=== PATIENT | female | born 1945 | race Caucasian/White ===

== ENCOUNTER 2019-11-20 09:40 | Outpatient (REF) | payer MEDICARE, SELFPAY ==
[2019-11-20 11:21] LABS: Alanine Aminotransferase 18 U/L (0-31); Albumin Level 3.9 g/dL (3.5-5.0); Alkaline Phosphatase 142 U/L (39-117); Anion Gap 13 (12-20); Aspartate Amino Transferase 14 U/L (5-31); Bilirubin Total 0.4 mg/dL (0.0-1.0); Blood Urea Nitrogen 23 mg/dL (9-16); Calcium 9.5 mg/dL (8.4-10.2); Carbon Dioxide 26 mmol/L (22-29); Chloride 106 mmol/L (96-108); Cholesterol 231 mg/dL; Estimated Glomerular Filt Rate > 60; Glucose Random 152 mg/dL (60-115); HDL Cholesterol 48 mg/dL; LDL Cholesterol Calculated 153 mg/dl; Potassium 4.9 mmol/l (3.3-5.1); Sodium 140 mmol/L (135-145); Total Protein 7.4 g/dL (6.5-8.0); Triglycerides 152 mg/dL
[2019-11-20 11:27] LABS: Creatinine Urine 59.82 mg/dL; Microalbum/Creatinine Ratio Ur 157.1 ug/mg cr
[2019-11-20 11:43] LABS: Vitamin D 25-OH Total 44.2 ng/mL (>30)
== END 2019-11-20 09:41 | disposition home or self-care (01) ==
LOC: HO.LAB 09:40
PROVIDERS: PCP Family Medicine; Visit Provider Family Medicine
DX: E11.8 Type 2 diabetes mellitus with unspecified complications (principal); E78.5 Hyperlipidemia, unspecified; I10 Essential (primary) hypertension
CPT/HCPCS: 36415; 80053; 80061; 82043; 82306

== ENCOUNTER 2020-07-15 10:02 | Outpatient (REF) | payer MEDICARE, SELFPAY ==
[2020-07-15 12:17] LABS: Alanine Aminotransferase 20 U/L (0-31); Alkaline Phosphatase 140 U/L (39-117); Anion Gap 15 (12-20); Aspartate Amino Transferase 18 U/L (5-31); Bilirubin Total 0.3 mg/dL (0.0-1.0); Blood Urea Nitrogen 22 mg/dL (9-16); Calcium 9.7 mg/dL (8.4-10.2); Carbon Dioxide 26 mmol/L (22-29); Chloride 106 mmol/L (96-108); Cholesterol 237 mg/dL; Estimated Glomerular Filt Rate > 60; Glucose Random 183 mg/dL (60-115); HDL Cholesterol 47 mg/dL; LDL Cholesterol Calculated 168 mg/dl; Potassium 5.5 mmol/L (3.3-5.1); Sodium 141 mmol/L (135-145); Total Protein 7.6 g/dL (6.5-8.0); Triglycerides 112 mg/dL
[2020-07-15 12:20] LABS: Creatinine Urine 115.88 mg/dL; Microalbum/Creatinine Ratio Ur 252.8 ug/mg cr
== END 2020-07-15 10:03 | disposition home or self-care (01) ==
LOC: HO.LAB 10:02
PROVIDERS: PCP Family Medicine; Visit Provider Family Medicine
DX: E11.8 Type 2 diabetes mellitus with unspecified complications (principal); E78.5 Hyperlipidemia, unspecified; I10 Essential (primary) hypertension
CPT/HCPCS: 36415; 80053; 80061; 82043; 82306

== ENCOUNTER 2021-07-05 10:39 | Outpatient (REF) | payer OTHER, SELFPAY ==
[2021-07-05 11:56] LABS: Estimated Average Glucose 157 mg/dL; Hemoglobin A1c % 7.1 %
[2021-07-05 12:28] LABS: Alanine Aminotransferase 25 U/L (0-31); Albumin Level 3.9 g/dL (3.5-5.0); Alkaline Phosphatase 155 U/L (39-117); Anion Gap 10 (12-20); Aspartate Amino Transferase 22 U/L (5-31); Bilirubin Total 0.4 mg/dL (0.0-1.0); Blood Urea Nitrogen 22 mg/dL (9-16); Calcium 9.5 mg/dL (8.4-10.2); Carbon Dioxide 28 mmol/L (22-29); Chloride 107 mmol/L (96-108); Cholesterol 238 mg/dL; Estimated Glomerular Filt Rate > 60; Glucose Random 153 mg/dL (60-115); HDL Cholesterol 47 mg/dL; LDL Cholesterol Calculated 173 mg/dl; Potassium 4.9 mmol/L (3.3-5.1); Sodium 140 mmol/L (135-145); Total Protein 7.4 g/dL (6.5-8.0); Triglycerides 92 mg/dL
[2021-07-05 14:05] LABS: Creatinine Urine 74.06 mg/dL; Microalbum/Creatinine Ratio Ur 187.6 ug/mg cr
== END 2021-07-05 10:40 | disposition home or self-care (01) ==
LOC: HO.LAB 10:39
PROVIDERS: PCP Family Medicine; Visit Provider Family Medicine
DX: E11.8 Type 2 diabetes mellitus with unspecified complications (principal); E78.5 Hyperlipidemia, unspecified; I10 Essential (primary) hypertension; M81.0 Age-related osteoporosis without current pathological fracture
CPT/HCPCS: 36415; 80053; 80061; 82043; 83036

== ENCOUNTER → 2021-09-19 11:34 | Outpatient (REF) | payer OTHER, SELFPAY ==
--- NOTE | 2021-09-19 11:37 | CA_ITS ---
Transthoracic Echocardiogram Patient (Last, First, Middle): Karen Billy, Gender: Female Date of : 1945 Age: 75 Procedure Date: 09/19/2021 Procedure Type: Transthoracic Echocardiogram Location: OP Height: 154.94 cm Weight: 65.32 kg BSA: 1.64 m2 Heart Rate: bpm BP: 142 / 60 mmHg Underwriting Specialist: HAO Referring MD: Heber Mistry MD Display Specialist: Heber Mistry MD Symptoms: I35.0 - Nonrheumatic aortic (valve) stenosis Study Quality: Adequate ECG Rhythm: Sinus Conclusions: - 1. Normal LV systolic function with grade 2 diastolic dysfunction 2. Probably early aortic stenosis 3. No gross pericardial effusion Findings Left Ventricle Normal left ventricular size, thickness, and systolic function. The visually estimated ejection fraction is between 60-65%. Spectral Doppler is indicative of a pseudonormal filling pattern. E/E prime ratio is >15, consistent with elevated filling pressures. Evidence suggests grade II (moderate) diastolic dysfunction. Right Ventricle Normal right ventricular cavity size and systolic function. Atria The left atrium is normal in size. There is no evidence of interatrial shunt. The right atrium is normal in size. Aortic Valve The aortic valve was not well visualized. There is mild calcification of the aortic valve. There is mild aortic valve stenosis. There is no aortic valve regurgitation. Mitral Valve There is mild anterior and posterior mitral leaflet thickening. There is trace mitral valve regurgitation. There is no mitral valve stenosis. Pulmonic Valve The pulmonic valve was not well visualized. Tricuspid Valve Likely normal tricuspid valve structure and function. Tricuspid regurgitation envelope is inadequate for calculation of right ventricular systolic pressure. Normal right atrial pressure. Great Vessels All visible segments of the aorta are normal in size. The pulmonary artery was not well visualized. Venous The inferior vena cava is normal in size and collapses greater than 50% with inspiration. Pericardium/Pleural There is no evidence of pericardial effusion. Prior Study Comparison No significant change compared to prior study. Measurements 2D Linear Measurements IVSd: 1.01 0.6-0.9/0.6-1.0 cm LVIDd: 4.40 3.9-5.3/4.2-5.9 cm LVIDd Index: 2.68 2.4-3.2/2.2-3.1 cm/m2 LVIDs: 2.70 2.0-3.6 cm LVPWd: 0.99 0.7-1.1 cm LA Diam: 3.30 2.7-3.8/3.0-4.0 cm LAIDs Index: 2.01 1.5-2.3 cm/m2 LV Mass: 184.55 67-162/88-224 g LV Mass Index: 112.53 43-95/49-115 g/m2 LVOT Diam: 1.90 3.0+(-)1.3 cm 2D Systolic Function EF 4C: 63.90 >55% EF 2C: 64.30 >55% EF BiP: 63.40 >55% Mitral Valve MV Pk E: 1.24 MV PK A: 0.95 MV Decel Time: 210.00 E/A: 1.30 E'Lateral: 9.14 E'Medial: 7.83 E/E' Med: 15.80 E/E' Lat: 13.60 PHT: 62.00 MVA PHT: 3.55 Decel Crawford: 5.89 Aortic Valve AoV Pk Napoleon: 2.00 AoV Mn Napoleon: 1.28 AoV VTI: 0.44 AoV Pk Grad: 16.00 Aov Mn Grad: 7.00 DARLYN Cont.VTI: 1.86 LVOT LVOT Pk Napoleon: 1.31 LVOT Mn Napoleon: 0.87 LVOT VTI: 0.31 LVOT Pk Grad: 7.00 LVOT Mn Grad: 4.00 LVOT Diam: 1.90 LVOT Area: 2.84 Diastolic Function MV Pk E: 1.24 MV Pk A: 0.95 E/A: 1.30 E'Medial: 7.83 E/E' Med: 15.80 E' Laterial: 9.14 E/E' Lat: 13.60 Right Ventricle TAPSE (mm): 22.70 TVS' Napoleon: 11.20 Tricuspid Valve RA Press: 3.00 Great Vessels Aorta Sinus of Valsalva: 2.45 2.0-3.[address] [place]: 1.75 1.7-3.4 cm Ao Asc: 3.30 2.1-3.4 cm Updated in Other Vendor System with Status of Final Heber Mistry MD electronically signed on 09/19/2021 4:06:41 PM with status of Final
== END ==
LOC: HO.CARD 11:34
PROVIDERS: PCP Family Medicine; Visit Provider Internal Medicine Cardiovascular Disease
DX: I35.0 Nonrheumatic aortic (valve) stenosis (principal); I51.9 Heart disease, unspecified
CPT/HCPCS: 93306

== ENCOUNTER → 2021-11-09 12:28 | Outpatient (BNVA) | payer OTHER, SELFPAY | PROVIDERS: PCP Family Medicine; Referring Provider Family Medicine; Visit Provider Internal Medicine Cardiovascular Disease | DX: I35.0 Nonrheumatic aortic (valve) stenosis (principal); I10 Essential (primary) hypertension | CPT/HCPCS: 93005; 99212 ==

== ENCOUNTER 2022-04-06 10:42 | Outpatient (REF) | payer OTHER, SELFPAY ==
--- NOTE | ~2022-04-06 | MM_ITS ---
EXAMINATION: BONE DENSITOMETRY CLINICAL INDICATION: Osteoporosis. COMPARISON: Previous BD dated 11/26/2018 and baseline BD dated 04/29/2007. TECHNIQUE: Using a Ring DXA System (software version: 13.1) manufactured by [employer], dual-energy x-ray absorptiometry was performed of the lumbar spine and left hip. The images are of good technical quality. Summary results are attached. FINDINGS: AP SPINE L1-L4: Current: BMD 1.184 g/cm2, Z-score 1.8, T-score 0.0, normal, 1.4% decrease from previous, 12.1% increase from baseline (<5% change is not significant). Prior: BMD 1.201 g/cm2. Baseline: BMD 1.056 g/cm2. LEFT FEMUR, NECK: Current: BMD 0.505 g/cm2, Z-score -1.8, T-score -3.8, osteoporosis. Prior: BMD 0.633 g/cm2. Baseline: BMD 0.821 g/cm2. LEFT FEMUR, TOTAL: Current: BMD 0.492 g/cm2, Z-score -2.2, T-score -4.1, osteoporosis, 10.1% decrease from previous, 36.6% decrease from baseline (<5% change is not significant). Prior: BMD 0.547 g/cm2. Baseline: BMD 0.776 g/cm2. IDENTIFIED RISK FACTORS: Secondary osteoporosis (early menopause). HISTORY OF FRACTURE: None listed. MEDICATIONS: Vitamin D. MM/XR DEXA axial skeleton IMPRESSION: 1. DIAGNOSIS: Osteoporosis based on the lowest T-score value of -4.1 in the total femur applying World Health Organization criteria. 2. 10-YEAR FRACTURE RISK PREDICTION, FRAX: According to the guidelines, FRAX calculation should only be performed on patients in the osteopenia bone density category. Therefore, FRAX was not performed on this patient.? 3. Treatment Recommendations: NOF guidelines recommend consideration for treatment in postmenopausal women and men age 50 and older presenting with the following: -A hip or vertebral (clinical or morphometric) fracture. -T-score less than or equal to -2.5 at the femoral neck or spine after appropriate evaluation to exclude secondary causes. -Low bone mass at the hip or spine and a 10-year fracture probability by FRAX of greater than or equal to 3% for hip fracture or greater than or equal to 20% for major osteoporotic fracture based on the [place] adapted WHO algorithm. 4. Other Recommendations: All treatment decisions require clinical judgment and consideration of individual patient factors, including patient preferences, comorbidities, previous drug use, risk factors not captured in the FRAX model (e.g. frailty, falls, vitamin D deficiency, increased bone turnover, interval significant decline in bone density) and possible under or overestimation of fracture risk by FRAX. Additional medical evaluation for secondary cause of low bone mineral density may be appropriate. FUTURE SCAN RECOMMENDATION: People with diagnosed cases of osteoporosis or at high risk for fracture should have regular bone mineral density tests. For patients eligible for Medicare, routine testing is allowed once every 2 years. The testing frequency can be increased to one year for patients who have rapidly progressing disease, those who are receiving or discontinuing medical therapy to restore bone mass, or have additional risk factors.
== END 2022-04-06 10:43 | disposition home or self-care (01) ==
LOC: HO.MAMMO 10:42
PROVIDERS: PCP Family Medicine; Visit Provider Family Medicine
DX: Z13.820 Encounter for screening for osteoporosis (principal); Z78.0 Asymptomatic menopausal state
CPT/HCPCS: 77080

== ENCOUNTER 2023-02-02 10:30 | Outpatient (REF) | payer OTHER, SELFPAY ==
[2023-02-02 12:11] LABS: Creatinine Urine 81.69 mg/dL
[2023-02-02 12:12] LABS: Parathyroid Hormone Intact 72.1 pg/mL (8.7-77.1)
[2023-02-02 12:13] LABS: Alanine Aminotransferase 17 U/L (0-31); Alkaline Phosphatase 144 U/L (39-117); Anion Gap 16 (12-20); Aspartate Amino Transferase 18 U/L (5-31); Bilirubin Total 0.4 mg/dL (0.0-1.0); Blood Urea Nitrogen 27 mg/dL (9-16); Calcium 9.9 mg/dL (8.4-10.2); Carbon Dioxide 24 mmol/L (22-29); Chloride 105 mmol/L (96-108); Cholesterol 246 mg/dL (<200); Cholesterol 248 mg/dL (<200); Estimated Glomerular Filt Rate > 60; Glucose Random 185 mg/dL (60-115); HDL Cholesterol 46 mg/dL (>40); HDL Cholesterol 47 mg/dL (>40); LDL Cholesterol Calculated 173 mg/dL (<100); LDL Cholesterol Calculated 177 mg/dL (<100); Potassium 4.1 mmol/L (3.3-5.1); Sodium 141 mmol/L (135-145); Total Protein 8.2 g/dL (6.5-8.0); Triglycerides 128 mg/dL (<150); Triglycerides 130 mg/dL (<150)
[2023-02-02 12:14] LABS: Uric Acid 6.6 mg/dL (2.4-5.7)
[2023-02-02 12:25] LABS: Vitamin D 25-OH Total 41.3 ng/mL (>30)
[2023-02-02 12:30] LABS: Microalbum/Creatinine Ratio Ur 784.6 ug/mg cr (<30)
[2023-02-02 12:32] LABS: TSH reflex Free T4 1.51 uIU/mL (0.32-4.0)
[2023-02-02 12:45] LABS: Folate 8.2 ng/mL (> or = 4.0); Vitamin B12 1053 pg/mL (200-900)
[2023-02-02 12:48] LABS: Reflex LDLD? No
== END 2023-02-02 10:31 | disposition home or self-care (01) ==
LOC: HO.HHCL 10:30
PROVIDERS: Internal Medicine Cardiovascular Disease; Visit Provider Family Medicine
DX: M81.8 Other osteoporosis without current pathological fracture (principal); E78.5 Hyperlipidemia, unspecified; I25.10 Atherosclerotic heart disease of native coronary artery without angina pectoris; E11.65 Type 2 diabetes mellitus with hyperglycemia; I10 Essential (primary) hypertension; M10.9 Gout, unspecified
CPT/HCPCS: 36415; 80053; 80061; 82043; 82306; 82570; 82607; 82746; 83970; 84443; 84550

== ENCOUNTER 2023-05-29 12:01 | Outpatient (REF) | payer OTHER, SELFPAY ==
--- NOTE | ~2023-05-29 | XR_ITS ---
EXAMINATION: XR ELBOW, LEFT CLINICAL INFORMATION: Pain of 3 weeks' duration, without injury. COMPARISON: None available. TECHNIQUE: AP, lateral, and oblique views of the left elbow. FINDINGS: Bony alignment and mineralization are normal. No fracture, dislocation or left elbow joint effusion is seen. There is no unusual degenerative change. No focal soft tissue swelling, gas or foreign body seen. A 1 mm round soft tissue calcification is incidentally noted in the anteromedial soft tissues towards the elbow crease. XR/XR elbow LT min 3V IMPRESSION: Unremarkable left elbow.
== END 2023-05-29 12:02 | disposition home or self-care (01) ==
LOC: HO.HHCX 12:01
PROVIDERS: Visit Provider Family Medicine
DX: M25.522 Pain in left elbow (principal)
CPT/HCPCS: 73080

== ENCOUNTER 2023-07-20 14:34 | Outpatient (REF) | payer OTHER, SELFPAY ==
--- NOTE | ~2023-07-20 | US_ITS ---
EXAMINATION: US VENOUS ULTRASOUND WITH DOPPLER LOWER EXTREMITY, BILATERAL CLINICAL INFORMATION: Bilateral lower extremity swelling. History of DVT. COMPARISON: Ultrasound venous Doppler study September 30, 2019 TECHNIQUE: Ultrasound of the deep veins is performed from the hip to the calf with compression sonography and color and pulse Doppler assessment. Spectral analysis with color-flow imaging is performed. FINDINGS: RIGHT: There is normal venous compression and respiratory variation and augmented flow. The visualized common femoral vein, superficial femoral vein, profunda femoral vein, popliteal vein, and the trifurcation region shows no evidence of deep venous thrombosis. There is no significant popliteal fossa cyst. LEFT: Duplicated femoral vein. There is thrombus present in the anterior branch of the femoral vein from the proximal thigh to the popliteal vein. The proximal portion of the popliteal venous thrombosis. The mid and distal portion of the popliteal vein demonstrates partial vascular flow. The posterior duplicated branch of the femoral vein demonstrates normal patent vascularity. Normal vascular flow in the greater saphenous vein and the profunda vein. The posterior tibial vein and the peroneal vein in the calf are both patent. Compared to prior study of September 29, 2022 thrombus in the left lower extremity has progressed. Difficult to otherwise determine chronicity of the thrombus. US/US venous duplex LE BI IMPRESSION: 1. No DVT demonstrated in the right lower extremity. 2. Duplicated left femoral vein. There is thrombus present in the anterior branch of the femoral vein from the proximal thigh to the popliteal vein. The mid and distal portion of the popliteal vein demonstrates partial vascular flow. This critical result was discussed with Erum Quinones on 07/20/2023 at 1530 hours and it was ascertained that the content and urgency of the report was understood at the time of direct communication.
== END 2023-07-20 14:35 | disposition home or self-care (01) ==
LOC: HO.US 14:34
PROVIDERS: PCP Family Medicine; Visit Provider Family Medicine
DX: Z13.89 Encounter for screening for other disorder (principal)
CPT/HCPCS: 93970

== ENCOUNTER 2023-07-20 15:46 | Emergency (ER) | payer OTHER, SELFPAY ==
--- NOTE | 2023-07-20 16:14 | ED.GENADULT ---
HPI - General Adult General Chief complaint: General Medical Stated complaint: ultrasound sent here for blood clot Time Seen by Provider: 07/20/23 19:04 Source: patient, RN notes reviewed, old records reviewed and sizing end bander (Belizean) Mode of arrival: ambulatory Limitations: language barrier ([place]an speaking) History of Present Illness ED Provider: NATACHA DURHAM PA-C HPI narrative: 77-year-old female with past medical history significant for DVT in the left lower extremity (2019) no longer on Eliquis, hypertension, hyperlipidemia, aortic stenosis presents to the emergency department today after receiving positive DVT results. She states that she was evaluated at [facility] for left lower leg pain. Venous duplex was ordered which shows positive DVT in the left anterior branch of femoral vein of proximal thigh extending to popliteal vein. There is no DVT within the right lower extremity. She received call with these critical results today and was advised to come to the ED. she takes aspirin 81 mg daily. Is no longer on anticoagulation from previous DVTs. Reports left lower leg pain 02/28 at present. She denies chest pain, cough, shortness of breath, dyspnea, hemoptysis, headache, dizziness. Denies recent travel or long car rides. radiation therapist utilized throughout visit to communicate with patient. Related Data Home Medications ?Medication ?Instructions ?Recorded ?Confirmed aspirin 81 mg tablet,delayed 81 mg PO DAILY 11/09/21 11/09/21 release cholecalciferol (vitamin D3) 25 25 mcg PO DAILY 11/09/21 11/09/21 mcg (1,000 unit) capsule diazepam 5 mg tablet 5 mg PO DAILY PRN 11/09/21 11/09/21 diltiazem HCl 300 mg 300 mg PO DAILY 11/09/21 11/09/21 capsule,extended release 24 hr fluticasone propionate 110 0 mcg inhalation 11/09/21 11/09/21 mcg/actuation HFA aerosol inhaler (Flovent HFA) loratadine 10 mg tablet 10 mg PO DAILY 11/09/21 11/09/21 metformin 500 mg tablet,extended 1,000 mg PO BID 11/09/21 11/09/21 release 24 hr omeprazole 20 mg capsule,delayed 20 mg PO DAILY PRN 11/09/21 11/09/21 release Previous Rx's ?Medication ?Instructions ?Recorded losartan 100 mg tablet 100 mg PO DAILY #90 tabs 06/08/20 rosuvastatin 10 mg tablet (Crestor) 10 mg PO DAILY #30 tabs 02/05/23 apixaban 5 mg (74 tabs) tablets in 5 mg PO BID #74 ea 07/20/23 a dose pack (Eliquis DVT-PE Treat 30D Start) Allergies Allergy/AdvReac Type Severity Reaction Status Date / Time penicillin V Allergy Unknown rash Verified 07/20/23 16:17 Penicillins [PENICILLINS] Allergy Unknown RASH Unverified 11/06/19 17:04 Review of Systems Review of Systems: Constitutional: No fever, chills, fatigue, night sweats, weight changes ENT/Mouth: No ear pain, hearing loss, nasal congestion, sinus pain, rhinorrhea, sore throat Eyes: No eye pain, swelling, redness, vision changes, discharge Cardio: No chest pain, palpitations, [place], orthopnea, peripheral edema Pulm: No SOB, cough, sputum, wheezing, dyspnea, hemoptysis GI: No nausea, vomiting, hematemesis, abdominal pain, diarrhea, constipation, hematochezia, melena : No irregular bleeding, dysuria, frequency, urgency, hesitancy, hematuria, flank pain, urinary flow changes, urinary incontinence or retention MSK: No back pain, neck pain, joint pain, myalgias, +left calf pain Skin: No lesions, rashes Neuro: No weakness, numbness, paresthesias, LOC, dizziness, headache Psych: No anxiety/panic, depression, SI/HI, AH/VH All other systems reviewed and are negative. [facility] Past Medical History Attestation statement: The following information was validated with the patient. Source: old records reviewed and nursing notes reviewed Medical History Hyperlipidemia HTN (hypertension) Surgical History History of section Family History Family History Father No problems noted. Mother No problems noted. Social History Social History Advance Directives: No Advance Directives Information Provided: No Do you have a plan to hurt others: No Plan Physical Exam ED Vital Signs: Vital Signs - 24 hr 07/20/23 21:22 Temperature 97.8 F Pulse Rate 77 Respiratory Rate 18 Blood Pressure 162/62 H Pulse Oximetry 97 Oxygen Delivery Method Room Air BMI result Body Mass Index 134561.9 Patient is slightly hypertensive, vitals otherwise WNL Const General: cooperative, healthy appearing, comfortable and no acute distress Orientation/consciousness: patient oriented x3 Limitations: no limitations HENMT Head: Yes normal to inspection, Yes No palpable skull fracture present, Yes normocephalic and Yes atraumatic Eyes General: appearance normal, both eyes and all related structures Pupils: Equal, round and reactive pupils present Neck Neck: Yes normal visual inspection, Yes full ROM, Yes no lymphadenopathy and Yes no meningeal signs Chest Chest palpation & inspection: normal inspection of the chest and normal palpation of entire chest wall Resp Effort & Inspection: normal respiratory effort and able to speak in complete sentences Auscultation: clear to auscultation bilaterally Cardio Rate: regular rate Rhythm: regular rhythm Skin General skin exam: no rashes or lesions noted Neuro General: patient oriented x3, gait normal, tone normal, no meningeal signs and no focal motor deficits Cranial nerves: Yes Equal, round and reactive pupils present Extrem Other: + minimal calf tenderness noted to left calf. No peripheral edema. General: Yes normal to inspection, Yes full ROM, Yes capillary refill normal, Yes normal exam except as noted and Yes normal gait Course Course Course Narrative: This is a Rapid Medical Examination (RME) performed by Perla Durham PA-C in triage. Full HPI, ROS, assessment and treatment plan per primary provider in the Main ED. 77 yo female hx of LLE DVT (2019), HTN, HDL aortic stenosis here for eval after receiving positive DVT result. states she was evaluated at [facility] for left lower leg swelling. venous duplex ordered showing RLE negative for DVT. LLE + for DVT (anterior branch of FV prox thigh to pop vein), difficult to determine chronicity. Not on AC. Plan: labs Reevaluation(s) Reevaluation #1: 2115-- CBC with slight leukocytosis to 11.4 of unknown significance. No left shift. H&H stable. No anemia. Chemistry with hyperkalemia to 5.8. Patient was treated with 10 of Lokelma. Repeat chemistry showing normal potassium at 3.9. EKG showing normal sinus rhythm at a rate of 69 beats per minute, QT 374, QTC 400, no acute ischemic changes or ST elevations. BUN slightly elevated to 28, chronic when compared to priors. Creatinine WNL. Random glucose 130. Calcium slightly elevated at 10.5. Venous duplex obtained earlier today does not demonstrate DVT in the right lower extremity. It does demonstrate duplicated left femoral vein with thrombus present in anterior branch of the femoral vein from the proximal thigh to the popliteal vein. The mid and distal portion of the popliteal vein demonstrates partial vascular flow. > patient treated with 1 dose of Eliquis in ED. Will send home with Eliquis dose pack for 30 days. Advised patient to take 10 mg by mouth twice daily for 7 days followed by 5 mg by mouth twice daily for 30 days. Informed her that she needs to follow up with her PCP for repeat potassium levels along with subsequent prescriptions of Eliquis. She verbalizes understanding. She does not have any concerns at present. Patient has remained stable throughout ED visit today. Discussed worrisome signs and symptoms and when to return to the ED. All questions answered at this time. Patient is agreeable with disposition and stable for discharge. Medications Administered Discontinued Medications Generic Name Dose Route Start Last Admin Trade Name Freq PRN Reason Stop Dose Admin Apixaban 10 mg 07/20/23 19:17 07/20/23 19:25 Apixaban 5 Mg Tablet PO 07/20/23 19:18 10 mg ONCE ONE Administration Sodium Chloride 1,000 mls @ 999 mls/hr 07/20/23 19:45 07/20/23 20:44 Ns IV 07/20/23 20:45 Infused .Q1H1M BRINA Infusion Sodium Zirconium Cyclosilicate 10 gm 07/20/23 19:14 07/20/23 19:25 Sodium Zirconium Cyclosilicate 10 Gm Powd.Pack PO 07/20/23 19:15 10 gm ONCE ONE Administration Medical Decision Making Medical Decision Making MDM Narrative: 77-year-old female with past medical history significant for DVT in the left lower extremity (2019) no longer on Eliquis, hypertension, hyperlipidemia, aortic stenosis presents to the emergency department today after receiving positive DVT results. Patient is slightly hypertensive, vitals otherwise WNL. She has well-appearing. no acute distress. RRR. Lungs are clear to auscultation bilaterally. There is minimal left calf tenderness. No peripheral edema. Ambulating with steady gait. Differential diagnosis includes DVT. Low suspicion for PE, anemia, electrolyte abnormality. Plan for basic labs, re-evaluation. Differential Diagnosis Differential Diagnoses: The differential diagnosis associated with the presentation includes As above Admission/Observation Consideration of admission/observation: Escalation of care including admission/observation considered Admission considered on presentation Lab Data MDM Lab Attestation statement: I reviewed the patient's lab results. As above 07/20/23 16:58 07/20/23 20:42 Labs: Lab Results 07/20/23 07/20/23 Range/Units 16:58 20:42 WBC 11.4 H (4.8-10.8) X10*3/uL RBC 4.48 (4.20-5.50) X10*6/uL Hgb 13.3 (12.0-16.0) g/dl Hct 39.5 (37.0-47.0) % MCV 88.2 (80.0-98.0) fL MCH 29.7 (27.0-33.0) pg MCHC 33.7 (31.0-35.0) g/dl RDW 13.2 (11.0-16.0) % Plt Count 223 (160-400) X10*3/uL MPV 10.7 (9.4-12.3) fL Immature Gran % (Auto) 0.4 (0.0-0.4) % Neut % (Auto) 55.7 (45-73) % Lymph % (Auto) 34.3 (20-40) % Platte % (Auto) 6.8 (2-11) % Eos % (Auto) 1.8 (0-4) % Baso % (Auto) 1.0 (0-2) % Lymph # (Auto) 3.9 (1.2-4.9) X10*3/uL Platte # (Auto) 0.8 (0.1-1.2) X10*3/uL Eos # (Auto) 0.2 (0.0-0.4) X10*3/uL Baso # (Auto) 0.1 (0.0-0.2) X10*3/uL Abs Immat Gran (auto) 0.04 H (0.00-0.03) X10*3/uL Absolute Neuts (auto) 6.3 (2.0-8.3) x10*3/uL Absolute Nucleated RBC 0.000 (0.0-0.012) X10*3/uL Nucleated RBC % (auto) 0.0 (0.0-0.2) /100WBC PT 12.0 (11.1-13.3) SEC INR 1.0 (0.9-1.1) APTT 38.4 H (26.0-36.8) SEC Sodium 142 144 (135-145) mmol/L Potassium 5.8 H 3.9 D (3.3-5.1) mmol/L Chloride 108 110 H (96-108) mmol/L Carbon Dioxide 23 22 (22-29) mmol/L Anion Gap 17 16 (12-20) BUN 28 H 23 H (9-16) mg/dL Creatinine 0.74 0.74 (0.5-1.4) mg/dL Estim Creat Clear Calc -26.4 -26.4 Estimated GFR > 60 > 60 Random Glucose 130 H 177 H (60-115) mg/dL Calcium 10.5 H D 9.6 D (8.4-10.2) mg/dL Magnesium 1.8 (1.6-2.6) mg/dL Total Bilirubin 0.2 (0.0-1.0) mg/dL AST 19 (5-31) U/L ALT 19 (0-31) U/L Alkaline Phosphatase 141 H (39-117) U/L Total Protein 8.0 (6.5-8.0) g/dL Albumin 4.0 (3.5-5.0) g/dL Independent Interpretation I performed an independent interpretation of an: EKG and Ultrasound Interpretation: EKG showing normal sinus rhythm at a rate of 69 beats per minute, QT 374, QTC 400, no acute ischemic changes or ST elevations. Venous duplex of left lower extremity thrombus, agree with radiologist's interpretation. Radiology Impression Discussion of test interpretation with radiology: I have reviewed the radiologist's reading. Radiologist Impression: EXAMINATION: US VENOUS ULTRASOUND WITH DOPPLER LOWER EXTREMITY, BILATERAL CLINICAL INFORMATION: Bilateral lower extremity swelling. History of DVT. COMPARISON: Ultrasound venous Doppler study September 30, 2019 TECHNIQUE: Ultrasound of the deep veins is performed from the hip to the calf with compression sonography and color and pulse Doppler assessment. Spectral analysis with color-flow imaging is performed. FINDINGS: RIGHT: There is normal venous compression and respiratory variation and augmented flow. The visualized common femoral vein, superficial femoral vein, profunda femoral vein, popliteal vein, and the trifurcation region shows no evidence of deep venous thrombosis. There is no significant popliteal fossa cyst. LEFT: Duplicated femoral vein. There is thrombus present in the anterior branch of the femoral vein from the proximal thigh to the popliteal vein. The proximal portion of the popliteal venous thrombosis. The mid and distal portion of the popliteal vein demonstrates partial vascular flow. The posterior duplicated branch of the femoral vein demonstrates normal patent vascularity. Normal vascular flow in the greater saphenous vein and the profunda vein. The posterior tibial vein and the peroneal vein in the calf are both patent. Compared to prior study of September 29, 2022 thrombus in the left lower extremity has progressed. Difficult to otherwise determine chronicity of the thrombus. US/US venous duplex LE BI IMPRESSION: 1. No DVT demonstrated in the right lower extremity. 2. Duplicated left femoral vein. There is thrombus present in the anterior branch of the femoral vein from the proximal thigh to the popliteal vein. The mid and distal portion of the popliteal vein demonstrates partial vascular flow. This critical result was discussed with Erum Quinones on 07/20/2023 at 1530 hours and it was ascertained that the content and urgency of the report was understood at the time of direct communication. Independent Historian Clinical information obtained from an independent historian. 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 You were started on Eliquis. You were given your 1st dose in the ED today. You will take 10 mg by mouth twice daily for the next 7 days. Then you will switch to 5 mg by mouth twice daily for 30 days. take this as prescribed and do not miss any doses. You need to follow-up with your primary care provider as you will likely need to take Eliquis for 6 months. They will write you further prescriptions for this. Additionally your labs showed high potassium. You were treated for this in the ED today. You were give IV fluids. Please make sure you follow up with PCP for repeat potassium in 2 weeks to ensure that it is normal. Return to the ED if you develop chest pain, palpitations, shortness of breath, cough with bloody sputum. Prescriptions: New Eliquis DVT-PE Treat 30D Start 5 mg (74 tabs) tablets,dose pack 5 mg PO BID Qty: 74 0RF Rx Instructions: Take 10mg (2 tabs) by mouth for 7 days. then switch to 5mg (1 tab) by mouth for 30 days. No Action losartan 100 mg tablet 100 mg PO DAILY Qty: 90 2RF rosuvastatin [Crestor] 10 mg tablet 10 mg PO DAILY Qty: 30 5RF loratadine 10 mg tablet 10 mg PO DAILY aspirin 81 mg tablet,delayed release (DR/EC) 81 mg PO DAILY cholecalciferol (vitamin D3) 25 mcg (1,000 unit) capsule 25 mcg PO DAILY diltiazem HCl 300 mg capsule,extended release 24hr 300 mg PO DAILY fluticasone propionate [Flovent HFA] 110 mcg/actuation HFA aerosol inhaler 0 mcg inhalation metformin 500 mg tablet extended release 24 hr 1,000 mg PO BID diazepam 5 mg tablet 5 mg PO DAILY PRN omeprazole 20 mg capsule,delayed release(DR/EC) 20 mg PO DAILY PRN Referrals: Erum Quinones MD [Primary Care Provider] - Interventions: ED Discharge Assessment Last Done: 07/20/23 21:22 Discharge Date/Time: 07/20/23 21:24 Print Language: [place]an
[2023-07-20 16:15] VITALS: BP 171/61; PULSE 87; RESP 18; TEMP 37.2; O2SAT 97; BMI 104149.9
[2023-07-20 17:01] LABS: MANUAL DIFF FLAG NO
[2023-07-20 17:03] LABS: Basophils Absolute Auto 0.1 X10*3/uL (0.0-0.2); Eosinophils Absolute Auto 0.2 X10*3/uL (0.0-0.4); Eosinophils Percent Auto 1.8 % (0-4); Hematocrit 39.5 % (37.0-47.0); Hemoglobin 13.3 g/dl (12.0-16.0); Imm Gran Abs Auto 0.04 X10*3/uL (0.00-0.03); Imm Gran Pct Auto 0.4 % (0.0-0.4); Lymphocytes Absolute Auto 3.9 X10*3/uL (1.2-4.9); Lymphocytes Percent Auto 34.3 % (20-40); Mean Corpuscular HGB Conc 33.7 g/dl (31.0-35.0); Mean Corpuscular Hemoglobin 29.7 pg (27.0-33.0); Mean Corpuscular Volume 88.2 fL (80.0-98.0); Mean Platelet Volume 10.7 fL (9.4-12.3); Monocytes Absolute Auto 0.8 X10*3/uL (0.1-1.2); Monocytes Percent Auto 6.8 % (2-11); Neutrophils Absolute Auto 6.3 x10*3/uL (2.0-8.3); Neutrophils Percent Auto 55.7 % (45-73); Platelet Count 223 X10*3/uL (160-400); Red Blood Count 4.48 X10*6/uL (4.20-5.50); Red Cell Distribution Width 13.2 % (11.0-16.0); White Blood Count 11.4 X10*3/uL (4.8-10.8)
[2023-07-20 17:16] LABS: Partial Thromboplastin Time 38.4 SEC (26.0-36.8)
[2023-07-20 17:22] LABS: Alanine Aminotransferase 19 U/L (0-31); Alkaline Phosphatase 141 U/L (39-117); Anion Gap 17 (12-20); Aspartate Amino Transferase 19 U/L (5-31); Bilirubin Total 0.2 mg/dL (0.0-1.0); Blood Urea Nitrogen 28 mg/dL (9-16); Calcium 10.5 mg/dL (8.4-10.2); Carbon Dioxide 23 mmol/L (22-29); Chloride 108 mmol/L (96-108); Creatinine Clr Calc Pharmacy -26.4; Estimated Glomerular Filt Rate > 60; Glucose Random 130 mg/dL (60-115); Magnesium 1.8 mg/dL (1.6-2.6); Potassium 5.8 mmol/L (3.3-5.1); Sodium 142 mmol/L (135-145)
--- NOTE | 2023-07-20 17:30 | ECG_ITS ---
Test Reason : HYPERKALEMIC Blood Pressure : / mmHG Vent. Rate : 069 BPM Atrial Rate : 069 BPM P-R Int : 124 ms QRS Dur : 090 ms QT Int : 374 ms P-R-T Axes : 048 -20 122 degrees QTc Int : 400 ms Normal sinus rhythm Nonspecific T wave abnormality Abnormal ECG When compared with ECG of 20-FEB-2019 13:16, Premature atrial complexes are no longer Present Referred By: Wendy Durham Electronically Signed By:OZ GLASS
[2023-07-20] MEDS: Sodium Zirconium Cyclosilicate 10 GM POWD.PACK PO (19:25)
[2023-07-20] MEDS: Apixaban 5 MG TABLET 10 MG PO (19:25)
[2023-07-20] MEDS: 0.9 % Sodium Chloride 1,000 ML 999 ML IV (19:51)
[2023-07-20 21:04] LABS: Anion Gap 16 (12-20); Blood Urea Nitrogen 23 mg/dL (9-16); Calcium 9.6 mg/dL (8.4-10.2); Carbon Dioxide 22 mmol/L (22-29); Chloride 110 mmol/L (96-108); Creatinine Clr Calc Pharmacy -26.4; Estimated Glomerular Filt Rate > 60; Glucose Random 177 mg/dL (60-115); Potassium 3.9 mmol/L (3.3-5.1); Sodium 144 mmol/L (135-145)
[2023-07-20 21:22] VITALS: BP 162/62; PULSE 77; RESP 18; TEMP 36.6; O2SAT 97
== END 2023-07-20 21:24 | disposition home or self-care (01) ==
PROVIDERS: Physician Assistant Medical; Emergency Provider Emergency Medicine Emergency Medical Services; PCP Family Medicine
DX: I82.412 Acute embolism and thrombosis of left femoral vein (principal); E87.5 Hyperkalemia; I10 Essential (primary) hypertension; Z79.82 Long term (current) use of aspirin
CPT/HCPCS: 36415; 80048; 80053; 83735; 85025; 85610; 85730; 93005; 93970; 96360; 99283; 99284

== ENCOUNTER → 2023-07-20 17:30 | Outpatient (BNV) | payer OTHER, SELFPAY | PROVIDERS: Emergency Provider Emergency Medicine Emergency Medical Services; PCP Family Medicine; Visit Provider Internal Medicine | DX: R94.31 Abnormal electrocardiogram [ECG] [EKG] (principal); E87.5 Hyperkalemia | CPT/HCPCS: 93010 ==

== ENCOUNTER → 2023-08-10 12:21 | Outpatient (BNV) | payer OTHER, SELFPAY | PROVIDERS: PCP Family Medicine; Referring Provider Family Medicine; Visit Provider Internal Medicine | DX: I82.412 Acute embolism and thrombosis of left femoral vein (principal) | CPT/HCPCS: 99204; G2211 ==

== ENCOUNTER 2023-10-29 12:10 | Outpatient (AMB) | payer OTHER, SELFPAY ==
--- NOTE | 2023-10-29 12:27 | MHC.OFFVIS ---
Vital Signs 10/29/23 12:28 Height 5 ft 1 in Weight 152 lb 1.903 oz BMI 28.7 BP 130/68 Blood Pressure Location Lt brachial Position Sitting Pulse 63 Intake Visit Reasons: f/up 2 yr Intake Note: 2 year follow-up has ekg in June hearts feeling good c/o left leg pain when walking Display Specialist: Display Specialist Present Accompanied by: Friend Allergies penicillin V Allergy (Unknown, Verified 08/10/23 13:08) rash Penicillins [PENICILLINS] Allergy (Unknown, Unverified 08/10/23 13:08) RASH Medication List - Last Reconciled 10/29/23 by Heber Mistry MD apixaban (Eliquis DVT-PE Treat 30D Start) 5 mg PO BID cholecalciferol (vitamin D3) 25 mcg PO DAILY diazepam 5 mg PO DAILY PRN diltiazem HCl CD 300 mg PO DAILY fluticasone propionate 110 mcg/actuation (Flovent HFA) 0 mcg inhalation loratadine 10 mg PO DAILY losartan 100 mg PO DAILY metformin ER 1,000 mg PO BID omeprazole 20 mg PO DAILY PRN rosuvastatin (Crestor) 10 mg PO DAILY HPI Comments Details: Karen comes for follow-up. She was recently diagnose with recurrent DVT and has been put on Eliquis. He has been seen by Hematology. She walks with a walker now due to reduced strength in both lower extremity. No falls. Denies any chest pain or shortness of breath. Blood pressures been well controlled generally. No other cardiac symptoms of exertional chest pain. No worsening shortness of breath. No orthopnea, PND, leg edema. No prolonged palpitations. [facility] Medical History Left leg DVT Hyperlipidemia HTN (hypertension) Surgical History History of section Family History Father No problems noted. Mother No problems noted. Social History Household Members: Other Patient Tobacco Use Status: Never used Tobacco Current occupational status: retired Review of Systems Const Denies chills, Denies fatigue, Denies fever(s), Denies frequent falls, Denies weakness, Denies weight gain and Denies weight loss ENT Denies dizziness Card Denies chest pain, Denies leg edema, Denies lightheadedness, Denies palpitations, Denies dyspnea, Denies dyspnea on exertion, Denies orthopnea and Denies other (loss of consciousness) Resp Denies cough, Denies dyspnea and Denies dyspnea on exertion GI Denies hematochezia and Denies change in stool character Musc Denies abnormal gait, Denies muscle weakness, Denies numbness, Denies radiating pain into limb and Denies tingling Neuro Denies abnormal gait, Denies dizziness, Denies frequent falls, Denies numbness, Denies tingling and Denies weakness Endo Denies fatigue and Denies palpitations Physical Exam Vital Signs: Last Vital Signs Pulse 63 10/29/23 12:28 BP 130/68 10/29/23 12:28 BMI result Body Mass Index 28.7 Const General: cooperative, comfortable, no acute distress, alert, awake and well groomed Nutritional Appearance: overweight Orientation/consciousness: patient oriented x3 Limitations: ambulation with walker Neck Neck: Yes trachea midline, Yes supple and Yes no JVD Resp Effort & Inspection: normal respiratory effort Auscultation: clear to auscultation bilaterally Cardio Jugular venous distension: no JVD Palpation: normal PMI Rate: regular rate Rhythm: regular rhythm Heart sounds: S1 normal heart sound present, S2 normal heart sound present, no click, no gallops, Murmur heart sound present systolic early and no rubs GI Auscultation: normal bowel sounds Skin General skin exam: no rashes or lesions noted Neuro General: patient oriented x3 and no focal motor deficits Extrem General: Yes no clubbing, cyanosis or edema Assessment & Plan Assessment & Plan (1) Aortic stenosis: Code(s): I35.0 - Nonrheumatic aortic (valve) stenosis Category: Medical Plan: Aortic stenosis which clinically does not have to have progressed significantly. Does not require echocardiogram. Probably repeat echocardiogram 2 years time. Continue risk factor modification. Currently on statin therapy. Continue current aggressive blood pressure control, see below. (2) HTN (hypertension): Code(s): I10 - Essential (primary) hypertension Category: Medical Plan: Hypertension which is currently well optimized on current therapy. Importance of good blood pressure control was discussed. Encouraged to participate in regular physical activity. Low-salt diet was discussed. Continue current therapy. Advised to monitor blood pressure at home maintain a log. (3) DVT (deep venous thrombosis): Code(s): I82.409 - Acute embolism and thrombosis of unspecified deep veins of unspecified lower extremity Category: Medical Plan: Recurrent DVT in this elderly woman currently on Eliquis therapy. Being seen by Hematology. Seems like these episodes were unprovoked and would continue to use Eliquis therapy lifelong. Being monitored by your office as well as by the hematology team. Will follow up in the clinic in 2 years time, sooner p.r.n.. Thank you for allowing me to partake in the care Coding Level of Care Code Est Pt Level 4 (02714) Diagnoses Aortic stenosis I35.0 HTN (hypertension) I10 DVT (deep venous thrombosis) I82.409
[2023-10-29 12:28] VITALS: BP 130/68; PULSE 63; BMI 28.7
== END 2023-10-29 12:47 | disposition home or self-care (01) ==
PROVIDERS: PCP Family Medicine; Visit Provider Internal Medicine Cardiovascular Disease
DX: I35.0 Nonrheumatic aortic (valve) stenosis (principal); I10 Essential (primary) hypertension; I82.409 Acute embolism and thrombosis of unspecified deep veins of unspecified lower extremity
CPT/HCPCS: 99214

== ENCOUNTER → 2023-10-29 12:10 | Outpatient (BNVA) | payer OTHER, SELFPAY | PROVIDERS: PCP Family Medicine; Visit Provider Internal Medicine Cardiovascular Disease | DX: I35.0 Nonrheumatic aortic (valve) stenosis (principal); I10 Essential (primary) hypertension; I82.409 Acute embolism and thrombosis of unspecified deep veins of unspecified lower extremity; M79.605 Pain in left leg; Z79.01 Long term (current) use of anticoagulants | CPT/HCPCS: 99212 ==

== ENCOUNTER 2024-03-03 08:36 | Outpatient (REF) | payer OTHER, SELFPAY ==
[2024-03-03 11:04] LABS: MANUAL DIFF FLAG NO
[2024-03-03 11:23] LABS: Basophils Absolute Auto 0.1 X10*3/uL (0.0-0.2); Eosinophils Absolute Auto 0.3 X10*3/uL (0.0-0.4); Eosinophils Percent Auto 2.9 % (0-4); Hematocrit 38.2 % (37.0-47.0); Hemoglobin 12.5 g/dl (12.0-16.0); Imm Gran Abs Auto 0.03 X10*3/uL (0.00-0.03); Imm Gran Pct Auto 0.3 % (0.0-0.4); Lymphocytes Percent Auto 35.7 % (20-40); Mean Corpuscular HGB Conc 32.7 g/dl (31.0-35.0); Mean Corpuscular Hemoglobin 28.9 pg (27.0-33.0); Mean Corpuscular Volume 88.2 fL (80.0-98.0); Mean Platelet Volume 11.5 fL (9.4-12.3); Monocytes Percent Auto 8.9 % (2-11); Neutrophils Absolute Auto 5.7 x10*3/uL (2.0-8.3); Neutrophils Percent Auto 51.2 % (45-73); Platelet Count 244 X10*3/uL (160-400); Red Blood Count 4.33 X10*6/uL (4.20-5.50); Red Cell Distribution Width 13.1 % (11.0-16.0); White Blood Count 11.2 X10*3/uL (4.8-10.8)
[2024-03-03 11:48] LABS: Alanine Aminotransferase 16 U/L (0-31); Albumin Level 3.8 g/dL (3.5-5.0); Alkaline Phosphatase 202 U/L (39-117); Anion Gap 12 (12-20); Aspartate Amino Transferase 22 U/L (5-31); Bilirubin Total 0.3 mg/dL (0.0-1.0); Blood Urea Nitrogen 26 mg/dL (9-16); Calcium 9.8 mg/dL (8.4-10.2); Carbon Dioxide 27 mmol/L (22-29); Chloride 107 mmol/L (96-108); Estimated Glomerular Filt Rate > 60; Glucose Random 173 mg/dL (60-115); Potassium 5.2 mmol/L (3.3-5.1); Sodium 141 mmol/L (135-145)
[2024-03-03 12:00] LABS: Folate 7.8 ng/mL (> or = 4.0); Vitamin B12 890 pg/mL (200-900)
[2024-03-03 12:14] LABS: Alanine Aminotransferase 15 U/L (0-31); Albumin Level 3.8 g/dL (3.5-5.0); Alkaline Phosphatase 198 U/L (39-117); Anion Gap 13 (12-20); Aspartate Amino Transferase 21 U/L (5-31); Bilirubin Total 0.3 mg/dL (0.0-1.0); Blood Urea Nitrogen 25 mg/dL (9-16); Calcium 9.8 mg/dL (8.4-10.2); Carbon Dioxide 26 mmol/L (22-29); Chloride 107 mmol/L (96-108); Cholesterol 119 mg/dL (<200); Estimated Glomerular Filt Rate > 60; Glucose Random 171 mg/dL (60-115); HDL Cholesterol 36 mg/dL (>40); LDL Cholesterol Calculated 56 mg/dL (<100); Potassium 5.1 mmol/L (3.3-5.1); Sodium 141 mmol/L (135-145); Triglycerides 138 mg/dL (<150); Uric Acid 5.3 mg/dL (2.4-5.7)
[2024-03-03 12:21] LABS: Reflex LDLD? No
[2024-03-03 12:30] LABS: Creatinine Urine 85.19 mg/dL
[2024-03-03 12:42] LABS: Microalbum/Creatinine Ratio Ur 981.3 ug/mg cr (<30)
== END 2024-03-03 08:37 | disposition home or self-care (01) ==
LOC: HO.HHCL 08:36
PROVIDERS: Family Medicine; Student in an Organized Health Care Education/Training Program; Visit Provider Internal Medicine
DX: I82.409 Acute embolism and thrombosis of unspecified deep veins of unspecified lower extremity (principal); E87.5 Hyperkalemia; E11.65 Type 2 diabetes mellitus with hyperglycemia; E78.2 Mixed hyperlipidemia; E78.5 Hyperlipidemia, unspecified; M10.9 Gout, unspecified
CPT/HCPCS: 36415; 80053; 80061; 82043; 82570; 82607; 82746; 84550; 85025

== ENCOUNTER 2024-06-17 11:19 | Outpatient (REF) | payer OTHER, SELFPAY ==
--- OUTSIDE RECORDS SUMMARY | 2024-06-17 13:23 | XMS_ITS | Data Portability ---
Author Organization [employer] [place] [facility] [place] Address [address] [place] [address] Care Team Providers Care Rate Quoting Operator Name Role Phone HIM [facility] OTHER [facility] OTHER Assessment Encounter Date Assessment Date Assessment LastModified by Organization Details LastModified Time 07/18/2023 07/18/2023 As noted, we kamran schulz called to see this patient regarding concerns of right ankle swelling, concern for gouty arthritis Hx obtained with trade union official. 77 yo indonesian speaking F with h/o poliomyelitis (she ambulates with a cane) and prior gout of ankle p/w 2 days of atraumatic pain of left lumbar region radiating down all the way into the left ankle and foot. Pain is constant. No new numbness or weakness involving the LLE (has chronic left great toe numbness). No bowel or bladder issues. Not worsened with coughing. Worsened when she touches her back. She states this is different than prior gouty pain. No leg redness. No f/c. No urinary sxs. No cp or sob. No falls. H/O blood clot , used to be on eliquis but her doctor advised her to discontinue. She used tylenol which helped but she still has pain when she moves around. Evaluation in the field was performed by my cutter plastics rolls colleague, as noted above, I provided real-time direction and supervision for this visit. Vital reviewed. On exam she has point tenderness in the left lumbosacral paraspinal region; able to ambulate without a limp using the cane; no gross motor or sensory deficits of LEs; good ROM of hips and knees; no rashes; no ankle, foot or leg edema; tenderness to palpation of the left medial thigh and left calf; legs seems symmetrical in circumference; NVI; abd soft, nt Impression & Plan: Left low back pain Left thigh and calf pain Suspicion is for MSK pain given reproducibility with movement and palpation. This does not seem to be a joint related issue (no effusion, no swelling, no warmth or redness) or infection. There are no new neuro sxs. Patient does have a h/o prior DVT (anticoagulation was discontinued by her PCP), but the exam today seems less consistent with a DVT and I do not think the patient needs an escalation for a duplex. Messaging PCP and advising that if pain is not improving on OTC analgesics or if she develops worsening pain or leg swelling, she should be reseen for a duplex Primary care, consider obtaining a lower extremity duplex if pain persists despite use of OTC analgesics or to re-evaluated if she develops any neuro sxs ___ Disposition: We discussed the diagnostic uncertainty of home visits and the risk associated with this. In this case, the patient and I felt this to be an acceptable and reasonable amount of risk given the benefit of avoiding an ED visit. We discussed the need to seek care urgently/emergentl y in the setting of any new or worsening serious symptoms, particularly new weakness/numbness, bowel or bladder sxs, leg swelling or leg redness, worsening pain, chest pain or shortness of breath [email or web address] Not available 07/18/2023 15:15:29 01/07/2024 01/07/2024 As noted, we wer e called to see this patient regarding concerns of flu like symptoms. Evaluation in the field was performed by my cutter plastics rolls colleague, as noted above, I provided real-time direction and supervision for this visit. The evaluation revealed same. Impression: 78yo/f with multiple chronic medical conditions as above including asthma referred for 6 days of viral respiratory symptoms. Pt approx 5-6 days ago began to have symptoms of nasal congestion, rhinorrhea, went on to have cough intermittently productive of yellow/green sputum. Was concerned about the possibility of covid or flu. Seen and evaluated by medic in home, she is awake, alert, in no distress. Hypertensive to 170s, she has known hypertension. Lungs are CTAB at this time, no wheezing/crackles/ rhonchi. No LE edema. No respiratory distress or increaed work of breathing. Ambulating comfortably, tolerating PO. Denies any associated chest pain, dyspnea, back pain, abdominal pain, neurologic symptoms, or other ROS at this time. Plan: Patient evaluated by medic in home, she is awake, alert, well appearing at this time. Re-assuring exam. Covid/flu are negative. She has no wheezing on her lung exam. Breathing comfortably. No other associated symptoms of illness. Discussed with patient and family, impression is likely viral respiratory illness at this time. Low suspicion for an occult emergency medical condition such as ACS, PE, aortic dissection, AAA, sepsis. Advised to continue with her home medications including antihypertensives, recheck BP tomorrow, and followup with PMD in 24-48 hours for recheck. Given strict instructions to be evaluated immediately with any acute worsening or change which she understands. Primary care, consider CXR if symptoms persist. Disposition: We discussed the diagnostic uncertainty of home visits and the risk associated with this. In this case, the patient and I felt this to be an acceptable and reasonable amount of risk given the benefit of avoiding an ED visit. We discussed the need to seek care urgently/emergentl y in the setting of any new or worsening serious symptoms [email or web address] Not available 01/07/2024 14:42:25 Plan of Treatment Reminders Order Date Submit Date Provider Last Modified By Organization Details Last Modified Time Details Appointments None recorded. Lab rapid SARS CoV 2 Ag, QL [place], respiratory specimen 2023 024 [address], [phone] 4 14:37:28 rapid flu (A+B) 2023 [address], [phone] 4 14:37:28 Referral None recorded. Procedures None recorded. Surgeries None recorded. Imaging None recorded. Medication Orders ketorolac 30 mg/mL injection solution 2023 024 [email or web address] Not available 14:14:21 Patient TargetsNo targets recorded. Patient InstructionsNo instructions recorded. Reason for Referral None Reported. Results Created Date Observation Date Name Description Value Unit Range Abnormal Flag Note LastModifiedBy Organization Detail LastModifiedTime Result Notes None recorded. Medical Equipment None Reported. Allergies Allergen ID Allergen Name Allergen Category Reaction Reaction Severity Criticality Documentation Date Start Date Code Code System Note Provider Name and Address Organization Details Recorded Time 15319 Product containin g gadoliniu m and/or gadoliniu m compound (product) medicatio n Not available Not available Not available 01/07/2024 36913 3008 SNOMED Not Available [facility] - production 4 11:47:44 7592 Product containin g penicilli n (product) medicatio n Not available Not available Not available 12/18/2023 35695 8001 SNOMED Not Available [facility] - production 4 03:38:30 Medications Name Sig Start Date Stop Date Status Note LastModified by Organization Details LastModified Time albuterol sulfate 2.5 mg/3 mL (0.083 %) solution for nebulization INHALE 1 VIAL VIA NEBULIZER EVERY 4 HOURS NEEDED FOR WHEEZING OR SHORTNESS OF BREATH. MAXIMUM OF 4 TREATMENTS PER DAY active Not Available Not Available No t Available prednisone 20 mg tablet active Not Available Not Available Not Available aspirin 81 mg tablet,delay ed release active Not Available Not Available N ot Available diltiazem CD 300 mg capsule,exte nded release 24 hr active Not Available Not Available Not Available omeprazole 20 mg capsule,qasim yed release TAKE 1 CAPSULE BY MOUTH EVERY DAY NEEDED FOR HEARTBURN active Not Available Not Available No t Available montelukast 10 mg tablet active Not Available Not Available Not Available losartan 100 mg tablet active Not Available Not Available No t Available metformin ER 500 mg tablet,exten ded release 24 hr TAKE 2 TABLETS BY MOUTH WITH BREAKFAST AND EVENING MEAL active Not Available Not Available No t Available loratadine 10 mg tablet TAKE 1 TABLET BY MOUTH EVERY MORNING active Not Available Not Available No t Available cholecalcife rol (vitamin D3) 25 mcg (1,000 unit) capsule TAKE 1 CAPSULE BY MOUTH IN THE MORNING active Not Available Not Available Not Available rosuvastatin 10 mg tablet TAKE 1 TABLET BY MOUTH DAILY active Not Available Not Available Not Available Flovent HFA 110 mcg/actuatio n aerosol inhaler INHALE 1 PUFF BY MOUTH TWICE DAILY active Not Available Not Available No t Available FreeStyle Lite Strips USE TO TEST BLOOD SUGAR THREE TIMES DAILY active Not Available Not Available No t Available ketorolac 30 mg/mL injection solution Inject 15 mg. 2023 active Not Available Not Available Not Avai lable Farxiga 5 mg tablet active Not Available Not Available Not Available Arnuity Ellipta 100 mcg/actuatio n powder for inhalation INHALE 1 PUFF BY MOUTH EVERY DAY AT THE SAME TIME RINSE MOUTH AFTER USING. active Not Available Not Available No t Available Vitals Date Recorded Body weight Oxygen saturation Oxygen saturation in Arterial blood by Pulse oximetry Heart rate Body height Respiratory rate Body temperature Systolic blood pressure Diastolic blood pressure Provider Name and Address Organization Details Last Updated DateTime 4 94114.8 g 97 % 97 % 82 /min 154.94 cm 16 /min 98 [degF] 170 mm[Hg] 70 mm[Hg] Not Available [facility] production 13:54:46 Date Recorded Oxygen saturation Oxygen saturation in Arterial blood by Pulse oximetry Heart rate Respiratory rate Body temperature Systolic blood pressure Diastolic blood pressure Provider Name and Address Organization Details Last Updated DateTime 4 99 % 99 % 91 /min 18 /min 98.5 [degF] 170 mm[Hg] 80 mm[Hg] Not Available [facility] production 14:33:54 Social History None recorded. Functional Status None recorded. Mental Status None recorded. Family History Nothing Reported. Medical History No medical history recorded. Gynecological HistoryNo gynecological history recorded. Obstetrics History GPAL:G 0 P 0 0 0 0 Past Encounters Encounter ID Performer Location Encounter Start Date Encounter Closed Date Diagnosis/Indication Diagnosis SNOMED-CT Code Diagnosis ICD10 Code Diagnosis Note [id number] CHI LOJA MD [facility] [address] [place] [phone] 07/18/2023 13:54:38 07/19/2023 10:23:59 Low back pain 436082588 M54.50 Pain in le ft lower limb 480715161 M79.605 [id number] Rodolfo Louis MD [facility] [address] [place] [phone] 01/07/2024 14:33:51 01/07/2024 16:42:35 Viral upper respiratory tract infection 754388839 J06.9 Health Concerns Section Related Observation LastModified by Organization Detai ls LastModified Time None Recorded Concern Status LastModified by Organization Details LastModified Time None Recorded Advance Directives Directive None Recorded Payers Encounter Date Sequence Insurance Name Policy Number Policy Steel Covered Member ID Steel Member ID Guarantor Name 07/18/2023 1 [facility] - DOS ON OR AFTER 2022 - DUAL ELIGIBLE - LONG TERM OPTIONS AND ONE CARE (MEDICARE REPLACEMENT/ADV ANTAGE - HMO) Karen Ageedoagustín mayoTrevizo [id number] Karen Ageedoagustín mayoTrevizo 01/07/2024 1 [facility] - DOS ON OR AFTER 2022 - DUAL ELIGIBLE - LONG TERM OPTIONS AND ONE CARE (MEDICARE REPLACEMENT/ADV ANTAGE - HMO) Karen Wenceslao Trevizo [id number] Karen Ageedoagustín Trevizo Notes Date Note Type Note Provider Name and Address Organization Details Recorded Time 07/18/2023 text/html HPI: HX;Post poliomyelitis and history of Gout.Patient with concerns of gout in right ankle. Swelling only no pain or redness. ................... ................... ................... ................... ................... ................... ................... ........ [facility] Nurse Triage Notes (Vashti Mosqueda): Comments: CRC RN DID NOT NEED FURTHER INFO ................... ................... ................... ................... ................... ................... ................... ........ Family Service Caseworker Note From Quentin Hays: [facility] visit for female patient with left leg pain. Pt presents conscious and alert ambulating with walker in home. Pt Slovenian speaking only and trade union official services will utilized. Pt reports 2 days of pain, first localized in left ankle, and then travelling up through left calf, inner thigh, to lower back on that side. Pt denies injury or strain. No external signs of injury. No swelling or edema noted. Tenderness noted through entire left calf, inner thigh, and lower back. Muscles felt tense and inflamed in that area. V/S taken. Pt afebrile. Consulted with [facility] Dr. Loja who ordered 15 mg IM toradol given on scene. Reviewed red flags for ED. Pt encouraged to follow up with PCP in 2-3 days if pain persists. Pt instructed she can continue to take tylenol in addition 650 mg q 6 hours. Patient education provided. ................... ................... ................... ................... ................... ................... ................... ........ Disposition: Fulfilled CHI LOJA MD [address] [place] [address],[address], [place], [phone] [employer] 07/18/2023 15:15:58 01/07/2024 text/html [facility] Nurse Triage Notes (Tawana Lambert): Reason For Request: Pt reporting congestion, sore throat, chest pressure due to lots of coughing>unsure if covid or flu>DENIES fever/chillsMbr is on Eliquis, blockage in left leg (for 6 months) Chief Complaints: Common cold symptoms PMH: Hypertension, Diabetes Mellitus Type 2, Asthma, Deep Vein Thrombosis Comments: Patient calling in to place a referral, identified via name and . Patient with a 6 day history of cold symptoms. Patient has c/o chest congestion, productive cough with green phlegm, and shortness of breath with the coughing spells. She denies chest pain, no fever/chills, no n/v/d, no headaches or dizziness. She has been using her albuterol neb with some relief. She would like to be evaluated. Family Service Caseworker Organization Information for [facility] Business Legal Name: [employer]? Address: [address] [place] [id number], [employer]: Mark MAR No.: [id number] Family Service Caseworker POC Test Results from [facility] Rapid strep test (14:31:01) Strep: - Rapid COVID antigen (14:31:08) COVID: - Rapid influenza antigen (14:31:17) Flu: - ................... ................... ................... ................... ................... ................... ................... ........ Family Service Caseworker Note From [facility]: Dispatched to stated address to eval 78yo female with flu like symptoms. Pt states she has been congested for 6 days and has concerns she could have COVID. Pt denies any fevers, h/a, dizziness, or cp. Pt states she had mild sore throat 3 days ago that has subsided. Pt agrees to COVID/Flu/Strep test. Consulted [facility] with findings. Informed pt of red flags and to consult further medical attention when present. Pt advised to continue managing symptoms. Pt found walking and speaking in full clear sentences with no signs of distress. AO and GCS-15. PERRL Sin P/W?D. Airway open and lung sounds clear in all chao. -fever. ABD soft nontender. Rest of exam unremarkable. ................... ................... ................... ................... ................... ................... ................... ........ [facility] Consulted: Rodolfo Louis ................... ................... ................... ................... ................... ................... ................... ........ Disposition: Fulfilled Rodolfo Louis MD [address] [facility],[address] [facility], [place], [address], [employer] 01/07/2024 15:12:23 OBGyn Episode No OBEpisode recorded.
[2024-06-17 13:41] LABS: Alanine Aminotransferase 13 U/L (0-31); Albumin Level 3.9 g/dL (3.5-5.0); Alkaline Phosphatase 152 U/L (39-117); Anion Gap 14 (12-20); Aspartate Amino Transferase 24 U/L (5-31); Bilirubin Total 0.3 mg/dL (0.0-1.0); Blood Urea Nitrogen 23 mg/dL (9-16); Calcium 9.8 mg/dL (8.4-10.2); Carbon Dioxide 23 mmol/L (22-29); Chloride 107 mmol/L (96-108); Estimated Glomerular Filt Rate > 60; Glucose Random 133 mg/dL (60-115); Potassium 4.5 mmol/L (3.3-5.1); Sodium 139 mmol/L (135-145); Total Protein 7.8 g/dL (6.5-8.0)
[2024-06-17 13:58] LABS: Creatinine Urine 36.36 mg/dL; Microalbum/Creatinine Ratio Ur 654.5 ug/mg cr (<30)
== END 2024-06-17 11:20 | disposition home or self-care (01) ==
LOC: HO.HHCL 11:19
PROVIDERS: Visit Provider Family Medicine
DX: E78.5 Hyperlipidemia, unspecified (principal); E11.65 Type 2 diabetes mellitus with hyperglycemia
CPT/HCPCS: 36415; 80053; 82043; 82570

== ENCOUNTER 2024-07-24 10:12 | Outpatient (REF) | payer OTHER, SELFPAY ==
--- NOTE | ~2024-07-24 | XR_ITS ---
EXAMINATION: XR KNEE 4 OR MORE VIEWS LEFT HISTORY: PAIN COMPARISON: There are no prior studies available for comparison. FINDINGS: Four views of the left knee are submitted. Osseous mineralization is normal. There is no fracture or dislocation. The joint spaces are preserved. A curvilinear calcification adjacent to the medial femoral condyle is likely ligamentous in nature. There is no joint effusion. XR/XR knee LT 4V IMPRESSION: Probable MCL calcification. Otherwise unremarkable examination of the left knee. Electronically signed by: Nicho Rodriguez MD 07/24/2024 10:54 AM EDT
--- OUTSIDE RECORDS SUMMARY | 2024-07-24 11:56 | XMS_ITS | Encounter Summary ---
Author Organization [employer] Address [address] [facility] [address] [place] [address] Care Team Providers Care Bin Worker Name Role Phone Erum Quinones MD Primary Care Provider [phone] Encounter Details Date Type Department Care Team ([facility] st Contact Info) Description 01/29/2023 Orders Only [facility] [address] [place], [place] [phone] Erum Quinones MD [address] [place], [place] [phone] Type 2 diabetes mellitus with hyperglycemia, without long-term current use of insulin ([facility]) (Primary Dx); Hypertension, unspecified type; Dyslipidemia; Other osteoporosis without current pathological fracture; Gout, unspecified cause, unspecified chronicity, unspecified site Social History Tobacco Use Types Packs/Day Years Used Date Smoking Tobacco: Never Passive Smoke Exposure: Never Smokeless Tobacco: Never Depression Answer Date Recorded Patient Health Questionnaire-9 Score 0 11/16/2022 Housing Stability Answer Date Recorded What is your housing situation today? I have ronaldo lan 12/10/[address] you li ve. Do you have problems with any of the following? None of the above 12/10/2022 Food Insecurity Answer Date Recorded Within the past 12 months, y ou worried that your food would run out before you got money to buy more: Never True 12/10/2022 Within the past 12 months,th e food you bought just didn't last and you didn't have enough money to get more: Never True Transportation Answer Date Recorded In the past 12 months, has l ack of transportation kept you from medical appts, meetings, work or from getting things needed for daily living? No 12/10/2022 Utilities Answer Date Recorded In the past 12 months, has t he electric, gas, oil or water company threatened to shut off services in your home? No 12/10/2022 Depression Answer Date Recorded Patient Health Questionnaire-2 Score 0 11/16/2022 Comments Unknown Sex and Gender Information Value Date Recorded Sex Assigned at Female 12/19/2021 10:17 AM EDT Legal Sex Female 10:17 AM EDT Gender Identity Female 12/19/2021 10:17 AM EDT Sexual Orientation Straight 12/19/2021 10 :17 AM EDT documented as of this encounter Plan of Treatment Upcoming Encounters Date Type Department Care Team (Late st Contact Info) Description 09/17/2024 11:00 AM EDT Office Visit [facility] [address] [place] [address] [phone] Erum Quinones MD [address] [place], [place] [phone] Scheduled Orders Name Type Priority Associated Diagnoses Orde r Schedule Vitamin D 25 hydroxy Lab Routine Other osteoporosis without current pathological fracture Expected: 01/29/2023 (Approximate), Expires: 01/30/2024 documented as of this encounter Procedures Procedure Name Priority Date/Time Associated Diagnosis Comments ALBUMIN, RANDOM URINE W/CREATININE Routine 02/02/2023 10:37 AM EST Type 2 diabetes mellitus with hyperglycemia, without long-term current use of insulin ([facility]) VITAMIN B12/FOLATE, SERUM PANEL Routine 02/02/2023 10:34 AM EST Type 2 diabetes mellitus with hyperglycemia, without long-term current use of insulin ([facility]) TSH W/REFLEX TO FT4 Routine 02/02/2023 1 0:34 AM EST Hypertension, unspecified type LIPID PANEL WITH REFLEX TO DIRECT LDL Routine 02/02/2023 10:34 AM EST Type 2 diabetes mellitus with hyperglycemia, without long-term current use of insulin ([facility]) Dyslipidemia URIC ACID Routine 02/02/2023 10:34 AM EST Gout, unspecified cause, unspecified chronicity, unspecified site PTH, INTACT WITHOUT CALCIUM Routine 02/02/2023 10:34 AM EST Other osteoporosis without current pathological fracture COMPREHENSIVE METABOLIC PANEL Routine 02/02/2023 10:34 AM EST Type 2 diabetes mellitus with hyperglycemia, without long-term current use of insulin ([facility]) documented in this encounter Results * (ABNORMAL) Albumin, Random Urine W/Creatinine (02/02/2023 10:37 AM EST) Creatinine, Urine 81.69 mg/dL [facility] Microalbumin Urine 641.0 mg/L [facility] Microalbum Creatinine Ratio Ur 784.6(H) <30 ug/mg cr [facility] Comment:Albumin/Creatinine R atio Reference Ranges: Normal: < 30 ug/mg creatinine Microalbuminuria: 30 - 300 ug/mg creatinineClinical Albuminuria: > 300 ug/mg creatinine Urine 02/02/2023 10:3 7 AM EST 02/02/2023 11:11 AM EST us Erum Quinones MD LAB URINE ORDERABLES Final Resul t Performing Organization Address [facility]/ZIP Co de Phone Number [facility] [address] [place] [phone] * TSH W/Reflex to FT4 (02/02/2023 10:34 AM EST) TSH reflex Free T4 1.51 0.32 - 4.0 uIU/mL [facility] Blood 02/02/2023 10:3 4 AM EST 02/02/2023 11:13 AM EST us Erum Quinones MD LAB BLOOD ORDERABLES Final Resul t Performing Organization Address City/[facility]/ZIP Co de Phone Number [facility] [address] [place] [phone] * (ABNORMAL) Lipid Panel with Reflex to Direct LDL (02/02/2023 10:34 AM EST) Triglycerides 128 <150 mg/dL [facility] Comment:Desirable Triglyceri de: less than 150 mg/dLBorderline High Triglyceride 150-199 mg/dLHigh Triglyceride: 200-499 mg/dLVery High Triglyceride: greater than or equal to 5OO mg/dL Cholesterol 248(H) <200 mg/dL [facility] Comment:Desirable Cholestero l: less than 200 mg/dLBorderline High Cholesterol: 200-239 mg/dLHigh Cholesterol: greater than 239 mg/dL LDL Cholesterol Calculated 177(H) <100 mg/dL [facility] Comment:Desirable LDL: less than 100 mg/dLNear Optimal/Above Optimal LDL: 110- 129 mg/dLBorderline High LDL: 130-159 mg/dLHigh LDL: 160-189 mg/dLVery High LDL: greater than or equal to 190 mg/dL HDL Cholesterol 46 >40 mg/dL [facility] Comment:Desirable HDL: great er than 40 mg/dL Note: This HDL assay may give artificially low results in patients with liver disease. Blood 02/02/2023 10:3 4 AM EST 02/02/2023 11:13 AM EST us Erum Quinones MD LAB BLOOD ORDERABLES Final Resul t [facility] [address] [place] [phone] * (ABNORMAL) Comprehensive Metabolic Panel (02/02/2023 10:34 AM EST) Sodium 141 135 - 145 mmol/L [facility] Potassium 4.1 3.3 - 5.1 mmol/L [facility] Chloride 105 96 - 108 mmol/L [facility] Carbon Dioxide 24 22 - 29 mmol/L [facility] Anion Gap 16 12 - 20 [facility] Urea Nitrogen (BUN) 27(H) 9 - 16 mg/dL [facility] Creatinine, Serum 0.73 0.5 - 1.4 mg/dL [facility] Estimated Glomerular Filt Rate >60 [facility] Comment:NOTE: For -Am erican individuals, multiply the result by 1.210.Chronic Kidney Disease: Estimated GFR < 60 mL/min/1.59l9Mdkttd Kidney Disease: Estimated GFR < 15 mL/min/1.73m2 Glucose 185(H) 60 - 115 mg/dL [facility] Calcium 9.9 8.4 - 10.2 mg/dL [facility] Bilirubin, Total 0.4 0.0 - 1.0 mg/dL [facility] Aspartate Amino Transferase 18 5 - 31 U/L [facility] Alanine Aminotransferase 17 0 - 31 U/L [facility] Total Protein 8.2(H) 6.5 - 8.0 g/dL [facility] Albumin Level 4.0 3.5 - 5.0 g/dL [facility] Alkaline Phosphatase 144(H) 39 - 117 U/L [facility] Blood Venous blood specimen / Unknown 02/02/2023 10:34 AM EST 02/02/2023 11:13 AM EST us Erum Quinones MD LAB BLOOD ORDERABLES Final Resul t [facility] [address] [place] [phone] * (ABNORMAL) Vitamin B12/Folate, Serum Panel (02/02/2023 10:34 AM EST) Vitamin B12 1,053(H) 200 - 900 pg/mL [facility] Comment:NORMAL 200-900 PG/ML INDETERMINATE 160-199 PG/ML DEFICIENT < 160 PG/ML Folate 8.2 > or = 4.0 ng/mL [facility] Comment:Reference Values:> o r = 4.0 ng/mL< 4.0 ng/mL suggests folate deficiency Methotrexate, aminopterin and folinic acid(leucovorin) are chemotherapeutic agents whose molecularstructures are similar to folate; therefore, the Architectfolate assay cannot be used for patients using these drugs. 02/02/2023 10:3 4 AM EST 02/02/2023 11:13 AM EST Erum Quinones MD LAB BLOOD ORDERABLES Final Resul t Performing Organization Address [facility] Co de Phone Number [facility] [address] [place] [phone] * PTH, Intact Without Calcium (02/02/2023 10:34 AM EST) Parathyroid Hormone, Intact 72.1 8.7 - 77.1 pg/mL [facility] Blood Venous blood specimen / Unknown 02/02/2023 10:34 AM EST 02/02/2023 11:13 AM EST Erum Quinones MD LAB BLOOD ORDERABLES Final Resul t Performing Organization Address [facility] Co de Phone Number [facility] [address] [place] [phone] * (ABNORMAL) Uric acid (02/02/2023 10:34 AM EST) Uric Acid 6.6(H) 2.4 - 5.7 mg/dL [facility] Blood Venous blood specimen / Unknown 02/02/2023 10:34 AM EST 02/02/2023 11:13 AM EST Erum Quinones MD LAB BLOOD ORDERABLES Final Resul t Performing Organization Address [facility] Co de Phone Number [facility] [address] [place] [phone] documented in this encounter Visit Diagnoses Diagnosis Type 2 diabetes mellitus with hyperglycemia, without long-term current use of insulin ([facility])- Primary Hypertension, unspecified type Dyslipidemia Other and unspecified hyperlipidemia Other osteoporosis without current pathological fracture Gout, unspecified cause, unspecified chronicity, unspecified site documented in this encounter Additional Health Concerns Assessment Noted Time PHQ-9 Depression Total Score: 0 11/17/19 23 10:44 AM EDT documented as of this encounter Care Teams Bin Worker Relationship Specialty Start Date End Date Erum Quinones MD [address] [place] [phone] PCP - General Family Medicine 02/19/18 documented as of this encounter
== END 2024-07-24 10:13 | disposition home or self-care (01) ==
LOC: HO.HHCX 10:12
PROVIDERS: Visit Provider Family Medicine
DX: M25.562 Pain in left knee (principal)
CPT/HCPCS: 73564

== ENCOUNTER → 2024-07-24 10:17 | Outpatient (BNV) | payer OTHER, SELFPAY | PROVIDERS: Visit Provider Radiology Diagnostic Radiology | DX: M25.562 Pain in left knee (principal) | CPT/HCPCS: 73564 ==

== ENCOUNTER 2024-07-27 07:54 | Emergency (ER) | payer OTHER, SELFPAY ==
--- NOTE | ~2024-07-27 | XR_ITS ---
CLINICAL HISTORY: pain, decrased ROM 4 view left knee Comparison: CR/SR - XR KNEE LT 4V - 07/24/24 10:40 EDT Findings: Bones intact. No dislocations. No fracture deformity. Joint spaces are preserved. Minimal degenerative change. No joint effusion. No radiopaque foreign body. Unchanged coarse calcification just medial to the medial left femoral condyle in the region of the medial collateral ligament. Soft tissue swelling about the medial aspect of the knee. IMPRESSION: 1. Medial soft tissue swelling. 2. Large coarse calcification in the region of the superior portion of the MCL, unchanged from prior. This could be calcification related to prior injury. This document has been electronically signed by: Nikos Mejia MD on 07/27/2024 17:37:05
[2024-07-27 07:57] VITALS: BP 180/83; PULSE 84; RESP 18; TEMP 36.6; O2SAT 96; BMI 27.8
--- NOTE | 2024-07-27 09:07 | PC.NURSE ---
swollen left knee. no redness or warmth. states she's had increasing pain over last 3 weeks. Barely able to bear weight needs full assist to transfer to toilet and bed.
--- OUTSIDE RECORDS SUMMARY | 2024-07-27 09:13 | XMS_ITS | Continuity of Care Document ---
Author Name Rui Hammond Address [address] [place] [phone] Organization Unknown Address [address] [place] [address] Medications No known medications Problems No known problems
--- NOTE | 2024-07-27 10:08 | ED.LOWEXIN ---
HPI - Extremity Injury (Lower) General Chief Complaint: Extremity Injury, Lower Stated Complaint: knee pain Time Seen by Provider: 07/27/24 09:35 Source: patient, family, RN notes reviewed and prior authorization technician Mode of arrival: ambulatory Limitations: language barrier History of Present Illness ED Provider: Amrita Myers PA-C HPI Narrative: This is a 78-year-old Liberian-speaking female, with a past medical history of hypertension, hyperlipidemia, aortic stenosis, DVT on Eliquis, who presents emergency department with complaints of left knee pain the last 3 weeks. patient reports that several weeks ago she was at her daughter's house which required her to take a large step upwards, and she felt like she was using a lot of her strength in her left leg. She states that since then she has had pain in her left knee. She was seen at the [facility] walk-in facility where they had an x-ray performed and she was told that she had calcification her left knee. She was instructed to follow-up with the orthopedic team however states that they are unable to see her until September. She has been taking Tylenol for her symptoms, last dose was early this morning which has provided her with minimal relief. She lives at home alone, uses a walker to get around. She states that she does have difficulty with activities of daily living secondary to her pain. She denies any fevers, chills, chest pain, shortness of breath, abdominal pain, nausea, vomiting or diarrhea. No other complaints or concerns at this time. MD complaint: knee injury Onset (ago): week(s) Place: home Severity: moderate Relieving factors: immobilization and rest Exacerbating factors: weight bearing, movement and palpation Associated symptoms: swelling and able to partially bear weight Other symptoms: none Related Data Home Medications ?Medication ?Instructions ?Recorded ?Confirmed cholecalciferol (vitamin D3) 25 25 mcg PO DAILY 11/09/21 07/27/24 mcg (1,000 unit) capsule diazepam 5 mg tablet 5 mg PO DAILY PRN Anxiety 11/09/21 07/27/24 diltiazem HCl 300 mg 300 mg PO DAILY 11/09/21 07/27/24 capsule,extended release 24 hr loratadine 10 mg tablet 10 mg PO DAILY 11/09/21 07/27/24 metformin 500 mg tablet,extended 1,000 mg PO BID 11/09/21 07/27/24 release 24 hr omeprazole 20 mg capsule,delayed 20 mg PO DAILY PRN Heartburn 11/09/21 07/27/24 release acetaminophen 500 mg tablet 1,000 mg PO BID PRN Pain 07/27/24 07/27/24 albuterol sulfate 2.5 mg/3 mL 2.5 mg inhalation Q4-6H PRN 07/27/24 07/27/24 (0.083 %) solution for nebulization Shortness Of Breath Or Wheezing apixaban 5 mg tablet 5 mg PO BID 07/27/24 07/27/24 diclofenac sodium 1 % topical gel 2 g topical QID PRN Pain 07/27/24 07/27/24 Previous Rx's ?Medication ?Instructions ?Recorded losartan 100 mg tablet 100 mg PO DAILY #90 tabs 06/08/20 rosuvastatin 10 mg tablet (Crestor) 10 mg PO DAILY #30 tabs 02/05/23 Allergies Allergy/AdvReac Type Severity Reaction Status Date / Time penicillin V Allergy Unknown rash Verified 07/27/24 07:59 Penicillins [PENICILLINS] Allergy Unknown RASH Verified 07/27/24 07:59 Review of Systems Review of Systems: Yes all other systems are reviewed and are negative Constitutional: Constitutional: Reports as per HPI Eyes: Eyes: Reports as per HPI, Denies change in vision and Denies eye discharge ENT: Reports system reviewed and no additional complaints, except as documented, Reports as per HPI, Reports Normal hearing present and Denies facial pain Cardiovascular: Cardiovascular: Reports as per HPI and Denies chest pain Respiratory: Respiratory: Reports as per HPI and Denies cough Gastrointestinal: Gastrointestinal: Reports as per HPI, Reports no additional gastrointestinal complaints, Denies abdominal pain, Denies diarrhea, Denies nausea and Denies vomiting Genitourinary: Genitourinary: Reports no additional female genitourinary complaints and Reports as per HPI Musculoskeletal: Musculoskeletal: Reports no additional musculoskeletal complaints and Reports as per HPI Integumentary/Breasts: Skin/Breast: Reports system reviewed and no additional complaints, except as docu, Reports as per HPI, Reports erythema, Denies rash and Denies wounds Neurologic: Reports Normal hearing present Psychiatric: Psychiatric: Reports no additional psychiatric complaints and Reports as per HPI Endocrine: Endocrine: Reports no additional endocrine complaints and Reports as per HPI Hematologic/Lymphatic: Hematologic/Lymphatic: Reports no additional hematologic/lymphatic complaints and Reports as per HPI Allergic/Immunologic: Allergic/Immunologic: Reports no additional allergic/immunologic complaints and Reports as per HPI [facility] Past Medical History Medical History Left leg DVT Hyperlipidemia HTN (hypertension) Surgical History History of section Family History Family History Father No problems noted. Mother No problems noted. Social History Social History Household Members: Other Patient Tobacco Use Status: Never used Tobacco Advance Directives Date on File: 07/29/24 Current occupational status: retired Physical Exam Vital Signs: Vital Signs: Last Vital Signs Temp 98.2 F 07/29/24 09:22 Pulse 70 07/29/24 09:22 Resp 17 07/29/24 09:22 BP 123/56 L 07/29/24 09:22 Pulse Ox 95 07/29/24 09:22 O2 Del Method Room Air 07/29/24 09:22 BMI result Body Mass Index 27.8 Const: General: cooperative, comfortable and no acute distress Orientation/consciousness: patient oriented x3 Limitations: no limitations HEENT: Head: Yes normal to inspection, Yes normocephalic and Yes atraumatic Ears: hearing grossly normal bilaterally General nose exam: Normal external nose present Face and sinus: Yes normal facial exam Mouth: Normal oral and palatal mucosa present, oropharynx normal and moist mucous membranes Throat: Yes posterior oropharynx normal Eyes: General: appearance normal, both eyes and all related structures Eyelids: Yes eyelids normal Conjunctivae: conjunctivae normal Sclerae: sclerae normal Pupils: Equal, round and reactive pupils present EOM: EOMs intact bilaterally Neck: Neck: Yes normal visual inspection, Yes full ROM and Yes no lymphadenopathy Lymphatic: no lymphadenopathy noted Chest: Chest palpation & inspection: normal inspection of the chest Resp: Effort & Inspection: normal respiratory effort and able to speak in complete sentences Auscultation: clear to auscultation bilaterally Cardio: Rate: regular rate Rhythm: regular rhythm Heart sounds: S1 normal heart sound present and S2 normal heart sound present GI: Inspection: Yes normal to inspection Skin: General skin exam: no rashes or lesions noted Trauma: no lacerations or abrasions Wounds: no wounds Neuro: General: patient oriented x3 and moves all extremities Cranial nerves: Yes Equal, round and reactive pupils present and Yes Normal hearing present Extrem: Other: Left knee with no obvious bony deformity. She does have moderate edema noted to the lateral aspect of her left knee, point tenderness palpation along the medial joint line. Able to flex and extend, decreased range of motion secondary to pain. No deformity noted at the quadriceps tendon insertion site. no overlying erythema or warmth. General: Yes normal to inspection Right upper extremity: normal to inspection Left upper extremity: normal to inspection Left lower extremity: normal to inspection Course Reevaluation(s) Reevaluation #1: Dr. Diaz: I was asked by the physician assistant surveyor to see the patient. The patient is an 78-year-old woman who was here with left knee pain. She apparently strained her knee about 3 weeks ago and has had worsening pain ever since. At this point she can not bear weight on the knee. There has been no fever or other infectious symptoms. I felt the knee looked somewhat swollen but x-ray was read as showing no signs of an effusion. I performed an informal bedside ultrasound of the knee and did not feel there was any significant fluid collection in the knee joint. I can put the knee through about 30 degrees range of motion. My suspicion therefore for septic arthritis is quite low. I think this is probably a strain type injury that has been getting worse in her relatively deconditioned 78-year-old woman. The patient will be kept in the emergency room for evaluation by case management and physical therapy. 02:22 AM 07/28/2024. Reevaluation #2: Physician observation continued, patient evaluated by PT with recommendation of STR. CM following for disposition. Reevaluation #3: Time: 9:00AM Date: 07/29/24 Provider: OSIRIS Priest Physician observation ended at 9:00AM. Patient to be placed at a rehab facility - [facility] for STR. Medications Administered Discontinued Medications Generic Name Dose Route Start Last Admin Trade Name Freq PRN Reason Stop Dose Admin Acetaminophen 975 mg 07/27/24 14:43 07/28/24 11:41 Acetaminophen 325 Mg Tablet PO 975 mg BID PRN Administration Pain Apixaban 5 mg 07/27/24 21:00 07/29/24 08:09 Apixaban 5 Mg Tablet PO 5 mg BID BRINA Administration Atorvastatin Calcium 40 mg 07/28/24 09:00 07/29/24 08:09 Atorvastatin Calcium 40 Mg Tablet PO 40 mg DAILY BRINA Administration Diltiazem HCl 300 mg 07/28/24 09:00 07/29/24 08:10 Diltiazem Hcl Cd 300 Mg Cap.Er.24h PO 300 mg DAILY BRINA Administration Protocol Loratadine 10 mg 07/28/24 09:00 07/29/24 08:09 Loratadine 10 Mg Tablet PO 10 mg DAILY BRINA Administration Losartan Potassium 100 mg 07/28/24 09:00 07/29/24 08:09 Losartan Potassium 50 Mg Tablet PO 100 mg DAILY BRINA Administration Protocol Metformin HCl 1,000 mg 07/27/24 21:00 07/29/24 08:10 Metformin Hcl Er 500 Mg Tab.Er.24h PO 1,000 mg BID BRINA Administration Omeprazole 20 mg 07/27/24 14:21 07/29/24 05:16 Omeprazole 20 Mg Capsule.Dr PO 20 mg DAILY@0630 BRINA Administration Tramadol HCl 50 mg 07/28/24 15:04 07/28/24 15:23 Tramadol Hcl 50 Mg Tablet PO 07/28/24 15:05 50 mg ONCE ONE Administration Tramadol HCl 50 mg 07/28/24 22:53 07/29/24 05:17 Tramadol Hcl 50 Mg Tablet PO 50 mg TID PRN Administration Pain, Moderate(Pain Scale 4-6) Vitamin D 25 mcg 07/28/24 09:00 07/29/24 08:09 Cholecalciferol (Vitamin D3) 25 Mcg Tablet PO 25 mcg DAILY BRINA Administration Medical Decision Making Medical Decision Making MDM Narrative: This is a 78-year-old female who presents emergency department for evaluation of left knee pain for the last 3 weeks. On arrival, blood pressure elevated at 180/83 however upon my evaluation which was performed at 10:18 a.m. due to prolonged wait times, her blood pressure has since improved to 130 9/65. She has no chest pain or shortness of breath. She has had knee pain for the last 3 weeks secondary to stepping upwards. she states that she has had worsening pain. No history of similar symptoms in the past. No calf pain. She is compliant on her pain medication. No fevers, chills, chest pain or shortness for breath. X-rays were performed outpatient revealing probable MCL calcification otherwise unremarkable. Discussed this findings with patient. She is here with her daughter. I obtained basic labs, she does have a slight elevation white blood cell count with no left shift, ESR elevated at 75, CRP elevated at 3.5, no significant electrolyte derangement. Urine does not appear to be infected, she is asymptomatic. Given diminished range of motion, had patient be seen by my attending physician, Dr. Diaz. She has no erythema noted to the left knee therefore septic joint is not high on my differential however we will repeat x-rays. She is on Eliquis and she is also a diabetic therefore we had considered performing a joint aspiration however will await x-ray for further evaluation. x-ray returns, there is only soft tissue swelling noted on the medial aspect, with a this region. Dr Diaz assessed patient, bedside ultrasound revealing no joint effusion appreciated, given recent injury, as well as pain, patient's overall clinical workup today is consistent with a knee strain. Extensive conversation was performed With family at bedside, given patient lives alone, uses a walker at home, and concerned for gait safety given left knee pain, patient should be evaluated by Physical therapy and case management. They are agreeable for this evaluation. They are understanding that given that this is a weekend she may need to stay overnight to be evaluated. They are agreeable. We will continue to closely monitor pending case management and PT eval. Patient placed in physician observation pending these evaluations. Differential Diagnosis Differential Diagnoses: The differential diagnosis associated with the presentation includes Sprain, strain, fracture, contusion, internal derangement of the knee ligaments. Lab Data MDM Lab Attestation statement: I reviewed the patient's lab results. 07/27/24 11:52 07/27/24 11:52 Labs: Lab Results 07/27/24 07/27/24 07/28/24 Range/Units 11:52 18:28 07:11 WBC 11.3 H (4.8-10.8) X10*3/uL RBC 4.29 (4.20-5.50) X10*6/uL Hgb 12.4 (12.0-16.0) g/dl Hct 36.7 L (37.0-47.0) % MCV 85.5 (80.0-98.0) fL MCH 28.9 (27.0-33.0) pg MCHC 33.8 (31.0-35.0) g/dl RDW 13.4 (11.0-16.0) % Plt Count 211 (160-400) X10*3/uL MPV 10.3 (9.4-12.3) fL Immature Gran % (Auto) 0.4 (0.0-0.4) % Neut % (Auto) 64.8 (45-73) % Lymph % (Auto) 25.1 (20-40) % [place] % (Auto) 8.5 (2-11) % Eos % (Auto) 0.6 (0-4) % Baso % (Auto) 0.6 (0-2) % Lymph # (Auto) 2.8 (1.2-4.9) X10*3/uL [place] # (Auto) 1.0 (0.1-1.2) X10*3/uL Eos # (Auto) 0.1 (0.0-0.4) X10*3/uL Baso # (Auto) 0.1 (0.0-0.2) X10*3/uL Abs Immat Gran (auto) 0.04 H (0.00-0.03) X10*3/uL Absolute Neuts (auto) 7.3 (2.0-8.3) x10*3/uL Absolute Nucleated RBC 0.000 (0.0-0.012) X10*3/uL Nucleated RBC % (auto) 0.0 (0.0-0.2) /100WBC ESR 75 H (0-20) MM/HR Sodium 140 (135-145) mmol/L Potassium 5.1 (3.3-5.1) mmol/L Chloride 106 (96-108) mmol/L Carbon Dioxide 26 (22-29) mmol/L Anion Gap 13 (12-20) BUN 21 H (9-16) mg/dL Creatinine 0.87 (0.5-1.4) mg/dL Estim Creat Clear Calc 45.1 Estimated GFR > 60 POC Glucose 206 H 172 H (60-115) mg/dL Random Glucose 203 H (60-115) mg/dL Uric Acid 4.8 (2.4-5.7) mg/dL Calcium 10.1 (8.4-10.2) mg/dL Total Bilirubin 0.4 (0.0-1.0) mg/dL AST 20 (5-31) U/L ALT 13 (0-31) U/L Alkaline Phosphatase 154 H (39-117) U/L C-Reactive Protein 3.50 H (< or = 0.50) mg/dL Total Protein 8.0 (6.5-8.0) g/dL Albumin 4.0 (3.5-5.0) g/dL Urine Color Yellow Urine Appearance Clear Urine pH 5.5 (5.0-9.0) Ur Specific Stevens 1.015 (1.005-1.025) Urine Protein 100 (2+) H (Neg-Trace) mg/dL Urine Glucose (UA) 500 H (Negative) mg/dL Urine Ketones Negative (Negative) mg/dL Urine Blood Negative (Negative) Urine Nitrite Negative (Negative) Ur Leukocyte Esterase Negative (Negative) Urine RBC 0-2 (0-2) /HPF Urine WBC 0-5 (0-5) /HPF Ur Squamous Epith Cells 3-5 (0-2) /HPF Urine Bacteria Trace (None Seen) Hyaline Casts 0-2 (0-2) /LPF Influenza Type A (PCR) (Negative) Influenza Type B (PCR) (Negative) RSV RNA Qual (PCR) (Negative) SARS-CoV-2 RNA (RT-PCR) (Negative) 07/28/24 07/28/24 07/28/24 Range/Units 09:09 11:22 16:49 WBC (4.8-10.8) X10*3/uL RBC (4.20-5.50) X10*6/uL Hgb (12.0-16.0) g/dl Hct (37.0-47.0) % MCV (80.0-98.0) fL MCH (27.0-33.0) pg MCHC (31.0-35.0) g/dl RDW (11.0-16.0) % Plt Count (160-400) X10*3/uL MPV (9.4-12.3) fL Immature Gran % (Auto) (0.0-0.4) % Neut % (Auto) (45-73) % Lymph % (Auto) (20-40) % [place] % (Auto) (2-11) % Eos % (Auto) (0-4) % Baso % (Auto) (0-2) % Lymph # (Auto) (1.2-4.9) X10*3/uL [place] # (Auto) (0.1-1.2) X10*3/uL Eos # (Auto) (0.0-0.4) X10*3/uL Baso # (Auto) (0.0-0.2) X10*3/uL Abs Immat Gran (auto) (0.00-0.03) X10*3/uL Absolute Neuts (auto) (2.0-8.3) x10*3/uL Absolute Nucleated RBC (0.0-0.012) X10*3/uL Nucleated RBC % (auto) (0.0-0.2) /100WBC ESR (0-20) MM/HR Sodium (135-145) mmol/L Potassium (3.3-5.1) mmol/L Chloride (96-108) mmol/L Carbon Dioxide (22-29) mmol/L Anion Gap (12-20) BUN (9-16) mg/dL Creatinine (0.5-1.4) mg/dL Estim Creat Clear Calc Estimated GFR POC Glucose 178 H 143 H (60-115) mg/dL Random Glucose (60-115) mg/dL Uric Acid (2.4-5.7) mg/dL Calcium (8.4-10.2) mg/dL Total Bilirubin (0.0-1.0) mg/dL AST (5-31) U/L ALT (0-31) U/L Alkaline Phosphatase (39-117) U/L C-Reactive Protein (< or = 0.50) mg/dL Total Protein (6.5-8.0) g/dL Albumin (3.5-5.0) g/dL Urine Color Urine Appearance Urine pH (5.0-9.0) Ur Specific Stevens (1.005-1.025) Urine Protein (Neg-Trace) mg/dL Urine Glucose (UA) (Negative) mg/dL Urine Ketones (Negative) mg/dL Urine Blood (Negative) Urine Nitrite (Negative) Ur Leukocyte Esterase (Negative) Urine RBC (0-2) /HPF Urine WBC (0-5) /HPF Ur Squamous Epith Cells (0-2) /HPF Urine Bacteria (None Seen) Hyaline Casts (0-2) /LPF Influenza Type A (PCR) NEGATIVE (Negative) Influenza Type B (PCR) NEGATIVE (Negative) RSV RNA Qual (PCR) NEGATIVE (Negative) SARS-CoV-2 RNA (RT-PCR) NEGATIVE (Negative) 07/28/24 07/29/24 Range/Units 21:16 07:52 WBC (4.8-10.8) X10*3/uL RBC (4.20-5.50) X10*6/uL Hgb (12.0-16.0) g/dl Hct (37.0-47.0) % MCV (80.0-98.0) fL MCH (27.0-33.0) pg MCHC (31.0-35.0) g/dl RDW (11.0-16.0) % Plt Count (160-400) X10*3/uL MPV (9.4-12.3) fL Immature Gran % (Auto) (0.0-0.4) % Neut % (Auto) (45-73) % Lymph % (Auto) (20-40) % [place] % (Auto) (2-11) % Eos % (Auto) (0-4) % Baso % (Auto) (0-2) % Lymph # (Auto) (1.2-4.9) X10*3/uL [place] # (Auto) (0.1-1.2) X10*3/uL Eos # (Auto) (0.0-0.4) X10*3/uL Baso # (Auto) (0.0-0.2) X10*3/uL Abs Immat Gran (auto) (0.00-0.03) X10*3/uL Absolute Neuts (auto) (2.0-8.3) x10*3/uL Absolute Nucleated RBC (0.0-0.012) X10*3/uL Nucleated RBC % (auto) (0.0-0.2) /100WBC ESR (0-20) MM/HR Sodium (135-145) mmol/L Potassium (3.3-5.1) mmol/L Chloride (96-108) mmol/L Carbon Dioxide (22-29) mmol/L Anion Gap (12-20) BUN (9-16) mg/dL Creatinine (0.5-1.4) mg/dL Estim Creat Clear Calc Estimated GFR POC Glucose 170 H 144 H (60-115) mg/dL Random Glucose (60-115) mg/dL Uric Acid (2.4-5.7) mg/dL Calcium (8.4-10.2) mg/dL Total Bilirubin (0.0-1.0) mg/dL AST (5-31) U/L ALT (0-31) U/L Alkaline Phosphatase (39-117) U/L C-Reactive Protein (< or = 0.50) mg/dL Total Protein (6.5-8.0) g/dL Albumin (3.5-5.0) g/dL Urine Color Urine Appearance Urine pH (5.0-9.0) Ur Specific Stevens (1.005-1.025) Urine Protein (Neg-Trace) mg/dL Urine Glucose (UA) (Negative) mg/dL Urine Ketones (Negative) mg/dL Urine Blood (Negative) Urine Nitrite (Negative) Ur Leukocyte Esterase (Negative) Urine RBC (0-2) /HPF Urine WBC (0-5) /HPF Ur Squamous Epith Cells (0-2) /HPF Urine Bacteria (None Seen) Hyaline Casts (0-2) /LPF Influenza Type A (PCR) (Negative) Influenza Type B (PCR) (Negative) RSV RNA Qual (PCR) (Negative) SARS-CoV-2 RNA (RT-PCR) (Negative) Radiology Impression Discussion of test interpretation with radiology: I have reviewed the radiologist's reading. Radiologist Impression: XR/XR knee LT 4V IMPRESSION: Probable MCL calcification. Otherwise unremarkable examination of the left knee. Electronically signed by: Nicho Rodriguez MD 07/24/2024 10:54 AM EDT Discharge Plan Discharge Clinical Impression: Knee pain, left Patient Disposition: Xfer Inpatient Rehab Fac Transfer Details: TO: [facility],[phone] Instructions: Knee Pain (ED) Prescriptions: No Action losartan 100 mg tablet 100 mg PO DAILY Qty: 90 2RF rosuvastatin [Crestor] 10 mg tablet 10 mg PO DAILY Qty: 30 5RF apixaban 5 mg tablet 5 mg PO BID Patient Comments: PT states she takes Eliquis 5MG once daily in the morning. albuterol sulfate 2.5 mg /3 mL (0.083 %) solution for nebulization 2.5 mg inhalation Q4-6H PRN (Reason: Shortness Of Breath Or Wheezing) acetaminophen 500 mg Tablet 1,000 mg PO BID PRN (Reason: Pain) diclofenac sodium 1 % gel 2 g topical QID PRN (Reason: Pain) loratadine 10 mg tablet 10 mg PO DAILY cholecalciferol (vitamin D3) 25 mcg (1,000 unit) capsule 25 mcg PO DAILY Patient Comments: PT states she took this dose, this am @ 0900 diltiazem HCl 300 mg capsule,extended release 24hr 300 mg PO DAILY Patient Comments: PT states she took the medicine this morning at 0900 metformin 500 mg tablet extended release 24 hr 1,000 mg PO BID diazepam 5 mg tablet 5 mg PO DAILY PRN (Reason: Anxiety) Patient Comments: PT takes this PRN. omeprazole 20 mg capsule,delayed release(DR/EC) 20 mg PO DAILY PRN (Reason: Heartburn) Referrals: [facility] [Outside] Erum Quinones MD [Primary Care Provider] - Interventions: ED Discharge Assessment Last Done: 07/29/24 09:22 Discharge Date/Time: 07/29/24 09:22 Print Language: Liberian
[2024-07-27 10:18] VITALS: BP 139/65; PULSE 60; RESP 17; TEMP 36.6; O2SAT 96
--- NOTE | 2024-07-27 11:25 | PC.NURSE ---
very unsteady with 2 assist up to commode at bedside.
[2024-07-27 12:03] LABS: MANUAL DIFF FLAG NO
[2024-07-27 12:04] LABS: Basophils Absolute Auto 0.1 X10*3/uL (0.0-0.2); Basophils Percent Auto 0.6 % (0-2); Eosinophils Absolute Auto 0.1 X10*3/uL (0.0-0.4); Eosinophils Percent Auto 0.6 % (0-4); Hematocrit 36.7 % (37.0-47.0); Hemoglobin 12.4 g/dl (12.0-16.0); Imm Gran Abs Auto 0.04 X10*3/uL (0.00-0.03); Imm Gran Pct Auto 0.4 % (0.0-0.4); Lymphocytes Absolute Auto 2.8 X10*3/uL (1.2-4.9); Lymphocytes Percent Auto 25.1 % (20-40); Mean Corpuscular HGB Conc 33.8 g/dl (31.0-35.0); Mean Corpuscular Hemoglobin 28.9 pg (27.0-33.0); Mean Corpuscular Volume 85.5 fL (80.0-98.0); Mean Platelet Volume 10.3 fL (9.4-12.3); Monocytes Percent Auto 8.5 % (2-11); Neutrophils Absolute Auto 7.3 x10*3/uL (2.0-8.3); Neutrophils Percent Auto 64.8 % (45-73); Platelet Count 211 X10*3/uL (160-400); Red Blood Count 4.29 X10*6/uL (4.20-5.50); Red Cell Distribution Width 13.4 % (11.0-16.0); White Blood Count 11.3 X10*3/uL (4.8-10.8)
[2024-07-27 12:05] LABS: Appearance Urine Clear; Color Urine Yellow; Glucose Urine UA 500 mg/dL (Negative); Leukocyte Esterase Urine Negative (Negative); Nitrite Urine Negative (Negative); PH 5.5 (5.0-9.0); Specific Gravity - Urine 1.015 (1.005-1.025); UMIC TRIGGER UACC YES; Urine Blood Negative (Negative); Urine Ketones Negative (Negative); Urine Protein 100 (2+) mg/dL (Neg-Trace)
[2024-07-27 12:07] LABS: Bacteria Urine Trace (None Seen); Hyaline Casts Urine 0-2 /LPF (0-2); RBC Urine 0-2 /HPF (0-2); WBC Urine 0-5 /HPF (0-5)
[2024-07-27 12:22] LABS: Alanine Aminotransferase 13 U/L (0-31); Alkaline Phosphatase 154 U/L (39-117); Anion Gap 13 (12-20); Aspartate Amino Transferase 20 U/L (5-31); Bilirubin Total 0.4 mg/dL (0.0-1.0); Blood Urea Nitrogen 21 mg/dL (9-16); Calcium 10.1 mg/dL (8.4-10.2); Carbon Dioxide 26 mmol/L (22-29); Chloride 106 mmol/L (96-108); Creatinine Clr Calc Pharmacy 45.1; Estimated Glomerular Filt Rate > 60; Glucose Random 203 mg/dL (60-115); Potassium 5.1 mmol/L (3.3-5.1); Sodium 140 mmol/L (135-145); Uric Acid 4.8 mg/dL (2.4-5.7)
[2024-07-27 12:43] LABS: Erythrocyte Sedimentation Rate 75 MM/HR (0-20)
--- NOTE | 2024-07-27 12:56 | MHC.CM.PN ---
CM RECEIVED ED CM CONSULT. CM MET WITH PT AT BEDSIDE IN ED. PT LIVES ALONE AND USES WALKER FOR MOBILITY. PT ALSO USES A CANE AT TIMES. 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 + HCP (PT STATES [facility] HAS A COPY NAMING HER DAUGHTER AND GRANDSON) CM TO REQUEST COPY ON 07/28. PCP DR. VALVERDE AT [facility]. DP: PT WILL AWAIT P.T. EVAL TO DETERMINE NEEDS. PT'S FIRST CHOICE FOR REHAB IS [facility]. REFERRAL SENT. CM WILL CONTINUE TO FOLLOW FOR PLAN.
[2024-07-27 13:22] VITALS: BP 142/81; PULSE 67; RESP 18; TEMP 36.2; O2SAT 98
--- NOTE | 2024-07-27 14:17 | PHA.MEDREC ---
Addendum entered by Maren Lara RPh 07/27/24 14:35: MED REC WAS REVIEWED BY [facility]. Original Note: Pharmacy Consult ? Medication Reconciliation Pharmacy has completed the medication reconciliation. Spoke with patient to confirm medications through an bond manager. She said she has another inhaler at home since her Flovent but [facility] does not have another inhaler on file besides Flovent from 2022. Patient does not know the name of it. Left off of med list. She reports she took her medications this morning except for eliquis which she last took yesterday.
[2024-07-27] MEDS: Acetaminophen 325 MG TABLET 975 MG PO (15:14)
[2024-07-27] MEDS: Omeprazole 20 MG CAPSULE.DR PO (15:43)
--- NOTE | 2024-07-27 18:28 | PC.NURSE ---
PT Dinner tray arrived POC obtained, POC 206 dinner tray at bedside pt assisted with meal setup.
[2024-07-27 18:34] LABS: Glucose, Whole Blood 206 mg/dL (60-115)
[2024-07-27] MEDS: Apixaban 5 MG TABLET PO (21:27)
[2024-07-27] MEDS: metFORMIN HCl ER 500 MG TAB.ER.24H 1000 MG PO (21:27)
[2024-07-27 22:09] VITALS: BP 142/67; PULSE 76; RESP 16; TEMP 36.6; O2SAT 95
[2024-07-27 23:51] VITALS: BP 160/61; PULSE 80; RESP 18; TEMP 36.4; O2SAT 98
[2024-07-28 05:49] VITALS: BP 157/69; PULSE 77; TEMP 36.6; O2SAT 98
[2024-07-28 07:18] LABS: Glucose, Whole Blood 172 mg/dL (60-115)
[2024-07-28 08:35] VITALS: BP 150/62; PULSE 87; RESP 17; TEMP 36.9; O2SAT 96
[2024-07-28] MEDS: Omeprazole 20 MG CAPSULE.DR PO (09:02)
[2024-07-28] MEDS: dilTIAZem HCL CD 300 MG CAP.ER.24H PO (09:02)
[2024-07-28] MEDS: Atorvastatin Calcium 40 MG TABLET PO (09:02)
[2024-07-28] MEDS: Loratadine 10 MG TABLET PO (09:02)
[2024-07-28] MEDS: metFORMIN HCl ER 500 MG TAB.ER.24H 1000 MG PO ×2 (09:02→21:46)
[2024-07-28] MEDS: Cholecalciferol (Vitamin D3) 25 MCG TABLET PO (09:02)
[2024-07-28] MEDS: Apixaban 5 MG TABLET PO ×2 (09:02→21:46)
[2024-07-28] MEDS: Losartan Potassium 50 MG TABLET 100 MG PO (09:02)
[2024-07-28 09:51] VITALS: BP 150/62; PULSE 87; O2SAT 96
[2024-07-28 10:20] LABS: Influenza A PCR NEGATIVE (Negative); Influenza B PCR NEGATIVE (Negative); Resp Syncy Virus RNA Qual PCR NEGATIVE (Negative); SARS COV2 PCR INHOUSE NEGATIVE (Negative)
[2024-07-28 11:27] LABS: Glucose, Whole Blood 178 mg/dL (60-115)
[2024-07-28] MEDS: Acetaminophen 325 MG TABLET 975 MG PO (11:41)
--- NOTE | 2024-07-28 11:53 | PC.NURSE ---
Assumed care of this patient at 1100, patient currently sitting up eating lunch, c/o L knee pain, medicated per APR.
--- NOTE | 2024-07-28 13:54 | MHC.CM.ED ---
Patient remains in ER overflow. Physical therapy eval completed. Short term rehab is recommended. Clinical updates sent to [facility]. [facility] is able to offer a bed and is in the process of obtaining insurance auth. Patient and daughter, Karen that patient's pain is not being managed by Tylenol. Gabbi TRUST MANAGER ASSISTANT aware and will address pain issues. Continue to monitor for d/c needs.
[2024-07-28 14:00] VITALS: BP 137/54; PULSE 71; RESP 16; TEMP 37.1; O2SAT 97
--- NOTE | 2024-07-28 14:47 | PC.NURSE ---
Spoke to patient w/ run boat operator regarding plan of care - patient to go to [facility] tomorrow morning. Patient verblized understanding. Patient states her pain is a 4/10, requesting anti-inflammatories because her daughter spoke to Dr. Alegria and the doctor said it was okay . ED provider Gabbi made aware, will order.
[2024-07-28] MEDS: traMADoL HCL 50 MG TABLET PO (15:23)
[2024-07-28 16:54] LABS: Glucose, Whole Blood 143 mg/dL (60-115)
[2024-07-28 21:19] LABS: Glucose, Whole Blood 170 mg/dL (60-115)
[2024-07-28 21:25] VITALS: BP 123/54; PULSE 67; RESP 16; TEMP 37.1; O2SAT 96
[2024-07-29] MEDS: Omeprazole 20 MG CAPSULE.DR PO (05:16)
[2024-07-29] MEDS: traMADoL HCL 50 MG TABLET PO (05:17)
[2024-07-29 05:40] VITALS: BP 142/59; PULSE 72; RESP 18; TEMP 36.8; O2SAT 96
[2024-07-29 07:55] LABS: Glucose, Whole Blood 144 mg/dL (60-115)
[2024-07-29 08:09] VITALS: BP 123/56
[2024-07-29] MEDS: Apixaban 5 MG TABLET PO (08:09)
[2024-07-29] MEDS: Losartan Potassium 50 MG TABLET 100 MG PO (08:09)
[2024-07-29] MEDS: Cholecalciferol (Vitamin D3) 25 MCG TABLET PO (08:09)
[2024-07-29] MEDS: Atorvastatin Calcium 40 MG TABLET PO (08:09)
[2024-07-29] MEDS: Loratadine 10 MG TABLET PO (08:09)
[2024-07-29 08:10] VITALS: BP 123/56; PULSE 70
[2024-07-29] MEDS: metFORMIN HCl ER 500 MG TAB.ER.24H 1000 MG PO (08:10)
[2024-07-29] MEDS: dilTIAZem HCL CD 300 MG CAP.ER.24H PO (08:10)
--- NOTE | 2024-07-29 09:18 | PC.NURSE ---
Call placed to [facility]. Spoke with EVANGELINA Hernandez for RN to RN report. David given opportunity for questions and all questions answered to satisfaction. [facility] arrives on unit. RN report given. Care of Pt relinquished to [facility] [id number] Pt has left the unit
[2024-07-29 09:22] VITALS: BP 123/56; PULSE 70; RESP 17; TEMP 36.8; O2SAT 95
== END 2024-07-29 09:22 ==
PROVIDERS: Emergency Medicine; Physician Assistant Medical; Registered Nurse Emergency; Emergency Provider Emergency Medicine; PCP Family Medicine
DX: M25.562 Pain in left knee (principal); M25.862 Other specified joint disorders, left knee; R60.0 Localized edema; I10 Essential (primary) hypertension; E78.5 Hyperlipidemia, unspecified; Z86.718 Personal history of other venous thrombosis and embolism; Z79.01 Long term (current) use of anticoagulants; Z03.818 Encounter for observation for suspected exposure to other biological agents ruled out; Z79.02 Long term (current) use of antithrombotics/antiplatelets; Z79.899 Other long term (current) drug therapy
CPT/HCPCS: 0241U; 36415; 73562; 80053; 81001; 82947; 84550; 85025; 85652; 86140; 97162; 99285

== ENCOUNTER → 2024-07-27 16:41 | Outpatient (BNV) | payer OTHER, SELFPAY | PROVIDERS: Emergency Provider Emergency Medicine; PCP Family Medicine; Visit Provider Radiology Diagnostic Radiology | DX: M25.562 Pain in left knee (principal) | CPT/HCPCS: 73562 ==

== ENCOUNTER 2024-10-10 09:23 | Outpatient (AMB) | payer OTHER, SELFPAY ==
--- OUTSIDE RECORDS SUMMARY | 2024-10-10 09:29 | XMS_ITS | Continuity of Care Document ---
Author Name Rui Hammond Address [address] [place] [id number] Organization Unknown Address [address] [place] [address] Medications No known medications Problems No known problems
--- OUTSIDE RECORDS SUMMARY | 2024-10-10 09:29 | XMS_ITS | Encounter Summary ---
Author Organization [employer] Address [address] [facility] [address] [place] [address] Care Team Providers Care Saddle And Side Wire Stitcher Name Role Phone Erum Quinones MD Primary Care Provider [phone] Encounter Details Date Type Department Care Team ([facility] st Contact Info) Description 01/29/[address] [facility] [address] [place], [place] [phone] Erum Quinones MD [address] [place], [place] [phone] Type 2 diabetes mellitus with hyperglycemia, without long-term current use of insulin ([facility]) (Primary Dx); Hypertension, unspecified type; Dyslipidemia; Other [...] Care Team (Late st Contact Info) Description 10/13/2024 10:[address] [facility] [address] [place] [address] Scheduled Orders Name Type Priority Associated Diagnoses Orde r Schedule Vitamin D 25 hydroxy Lab Routine Other osteoporosis without current pathological fracture Expected: 01/29/2023 (Approximate), Expires: 01/30/2024 documented as of this encounter Procedures Procedure Name Priority Date/Time Associated Diagnosis Comments ALBUMIN, RANDOM URINE W/CREATININE Routine 02/02/2023 10:37 AM EST Type 2 diabetes mellitus with hyperglycemia, without long-term current use of insulin ([facility]) VITAMIN B12/FOLATE, SERUM PANEL Routine 02/02/2023 10:34 AM EST Type 2 diabetes mellitus with hyperglycemia, without long-term current use of insulin ([facility]) TSH W/REFLEX TO FT4 Routine 02/02/2023 1 0:34 AM EST Hypertension, unspecified type LIPID PANEL WITH REFLEX TO DIRECT LDL Routine 02/02/2023 10:34 AM EST Type 2 diabetes mellitus with hyperglycemia, without long-term current use of insulin ([facility]) Dyslipidemia URIC ACID Routine 02/02/2023 10:34 AM EST Gout, unspecified cause, unspecified chronicity, unspecified site PTH, INTACT WITHOUT CALCIUM Routine 02/02/2023 10:34 AM EST Other osteoporosis without current pathological fracture COMPREHENSIVE METABOLIC PANEL Routine 02/02/2023 10:34 AM EST Type 2 diabetes mellitus with hyperglycemia, without long-term current use of insulin ([facility]) documented in this encounter Results * (ABNORMAL) Albumin, Random Urine W/Creatinine (02/02/2023 10:37 AM EST) Creatinine, Urine 81.69 mg/dL [facility] Microalbumin Urine 641.0 mg/L H [facility] Microalbum Creatinine Ratio Ur 784.6(H) <30 ug/mg cr [facility] Comment:Albumin/Creatinine R atio Reference Ranges: Normal: < 30 ug/mg creatinine Microalbuminuria: 30 - 300 ug/mg creatinineClinical Albuminuria: > 300 ug/mg creatinine Urine 02/02/2023 10:3 7 AM EST 02/02/2023 11:11 AM EST us Erum Quinones MD LAB URINE ORDERABLES Final Resul t Performing Organization Address City/[facility]/ZIP Co de Phone Number [facility] [address] [place] [phone] * TSH W/Reflex to FT4 (02/02/2023 10:34 AM EST) TSH reflex Free T4 1.51 0.32 - 4.0 uIU/mL [facility] Blood 02/02/2023 10:3 4 AM EST 02/02/2023 11:13 AM EST us Erum Quinones MD LAB BLOOD ORDERABLES Final Resul t Performing Organization Address City/[facility]/ZIP Co de Phone Number [facility] [address] [place] [phone] * (ABNORMAL) Lipid Panel with Reflex to Direct LDL (02/02/2023 10:34 AM EST) Triglycerides 128 <150 mg/dL [facility] Comment:Desirable Triglyceri de: less than 150 mg/dLBorderline High Triglyceride 150-199 mg/dLHigh Triglyceride: 200-499 mg/dLVery High Triglyceride: greater than or equal to 5OO mg/dL Cholesterol 248(H) <200 mg/dL [facility] Comment:Desirable Cholestero l: less than 200 mg/dLBorderline High Cholesterol: 200-239 mg/dLHigh Cholesterol: greater than 239 mg/dL LDL Cholesterol Calculated 177(H) <100 mg/dL [facility] Comment:Desirable LDL: less than 100 mg/dLNear Optimal/Above Optimal LDL: 110- 129 mg/dLBorderline High LDL: 130-159 mg/dLHigh LDL: 160-189 mg/dLVery High LDL: greater than or equal to 190 mg/dL HDL Cholesterol 46 >40 mg/dL [facility] Comment:Desirable HDL: great er than 40 mg/dL Note: This HDL assay may give artificially low results in patients with liver disease. Blood 02/02/2023 10:3 4 AM EST 02/02/2023 11:13 AM EST us Erum Quinones MD LAB BLOOD ORDERABLES Final Resul t [facility] [address] [place] [address] [phone] * (ABNORMAL) Comprehensive Metabolic Panel (02/02/2023 10:34 AM EST) Sodium 141 135 - 145 mmol/L [facility] Potassium 4.1 3.3 - 5.1 mmol/L [facility] Chloride 105 96 - 108 mmol/L [facility] Carbon Dioxide 24 22 - 29 mmol/L [facility] Anion Gap 16 12 - 20 [facility] Urea Nitrogen (BUN) 27(H) 9 - 16 mg/dL [facility] Creatinine, Serum 0.73 0.5 - 1.4 mg/dL [facility] Estimated Glomerular Filt Rate >60 [facility] Comment:NOTE: For -Am erican individuals, multiply the result by 1.210.Chronic Kidney Disease: Estimated GFR < 60 mL/min/1.70u2Hirnky Kidney Disease: Estimated GFR < 15 mL/min/1.73m2 Glucose 185(H) 60 - 115 mg/dL [facility] Calcium 9.9 8.4 - 10.2 mg/dL [facility] Bilirubin, Total 0.4 0.0 - 1.0 mg/dL [facility] Aspartate Amino Transferase 18 5 - 31 U/L [facility] Alanine Aminotransferase 17 0 - 31 U/L [facility] Total Protein 8.2(H) 6.5 - 8.0 g/dL [facility] Albumin Level 4.0 3.5 - 5.0 g/dL [facility] Alkaline Phosphatase 144(H) 39 - 117 U/L [facility] Blood Venous blood specimen / Unknown 02/02/2023 10:34 AM EST 02/02/2023 11:13 AM EST us Erum Quinones MD LAB BLOOD ORDERABLES Final Resul t [facility] [address] [place] [phone] * (ABNORMAL) Vitamin B12/Folate, Serum Panel (02/02/2023 10:34 AM EST) Vitamin B12 1,053(H) 200 - 900 pg/mL [facility] Comment:NORMAL 200-900 PG/ML INDETERMINATE 160-199 PG/ML DEFICIENT < 160 PG/ML Folate 8.2 > or = 4.0 ng/mL [facility] Comment:Reference Values:> o r = 4.0 ng/mL< 4.0 ng/mL suggests folate deficiency Methotrexate, aminopterin and folinic acid(leucovorin) are chemotherapeutic agents whose molecularstructures are similar to folate; therefore, the Architectfolate assay cannot be used for patients using these drugs. 02/02/2023 10:3 4 AM EST 02/02/2023 11:13 AM EST Erum Quinones MD LAB BLOOD ORDERABLES Final Resul t Performing Organization Address [facility] Co de Phone Number [facility] [address] [place] [phone] * PTH, Intact Without Calcium (02/02/2023 10:34 AM EST) Parathyroid Hormone, Intact 72.1 8.7 - 77.1 pg/mL [facility] Blood Venous blood specimen / Unknown 02/02/2023 10:34 AM EST 02/02/2023 11:13 AM EST us Erum Quinones MD LAB BLOOD ORDERABLES Final Resul t Performing Organization Address [facility] de Phone Number [facility] [address] [place] [phone] * (ABNORMAL) Uric acid (02/02/2023 10:34 AM EST) Uric Acid 6.6(H) 2.4 - 5.7 mg/dL [facility] Blood Venous blood specimen / Unknown 02/02/2023 10:34 AM EST 02/02/2023 11:13 AM EST Erum Quinones MD LAB BLOOD ORDERABLES Final Resul t Performing Organization Address [facility] Co de Phone Number [facility] [address] [place] [phone] documented in this encounter Visit Diagnoses Diagnosis Type 2 diabetes mellitus with hyperglycemia, without long-term current use of insulin ([facility])- Primary Hypertension, unspecified type Dyslipidemia Other and unspecified hyperlipidemia Other osteoporosis without current pathological fracture Gout, unspecified cause, unspecified chronicity, unspecified site documented in this encounter Additional Health Concerns Assessment Noted Time PHQ-9 Depression Total Score: 0 11/16/ 23 10:44 AM EDT documented as of this encounter Care Teams Saddle And Side Wire Stitcher Relationship Specialty Start Date End Date Erum Quinones MD [address] [place] [phone] PCP - General Family Medicine 02/19/18 Frankyearonald 08/15/24 documented as of this encounter
[2024-10-10 09:37] VITALS: BMI 26.4
--- NOTE | 2024-10-10 09:37 | MHC.OFFVIS ---
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 Patient presented to ER in July for several weeks of pain after she took a large step, she feels as if she lost strength. She was seen at [facility] walk in clinic where x-rays were performed and referred to orthopedics. Patient was at [facility] which gave her physical therapy and helped her knee pain and mobility. Today patient reports she is doing better today and would like to know what the X rays show. 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 Wenceslao Wolfe is an 79-year-old female who presents to the office today for evaluation of left knee pain. Patient reports that she began to have significant pain in the left knee after taking a large step. She felt as though she lost strength in the left knee. She presented to the emergency department on 07/27/2024 where x-rays were obtained and were significant for a small calcification along the MCL adjacent to the medial femoral condyle. Patient reports that she was transferred to a rehab facility for 3 weeks. [facility] Medical History Left leg DVT Hyperlipidemia HTN (hypertension) Surgical History History of section Family History Father No problems noted. Mother No problems noted. Social History (Updated 10/10/24 @ 09:48 by Ben Wood) Household Members: Other Alcohol intake: never Patient Tobacco Use Status: Never used Tobacco Advance Directives Date on File: 07/29/24 Current occupational status: retired Review of Systems Const All systems reviewed & are unremarkable except as noted in HPI and below Physical Exam Vital Signs: BMI result Body Mass Index 26.4 Const General: cooperative, healthy appearing and no acute distress Resp Effort & Inspection: normal respiratory effort and able to speak in complete sentences Extrem Other: Left knee: Normal to inspection. No ecchymosis, erythema, or joint effusion. No tenderness to palpation along the medial or lateral joint lines. Full knee extension and flexion. NVI. Psych Appearance: grossly normal Mental Status: mental status grossly normal Attitude: cooperative Assessment & Plan Assessment & Plan (1) Osteoarthritis of left knee: Code(s): M17.12 - Unilateral primary osteoarthritis, left knee Category: Medical Plan Ms. Wenceslao Wolfe is an 79-year-old female who presents to the office today for evaluation of left knee pain. Patient reports that she began to have significant pain in the left knee after taking a large step. She felt as though she lost strength in the left knee. She presented to the emergency department on 07/27/2024 where x-rays were obtained and were significant for a small calcification along the MCL adjacent to the medial femoral condyle. Patient reports that she was transferred to a rehab facility for 3 weeks. While the office today, the patient is no longer experiencing any pain. We discussed the role of conservative treatment including cortisone injection, gel injection, oral anti-inflammatories and knee bracing. As the patient is not experiencing any symptoms today all of these options have been deferred. She will follow up PRN, sooner if needed. X-rays of the left knee which were obtained while in the office today and were reviewed by me, Minerva Boland PA-C, revealed calcification of the MCL adjacent to the medial femoral condyle. No acute fracture or dislocation. Orders: Orders XR knee LT 3V Today M25.569 - Pain in unspecified knee Coding Level of Care Code New Pt Level 3 (12070) Diagnoses Osteoarthritis of left knee M17.12
== END 2024-10-10 10:09 | disposition home or self-care (01) ==
LOC: HO.HOS 09:23
PROVIDERS: Visit Provider Physician Assistant
DX: M17.12 Unilateral primary osteoarthritis, left knee (principal)
CPT/HCPCS: 99203

== ENCOUNTER → 2024-10-10 09:28 | Outpatient (BNV) | payer OTHER, SELFPAY | PROVIDERS: Visit Provider Radiology Diagnostic Radiology | DX: M17.12 Unilateral primary osteoarthritis, left knee (principal) | CPT/HCPCS: 73562 ==

== ENCOUNTER 2024-10-10 10:01 | Outpatient (REF) | payer OTHER, SELFPAY ==
--- NOTE | ~2024-10-10 | XR_ITS ---
EXAMINATION: XR KNEE, LEFT CLINICAL INFORMATION: M25.569 - Pain in unspecified knee COMPARISON: July 27, 2024 TECHNIQUE: AP in standing position both knees. Lateral and sunrise view of the left knee. FINDINGS: Joint space narrowing involving mostly the lateral compartment with sclerosis along the articular surface of the tibial plateau. No chondrocalcinosis. No acute cortical disruption or malalignment. Small volume suprapatellar bursa joint effusion. Osteopenia versus osteoporosis. No lytic or blastic lesions. Vascular calcifications. XR/XR knee LT 3V IMPRESSION: Tricompartmental osteoarthrosis/osteoarthritis involving mostly the lateral compartment, moderate to severe. Electronically signed by: Juan Daniel Limon MD 10/10/2024 09:50 AM EDT
--- OUTSIDE RECORDS SUMMARY | 2024-10-13 11:02 | XMS_ITS | Encounter Summary ---
Author Organization [employer] Address [address] [facility] [address] [place] [address] Care Team Providers Care Mining Technician Name Role Phone Erum Quinones MD Primary Care Provider [phone] Encounter Details Date Type Department Care Team ([facility] st Contact Info) Description 01/29/2023 Orders Only [facility] [address] [place], [place] [phone] Erum Quinones MD [address] [place], [place] [phone] Type 2 diabetes mellitus with hyperglycemia, without long-term current use of insulin ([facility]) (Primary Dx); Hypertension, unspecified type; Dyslipidemia; [...] Care Team (Late st Contact Info) Description 10/27/2024 10:30 AM EDT Clinical Support [facility] [address] [place] [phone] Scheduled Orders Name Type Priority Associated Diagnoses Orde r Schedule Vitamin D 25 hydroxy Lab Routine Other osteoporosis without current pathological fracture Expected: 01/29/2023 (Approximate), Expires: 01/30/2024 documented as of this encounter Procedures Procedure Name Priority Date/Time Associated Diagnosis Comments ALBUMIN, RANDOM URINE W/CREATININE Routine 02/02/2023 10:37 AM EST Type 2 diabetes mellitus with hyperglycemia, without long-term current use of insulin ([facility]) VITAMIN B12/FOLATE, SERUM PANEL Routine 02/02/2023 10:34 AM EST Type 2 diabetes mellitus with hyperglycemia, without long-term current use of insulin ([facility]) TSH W/REFLEX TO FT4 Routine 02/02/2023 1 0:34 AM EST Hypertension, unspecified type LIPID PANEL WITH REFLEX TO DIRECT LDL Routine 02/02/2023 10:34 AM EST Type 2 diabetes mellitus with hyperglycemia, without long-term current use of insulin ([facility]) Dyslipidemia URIC ACID Routine 02/02/2023 10:34 AM EST Gout, unspecified cause, unspecified chronicity, unspecified site PTH, INTACT WITHOUT CALCIUM Routine 02/02/2023 10:34 AM EST Other osteoporosis without current pathological fracture COMPREHENSIVE METABOLIC PANEL Routine 02/02/2023 10:34 AM EST Type 2 diabetes mellitus with hyperglycemia, without long-term current use of insulin ([facility]) documented in this encounter Results * (ABNORMAL) Albumin, Random Urine W/Creatinine (02/02/2023 10:37 AM EST) Creatinine, Urine 81.69 mg/dL [facility] Microalbumin Urine 641.0 mg/L H [facility] Microalbum Creatinine Ratio Ur 784.6(H) <30 ug/mg cr [facility] Comment:Albumin/Creatinine R atio Reference Ranges: Normal: < 30 ug/mg creatinine Microalbuminuria: 30 - 300 ug/mg creatinineClinical Albuminuria: > 300 ug/mg creatinine Urine 02/02/2023 10:3 7 AM EST 02/02/2023 11:11 AM EST us Erum Quinones MD LAB URINE ORDERABLES Final Resul t Performing Organization Address City/[facility]/ZIP Co de Phone Number [facility] [address] [place] [phone] * TSH W/Reflex to FT4 (02/02/2023 10:34 AM EST) TSH reflex Free T4 1.51 0.32 - 4.0 uIU/mL [facility] Blood 02/02/2023 10:3 4 AM EST 02/02/2023 11:13 AM EST us Erum Quinones MD LAB BLOOD ORDERABLES Final Resul t Performing Organization Address City/[facility]/ZIP Co de Phone Number [facility] [address] [place] [phone] * (ABNORMAL) Lipid Panel with Reflex to Direct LDL (02/02/2023 10:34 AM EST) Triglycerides 128 <150 mg/dL [facility] Comment:Desirable Triglyceri de: less than 150 mg/dLBorderline High Triglyceride 150-199 mg/dLHigh Triglyceride: 200-499 mg/dLVery High Triglyceride: greater than or equal to 5OO mg/dL Cholesterol 248(H) <200 mg/dL [facility] Comment:Desirable Cholestero l: less than 200 mg/dLBorderline High Cholesterol: 200-239 mg/dLHigh Cholesterol: greater than 239 mg/dL LDL Cholesterol Calculated 177(H) <100 mg/dL [facility] Comment:Desirable LDL: less than 100 mg/dLNear Optimal/Above Optimal LDL: 110- 129 mg/dLBorderline High LDL: 130-159 mg/dLHigh LDL: 160-189 mg/dLVery High LDL: greater than or equal to 190 mg/dL HDL Cholesterol 46 >40 mg/dL [facility] Comment:Desirable HDL: grea ter than 40 mg/dL Note: This HDL assay may give artificially low results in patients with liver disease. Blood 02/02/2023 10:3 4 AM EST 02/02/2023 11:13 AM EST us Erum Quinones MD LAB BLOOD ORDERABLES Final Resul t [facility] [place], [place] [phone] * (ABNORMAL) Comprehensive Metabolic Panel (02/02/2023 10:34 AM EST) Sodium 141 135 - 145 mmol/L [facility] Potassium 4.1 3.3 - 5.1 mmol/L [facility] Chloride 105 96 - 108 mmol/L [facility] Carbon Dioxide 24 22 - 29 mmol/L [facility] Anion Gap 16 12 - 20 [facility] Urea Nitrogen (BUN) 27(H) 9 - 16 mg/dL [facility] Creatinine, Serum 0.73 0.5 - 1.4 mg/dL [facility] Estimated Glomerular Filt Rate >60 [facility] Comment:NOTE: For -Am erican individuals, multiply the result by 1.210.Chronic Kidney Disease: Estimated GFR < 60 mL/min/1.06t9Knsoty Kidney Disease: Estimated GFR < 15 mL/min/1.73m2 Glucose 185(H) 60 - 115 mg/dL [facility] Calcium 9.9 8.4 - 10.2 mg/dL [facility] Bilirubin, Total 0.4 0.0 - 1.0 mg/dL [facility] Aspartate Amino Transferase 18 5 - 31 U/L [facility] Alanine Aminotransferase 17 0 - 31 U/L [facility] Total Protein 8.2(H) 6.5 - 8.0 g/dL [facility] Albumin Level 4.0 3.5 - 5.0 g/dL [facility] Alkaline Phosphatase 144(H) 39 - 117 U/L [facility] Blood Venous blood specimen / Unknown 02/02/2023 10:34 AM EST 02/02/2023 11:13 AM EST us Erum Quinones MD LAB BLOOD ORDERABLES Final Resul t [facility] [address] [place] [address] [phone] * (ABNORMAL) Vitamin B12/Folate, Serum Panel (02/02/2023 10:34 AM EST) Vitamin B12 1,053(H) 200 - 900 pg/mL [facility] Comment:NORMAL 200-900 PG/ML INDETERMINATE 160-199 PG/ML DEFICIENT < 160 PG/ML Folate 8.2 > or = 4.0 ng/mL [facility] Comment:Reference Values:> o r = 4.0 ng/mL< 4.0 ng/mL suggests folate deficiency Methotrexate, aminopterin and folinic acid(leucovorin) are chemotherapeutic agents whose molecularstructures are similar to folate; therefore, the Architectfolate assay cannot be used for patients using these drugs. 02/02/2023 10:3 4 AM EST 02/02/2023 11:13 AM EST Erum Quinones MD LAB BLOOD ORDERABLES Final Resul t Performing Organization Address [facility] Co de Phone Number [facility] [address] [place] [address] [phone] * PTH, Intact Without Calcium (02/02/2023 10:34 AM EST) Parathyroid Hormone, Intact 72.1 8.7 - 77.1 pg/mL [facility] Blood Venous blood specimen / Unknown 02/02/2023 10:34 AM EST 02/02/2023 11:13 AM EST Erum Quinones MD LAB BLOOD ORDERABLES Final Resul t Performing Organization Address [facility] de Phone Number [facility] [address] [place] [address] [phone] * (ABNORMAL) Uric acid (02/02/2023 10:34 AM EST) Uric Acid 6.6(H) 2.4 - 5.7 mg/dL [facility] Blood Venous blood specimen / Unknown 02/02/2023 10:34 AM EST 02/02/2023 11:13 AM EST Erum Quinones MD LAB BLOOD ORDERABLES Final Resul t Performing Organization Address [facility] Co de Phone Number [facility] [address] [place] [address] [phone] documented in this encounter Visit Diagnoses Diagnosis Type 2 diabetes mellitus with hyperglycemia, without long-term current use of insulin ([facility])- Primary Hypertension, unspecified type Dyslipidemia Other and unspecified hyperlipidemia Other osteoporosis without current pathological fracture Gout, unspecified cause, unspecified chronicity, unspecified site documented in this encounter Additional Health Concerns Assessment Noted Time PHQ-9 Depression Total Score: 0 11/17/19 23 10:44 AM EDT documented as of this encounter Care Teams Mining Technician Relationship Specialty Start Date End Date Erum Quinones MD [address] [place] [phone] PCP - General Family Medicine 02/19/18 Roberto 08/15/24 documented as of this encounter
== END 2024-10-10 10:02 | disposition home or self-care (01) ==
LOC: HO.HOSX 10:01
PROVIDERS: Visit Provider Physician Assistant
DX: M17.12 Unilateral primary osteoarthritis, left knee (principal); M25.562 Pain in left knee
CPT/HCPCS: 73562; 99202

== ENCOUNTER 2024-12-08 12:44 | Outpatient (AMB) | payer OTHER, SELFPAY ==
--- NOTE | 2024-12-08 12:59 | A.OFFVIS_ITS ---
Vital Signs 12/08/24 13:00 Height 5 ft 1 in Weight 143 lb 4.807 oz BMI 27.1 BP 120/72 Blood Pressure Location Lt brachial Position Sitting Pulse 69 Intake Visit Reasons: followup high bp Intake Note: Overdue follow-up with ekg c/o increased bp at times Market Research Specialist Required: Yes Market Research Specialist Services: Market Research Specialist Present Market Research Specialist Name: Ariane arroyo Physician/Ophthalmologist: Physician/Ophthalmologist Present Accompanied by: Daughter Allergies penicillin V Allergy (Unknown, Verified 10/10/24 09:44) rash Penicillins (PENICILLINS) Allergy (Unknown, Verified 10/10/24 09:44) RASH Medication List - Last Reconciled 12/08/24 by Heber Mistry MD acetaminophen 1,000 mg PO BID PRN albuterol sulfate 2.5 mg inhalation Q4-6H PRN apixaban 5 mg PO BID cholecalciferol (vitamin D3) 25 mcg PO BID diazepam 5 mg PO DAILY PRN diclofenac sodium 1% 2 grams topical QID PRN diltiazem HCl CD (Cardizem CD) 240 mg PO QAM loratadine 10 mg PO DAILY losartan 100 mg PO DAILY metformin ER 1,000 mg PO BID omeprazole 20 mg PO DAILY PRN rosuvastatin (Crestor) 10 mg PO DAILY HPI Comments Details: Karen comes for follow-up with her daughter. History obtained with help of foreign language interpreter. Patient has no cardiac symptoms. Denies any exertional chest pain or shortness of breath. Was admitted in July with arthritis in his legs. 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 She denies any orthopnea, PND, leg edema. No lightheadedness, syncope. She says sudden things elevated blood pressure including medications as well as caffeine. She is trying to stay off it. She takes all her medications. Her blood pressure today is well optimized. [facility] Medical History Left leg DVT Hyperlipidemia HTN (hypertension) Surgical History History of section Family History Father No problems noted. Mother No problems noted. Social History Household Members: Other Alcohol intake: never Patient Tobacco Use Status: Never used Tobacco Advance Directives Date on File: 07/29/24 Current occupational status: retired Review of Systems Const Denies chills, Denies fatigue, Denies fever(s), Denies frequent falls, Denies weakness, Denies weight gain and Denies weight loss ENT Denies dizziness Card Denies chest pain, Denies leg edema, Denies lightheadedness, Denies palpitations, Denies dyspnea, Denies dyspnea on exertion, Denies orthopnea and Denies other (loss of consciousness) Resp Denies cough, Denies dyspnea and Denies dyspnea on exertion GI Denies hematochezia and Denies change in stool character Musc Denies abnormal gait, Denies muscle weakness, Denies numbness, Denies radiating pain into limb and Denies tingling Neuro Denies abnormal gait, Denies dizziness, Denies frequent falls, Denies numbness, Denies tingling and Denies weakness Endo Denies fatigue and Denies palpitations Physical Exam Vital Signs: Last Vital Signs Pulse 69 12/08/24 13:00 BP 120/72 12/08/24 13:00 BMI result Body Mass Index 27.1 Const General: cooperative, comfortable, no acute distress, alert, awake and well groomed Nutritional Appearance: overweight Orientation/consciousness: patient oriented x3 Limitations: ambulation with walker Neck Neck: Yes trachea midline, Yes supple and Yes no JVD Resp Effort & Inspection: normal respiratory effort Auscultation: clear to auscultation bilaterally Cardio Jugular venous distension: no JVD Palpation: normal PMI Rate: regular rate Rhythm: regular rhythm Heart sounds: S1 normal heart sound present, S2 normal heart sound present, no click, no gallops, Murmur heart sound present systolic early and no rubs GI Auscultation: normal bowel sounds Skin General skin exam: no rashes or lesions noted Neuro General: patient oriented x3 and no focal motor deficits Extrem General: Yes no clubbing, cyanosis or edema Office Procedures EKG Details: EKGs shows normal sinus rhythm with low-voltage QRS with poor R-wave progression most likely due to body habitus and lead placement [id number], Complete Assessment & Plan Assessment & Plan (1) Aortic stenosis: Code(s): I35.0 - Nonrheumatic aortic (valve) stenosis Category: Medical Plan: Patient with early to mild aortic stenosis by clinical exam. No significant progression. Currently on full oral anticoagulation with apixaban and continue the same. Avoid antiplatelet therapy. Continue aggressive blood pressure control, see below. Continue statin therapy with target goal LDL less than 100 mg/dL. No interventions required except for medical therapy at this point time. (2) HTN (hypertension): Code(s): I10 - Essential (primary) hypertension Category: Medical Plan: Hypertension with sudden triggers. Blood pressure is currently well optimized without triggers and on current medications. Importance of good blood pressure control was discussed. She understands agrees. Continue current medications including Cardizem as well as losartan. Advised to monitor blood pressure at home maintain a log. Low-salt diet was discussed. Stress mitigation strategies were discussed. Will follow up in the clinic in 1 year's time, sooner PRN. Thank you for allowing me to partake in her care Orders: Orders CA echo transthoracic complete Today I35.0 - Nonrheumatic aortic (valve) stenosis Coding Level of Care Code Est Pt Level 4 (72299) Complex EM visit Add On G2211 Diagnoses Aortic stenosis I35.0 HTN (hypertension) I10 CPT Codes EKG - CPT: 70747-[id number], Complete ([id number])
[2024-12-08 13:00] VITALS: BP 120/72; PULSE 69; BMI 27.1
== END 2024-12-08 13:24 | disposition home or self-care (01) ==
PROVIDERS: Visit Provider Internal Medicine Cardiovascular Disease
DX: I35.0 Nonrheumatic aortic (valve) stenosis (principal); I10 Essential (primary) hypertension
CPT/HCPCS: 93010; 99214; G2211

== ENCOUNTER → 2024-12-08 12:44 | Outpatient (BNVA) | payer OTHER, SELFPAY | PROVIDERS: Visit Provider Internal Medicine Cardiovascular Disease | DX: I35.0 Nonrheumatic aortic (valve) stenosis (principal); I10 Essential (primary) hypertension | CPT/HCPCS: 93005; 99212 ==

== ENCOUNTER → 2025-01-13 09:59 | Outpatient (REF) | payer OTHER, SELFPAY ==
--- NOTE | 2025-01-13 10:03 | CA_ITS ---
Transthoracic Echocardiogram Patient (Last, First, Middle): Karen Espinal, Gender: F Date of : 1945 Age: 79 Procedure Date: 01/13/2025 Procedure Type: Transthoracic Echocardiogram Location: OP Height: 154.94 cm Weight: 64.86 kg BSA: 1.64 m2 Heart Rate: 62 bpm BP: 120 / 72 mmHg Ophthalmic Asst: SONIA Referring MD: Heber Mistry MD Symptoms: I35.0 - Nonrheumatic aortic (valve) stenosis Study Quality: Adequate ECG Rhythm: Sinus Conclusions: - The left ventricular systolic function is hyperdynamic. The visually estimated ejection fraction is >70%. - Evidence suggests grade II (moderate) diastolic dysfunction. - No obvious valvular pathology seen on this study. Findings Left Ventricle Normal left ventricular cavity size. There is normal left ventricular wall thickness. The left ventricular systolic function is hyperdynamic. The visually estimated ejection fraction is >70%. There is no evidence of regional wall motion abnormalities. Evidence suggests grade II (moderate) diastolic dysfunction. Right Ventricle Normal right ventricular cavity size and systolic function. Atria Both atria are normal in size. Aortic Valve There is a normal trileaflet aortic valve. There is mild calcification of the aortic valve. There is no aortic valve stenosis. There is no aortic valve regurgitation. Mitral Valve The mitral valve appears normal. There is no mitral valve regurgitation. There is no mitral valve stenosis. Pulmonic Valve The pulmonic valve is likely normal. Tricuspid Valve There is no tricuspid valve regurgitation. Tricuspid regurgitation envelope is inadequate for calculation of right ventricular systolic pressure. Great Vessels The asc aorta is normal in size. Venous The inferior vena cava is normal in size and collapses greater than 50% with inspiration. Pericardium/Pleural There is no evidence of pericardial effusion. Prior Study Comparison No significant change compared to prior study dated: 09/19/2021. Recommendations, Care & Conclusions No obvious valvular pathology seen on this study. Measurements 2D Linear Measurements IVSd: 0.97 0.6-0.9/0.6-1.0 cm LVIDd: 4.28 3.9-5.3/4.2-5.9 cm LVIDd Index: 2.61 2.4-3.2/2.2-3.1 cm/m2 LVIDs: 2.90 2.0-3.6 cm LVPWd: 0.80 0.7-1.1 cm LA Diam: 2.90 2.7-3.8/3.0-4.0 cm LAIDs Index: 1.77 1.5-2.3 cm/m2 LV Mass: 148.54 67-162/88-224 g LV Mass Index: 90.57 43-95/49-115 g/m2 LVOT Diam: 1.80 3.0+(-)1.3 cm 2D Systolic Function EF 4C: 72.00 >55% EF 2C: 72.90 >55% EF BiP: 72.90 >55% Mitral Valve MV Pk E: 1.25 MV PK A: 0.91 MV Decel Time: 220.00 E/A: 1.40 E'Lateral: 6.20 E'Medial: 7.07 E/E' Med: 17.70 E/E' Lat: 20.20 PHT: 65.00 MVA PHT: 3.38 Decel Bureau: 5.69 Aortic Valve AoV Pk Napoleon: 1.74 AoV Mn Napoleon: 1.14 AoV VTI: 0.39 AoV Pk Grad: 12.00 Aov Mn Grad: 6.00 DARLYN Cont.VTI: 1.71 LVOT LVOT Pk Napoleon: 1.31 LVOT Mn Napoleon: 0.81 LVOT VTI: 0.26 LVOT Pk Grad: 7.00 LVOT Mn Grad: 3.00 LVOT Diam: 1.80 LVOT Area: 2.54 Diastolic Function MV Pk E: 1.25 MV Pk A: 0.91 E/A: 1.40 E'Medial: 7.07 E/E' Med: 17.70 E' Laterial: 6.20 E/E' Lat: 20.20 Right Ventricle TAPSE (mm): 20.30 TVS' Napoleon: 12.60 Tricuspid Valve RA Press: 3.00 Great Vessels Aorta Sinus of Valsalva: 2.40 2.0-3.5 cm Ao Asc: 3.30 2.1-3.4 cm Pulmonary Veins Pulm Vein S/D 0.90 Pulmonary Valve PV Pk Napoleon: 1.02 Peak PV Grad: 4.00 Updated in Other Vendor System with Status of Final Walt Aguirre MD electronically signed on 01/13/2025 2:26:19 PM with status of Final
--- OUTSIDE RECORDS SUMMARY | 2025-01-13 11:58 | XMS_ITS | Encounter Summary ---
Author Organization [employer] Address [address] [facility] [address] [place] [address] Care Team Providers Care Site Manager Name Role Phone Erum Quinones MD Primary Care Provider [phone] Reason for Visit * Reason Onset Date Comments Durable Medical Equipment 01/12/2025 DME: I ncontinence Supplies Encounter Details Date Type Department Care Team ([facility] st Contact Info) Description 01/12/2025 Telephone [facility] MED[facility]INE [address] [place] [address] Erum Quinones MD [address] [place] [address] Durable Medical Equipment (DME: Incontinence Supplies) Social History Tobacco Use Types Packs/Day Years Used Date Smoking Tobacco: Never Passive Smoke Exposure: Never Smokeless Tobacco: Never Alcohol Use Standard Drinks/Week Comments Never 0 (1 standard drink = 0.6 oz pur e alcohol) Depression Answer Date Recorded Patient Health Questionnaire-9 Score 6 08/26/2024 Patient Health Questionnaire-9 Score 6 08/26/2024 Last PHQ-9: Questionnaire Data Not on file 0 08/26/2024 Housing Stability Answer Date Recorded What is your housing situation today? I have ronaldo lan 11/26/[address] you li ve. Do you have problems with any of the following? None of the above 11/26/2023 Food Insecurity Answer Date Recorded Within the past 12 months, y ou worried that your food would run out before you got money to buy more: Never True 11/26/2023 Within the past 12 months,th e food you bought just didn't last and you didn't have enough money to get more: Never True 08/2023 Transportation Answer Date Recorded In the past 12 months, has l ack of transportation kept you from medical appts, meetings, work or from getting things needed for daily living? No 11/26/2023 Utilities Answer Date Recorded In the past 12 months, has t he electric, gas, oil or water company threatened to shut off services in your home? No 11/26/2023 Depression Answer Date Recorded Patient Health Questionnaire-2 Score 2 08/26/2024 Internet Access Answer Date Recorded Internet Access Q1 Yes 11/26/2023 Internet Access Q2 Not on file 11/26/2023 Comments No Sex and Gender Information Value Date Recorded Sex Assigned at Female 12/19/2021 10:17 AM EDT Legal Sex Female 10:17 AM EDT Gender Identity Female 12/19/2021 10:17 AM EDT Sexual Orientation Straight 12/19/2021 10 :17 AM EDT documented as of this encounter Miscellaneous Notes * Telephone Encounter - Alicia Wood - 01/12/2025 12:57 PM EST Updated and correct order for the requested supplies was generated and sent to [facility] withmost recent Progress Note. Confirmation was uploaded to Media. * Telephone Encounter - Alicia Wood - 01/12/2025 12:57 PM EST ----- Message from Erum Quinones MD sent at 12/22/2024 9:55 AM EST ----- Patient states she is still waiting for chux, wipes, and thick pads for urinary incontinence. Patient requests scripts to be sent to [facility]. Please check the status because I believe we havealready written the script. Thank you. documented in this encounter Plan of Treatment Not on file documented as of this encounter Goals Goal Patient Goal Type Associated Problems Recent Progress Patient-Stated? Author Help patients manage their type 2 diabetes Care Plan Help patients manage their type 2 diabetes Alicia Rubio Weekly blood pressure task Care Plan Weekly blood pressure task Sean Rubioa Help patients manage their type 2 diabetes Care Plan Help patients manage their type 2 diabetes No Alicia Wood Patient has chronic kidney disease Care Plan Patient has chronic kidney disease No Alicia Wood Weekly blood pressure task Care Plan Weekly blood pressure task No Alicia Wood Patient has chronic kidney disease Care Plan Patient has chronic kidney disease No Alicia Wood documented as of this encounter Visit Diagnoses Not on filedocumented in this encounter Additional Health Concerns Active Problems Noted Date Diagnosed Date Help patients manage their type 2 diabetes 01/12 Weekly blood pressure task 01/12/2025 Help patients manage their type 2 diabetes 01/12 Patient has chronic kidney disease 01/12/2025 Weekly blood pressure task 01/12/2025 Patient has chronic kidney disease 01/12/2025 Assessment Noted Time PHQ-9 Depression Total Score: 6 08/27/19 25 9:05 AM EDT documented as of this encounter Care Teams Site Manager Relationship Specialty Start Date End Date Erum Quinones MD [address] [place] [id number] PCP - General Family Medicine 02/19/18 Aveannkamaljit 08/15/24 documented as of this encounter
--- OUTSIDE RECORDS SUMMARY | 2025-01-13 11:58 | XMS_ITS | Encounter Summary ---
Author Organization [employer] Address [address] [facility] [address] [place] [address] Care Team Providers Care Hand Sewer Name Role Phone Erum Quinones MD Primary Care Provider [phone] Encounter Details Date Type Department Care Team ([facility] st Contact Info) Description 11/26/2024 Orders Only [facility] MEDICINE [address] [place], [place] [phone] Erum Quinones MD [address] [place], [place] [phone] Social History Tobacco Use Types Packs/Day Years [...] as of this encounter Plan of Treatment Not on file documented as of this encounter Visit Diagnoses Not on filedocumented in this encounter Additional Health Concerns Assessment Noted Time PHQ-9 Depression Total Score: 6 08/27/19 25 9:05 AM EDT documented as of this encounter Care Teams Hand Sewer Relationship Specialty Start Date End Date Erum Quinones MD [address] [place] [address] PCP - General Family Medicine 02/19/18 Roberto 08/15/24 documented as of this encounter
--- OUTSIDE RECORDS SUMMARY | 2025-01-13 11:58 | XMS_ITS | Encounter Summary ---
Author Organization [employer] Address [address] [facility] [address] [place] [address] Care Team Providers Care Naval Special Warfare Medic Name Role Phone Erum Quinones MD Primary Care Provider [phone] Encounter Details Date Type Department Care Team ([facility] st Contact Info) Description 12/22/2024 Orders Only [facility]INE [address] [place], [place] [phone] Erum Quinones MD [address] [place], [place] [phone] Type 2 diabetes mellitus with hyperglycemia, without long-term current use of insulin (HCC) (Primary Dx); Dyslipidemia; Vitamin D deficiency; Other osteoporosis without current pathological fracture; Leukocytosis, unspecified type; Anemia, unspecified type; Hypertension, unspecified type Social History Tobacco Use Types Packs/Day Years [...] as of this encounter Plan of Treatment Scheduled Orders Name Type Priority Associated Diagnoses Orde r Schedule Comprehensive Metabolic Panel Lab Routine Type 2 diabetes mellitus with hyperglycemia, without long-term current use of insulin (HCC) Dyslipidemia Hypertension, unspecified type Expected: 12/22/2024 (Approximate), Expires: 12/22/2025 Albumin, Random Urine W/Creatinine Lab Routine Type 2 diabetes mellitus with hyperglycemia, without long-term current use of insulin (HCC) Expected: 12/22/2024 (Approximate), Expires: 12/22/2025 Lipid Panel with Reflex to Direct LDL Lab Routine Dyslipidemia Expected: 12/22/2024 (Approximate), Expires: 12/22/2025 Vitamin D, 25-Hydroxy, Total, Immunoassay Lab Routine Vitamin D deficiency Other osteoporosis without current pathological fracture Expected: 12/22/2024 (Approximate), Expires: 12/22/2025 PTH, Intact Without Calcium Lab Routine Vitamin D deficiency Other osteoporosis without current pathological fracture Expected: 12/22/2024, Expires: 12/22/2025 CBC auto differential Lab Routine Leukocytosis, unspecified type Anemia, unspecified type Expected: 12/22/2024 (Approximate), Expires: 12/22/2025 documented as of this encounter Visit Diagnoses Diagnosis Type 2 diabetes mellitus with hyperglycemia, without long-term current use of insulin (HCC)- Primary Dyslipidemia Other and unspecified hyperlipidemia Vitamin D deficiency Other osteoporosis without current pathological fracture Leukocytosis, unspecified type Anemia, unspecified type Hypertension, unspecified type documented in this encounter Additional Health Concerns Assessment Noted Time PHQ-9 Depression Total Score: 6 08/27/19 25 9:05 AM EDT documented as of this encounter Care Teams [employer] Medic Relationship Specialty Start Date End Date Erum Quinones MD [address] [place] [id number] PCP - General Family Medicine 02/19/18 Aveanna 08/15/24 documented as of this encounter
--- OUTSIDE RECORDS SUMMARY | 2025-01-13 11:58 | XMS_ITS | Encounter Summary ---
Author Organization [employer] Address [address] [facility] [address] [place] [address] Care Team Providers Care Sand Carrier Name Role Phone Erum Quinones MD Primary Care Provider [phone] Reason for Visit * Reason Onset Date Comments Request For Order(s) 07/19/2023 Encounter Details Date Type Department Care Team ([facility] st Contact Info) Description 07/19/2023 Telephone [facility] MED[facility]INE [address] [place] [address] Erum Quinones MD [address] [place] [address] Request For Order(s) Social History Tobacco Use Types Packs/Day Years [...] encounter Miscellaneous Notes * Telephone Encounter - Jocelyne Son - 07/19/2023 11:09 AM EDT Tc from pt requesting a order for a CT Scan on left leg by insurance request. documented in this encounter Plan of Treatment Not on file documented as of this encounter Visit Diagnoses Not on filedocumented in this encounter Additional Health Concerns Assessment Noted Time PHQ-9 Depression Total Score: 0 11/17/19 23 10:44 AM EDT documented as of this encounter Care Teams Sand Carrier Relationship Specialty Start Date End Date Erum Quinones MD [address] [place] [id number] PCP - General Family Medicine 02/19/18 Roberto 08/15/24 documented as of this encounter
--- OUTSIDE RECORDS SUMMARY | 2025-01-13 11:58 | XMS_ITS | Encounter Summary ---
Author Organization [employer] Address [address] [facility] [address] [place] [address] Care Team Providers Care Metal Trim Erector Name Role Phone Erum Quinones MD Primary Care Provider [phone] Reason for Visit * Reason Comments Med Refill Encounter Details Date Type Department Care Team ([facility] st Contact Info) Description 08/26/2024 Refill [facility] MEDICINE [address] [place], [place] [phone] Erum Quinones MD [address] [place], [place] [phone] Social History Tobacco Use Types Packs/Day Years [...] AM EDT documented as of this encounter Functional Status * Over the past 2 weeks, how often have you been bothered by any of the following problems? Question Answer Date of Assessment Author Patient Health Questionnaire -2 Score 2 08/26/2024 9:05 AM Lindsey Bloom MA * Little interest or pleasure in doing things Answer Date of Assessment Author Several days 08/26/2024 9:05 AM Natty Bloom MA * Feeling down, depressed, or hopeless Answer Date of Assessment Author Several days 08/26/2024 9:05 AM Natty Bloom MA * Trouble falling or staying asleep, or sleeping too much Answer Date of Assessment Author Several days 08/26/2024 9:05 AM Natty Bloom MA * Feeling tired or having little energy Answer Date of Assessment Author Several days 08/26/2024 9:05 AM Natty Bloom [place] * Poor appetite or overeating Answer Date of Assessment Author Several days 08/26/2024 9:05 AM Natty Bloom MA * Feeling bad about yourself - or that you are a failure or have let yourself or your family down Answer Date of Assessment Author Several days 08/26/2024 9:05 AM Natty Bloom MA * Trouble concentrating on things, such as reading the newspaper or watching television Answer Date of Assessment Author Not at all 08/26/2024 9:05 AM Natty Bloom MA * Moving or speaking so slowly that other people could have noticed? Or the opposite - being so fidgety or restless that you have been moving around a lot more than usual. Answer Date of Assessment Author Not at all 08/26/2024 9:05 AM Natty Bloom MA * Thoughts that you would be better off or hurting yourself in some way Answer Date of Assessment Author Not at all 08/26/2024 9:05 AM Natty Bloom MA * Patient Health Questionnaire-9 Score Answer Date of Assessment Author 6 08/26/2024 9:05 AM Natty Bloom MA * Over the last 2 weeks, how often have you been bothered by any of the following problems? Question Answer Date of Assessment Author Feeling nervous, anxious, or on edge 1 08/26/2024 9:05 AM Lindsey Bloom MA Not being able to stop or control worrying 1 08/26/2024 9:05 AM Lindsey Bloom MA Worrying too much about different things 1 08/26/2024 9:05 AM Lindsey Bloom MA Trouble relaxing 1 08/26/2024 9:05 AM Natty Brunner MA Being so restless that it is hard to sit still 1 08/26/2024 9:05 AM Lindsey Bloom MA Becoming easily annoyed or irritable 0 08/26/2024 9:05 AM Lindsey Bloom MA Feeling afraid as if somethi ng awful might happen 0 08/26/2024 9:05 AM Lindsey Bloom MA CONCEPCIÓN-7 Total Score 5 08/26/2024 9:05 AM Natty Bloom MA documented as of this encounter Plan of Treatment Not on file documented as of this encounter Visit Diagnoses Not on filedocumented in this encounter Additional Health Concerns Assessment Noted Time PHQ-9 Depression Total Score: 6 08/27/19 25 9:05 AM EDT documented as of this encounter Care Teams Metal Trim Erector Relationship Specialty Start Date End Date Erum Quinones MD [address] [place] [address] PCP - General Family Medicine 02/19/18 Roberto 08/15/24 documented as of this encounter
--- OUTSIDE RECORDS SUMMARY | 2025-01-13 11:58 | XMS_ITS | Encounter Summary ---
Author Organization [employer] Address [address] [facility] [address] [place] [address] Care Team Providers Care Oracle Iam Consultant Name Role Phone Erum Quinones MD Primary Care Provider [phone] Reason for Visit * Reason Onset Date Comments Med Refill 06/25/2024 Encounter Details Date Type Department Care Team ([facility] st Contact Info) Description 06/25/2024 Telephone [facility] MEDICINE [address] [place], [place] [phone] Erum Quinones MD [address] [place], [place] [phone] Med Refill Social History Tobacco Use Types Packs/Day Years Used Date Smoking Tobacco: Never Passive Smoke Exposure: Never Smokeless Tobacco: Never Depression Answer Date Recorded Patient Health Questionnaire-9 Score 0 11/26/2023 Patient Health Questionnaire-9 Score 0 11/26/2023 Last PHQ-9: Questionnaire Data Not on file 1 Housing Stability Answer Date Recorded What is [...] Date Recorded Patient Health Questionnaire-2 Score 0 11/26/2023 Internet Access Answer Date Recorded Internet Access Q1 Yes 11/26/2023 Internet Access Q2 Not on file 11/26/2023 Comments Unknown Sex and Gender Information Value Date Recorded Sex Assigned at Female 12/19/2021 10:17 AM EDT Legal Sex Female 10:17 AM EDT Gender Identity Female 12/19/2021 10:17 AM EDT Sexual Orientation Straight 12/19/2021 10 :17 AM EDT documented as of this encounter Miscellaneous Notes * Telephone Encounter - Carri Gloria LPN - 06/25/2024 9:34 AM EDT Last seen 4 * Telephone Encounter - Amanda Lin - 06/25/2024 9:23 AM EDT TC from pt requesting medication refill. Medications needing refill : albuterol (2.5 MG/3ML) 0.083% nebulizer solution To be sent to: [id number] [place], [place] - [address] [place] [address] documented in this encounter Plan of Treatment Not on file documented as of this encounter Visit Diagnoses Not on filedocumented in this encounter Additional Health Concerns Assessment Noted Time PHQ-9 Depression Total Score: 0 11/26/19 24 11:40 AM EDT documented as of this encounter Care Teams Oracle Iam Consultant Relationship Specialty Start Date End Date Erum Quinones MD [address] [place] [phone] PCP - General Family Medicine 02/19/18 Av[place]olin 08/15/24 documented as of this encounter
--- OUTSIDE RECORDS SUMMARY | 2025-01-13 11:58 | XMS_ITS | Encounter Summary ---
Author Organization [employer] Address [address] [facility] [address] [place] [address] Care Team Providers Care Black Studies Professor Name Role Phone Erum Quinones MD Primary Care Provider [phone] Encounter Details Date Type Department Care Team ([facility] st Contact Info) Description 01/29/2023 Orders Only [facility] MEDICINE [address] [place], [place] [phone] Erum Quinones MD [address] [place], [place] [phone] Type 2 diabetes mellitus with hyperglycemia, without long-term current use of insulin ([facility]) (Primary Dx); Hypertension, unspecified type; Dyslipidemia; Other [...] hyperglycemia, without long-term current use of insulin ([facility]) VITAMIN B12/FOLATE, SERUM PANEL Routine 02/02/2023 10:34 AM EST Type 2 diabetes mellitus with hyperglycemia, without long-term current use of insulin ([facility]) TSH W/REFLEX TO FT4 Routine 02/02/2023 1 0:34 AM EST Hypertension, unspecified type LIPID PANEL WITH REFLEX TO DIRECT LDL Routine 02/02/2023 10:34 AM EST Type 2 diabetes mellitus with hyperglycemia, without long-term current use of insulin ([facility]) Dyslipidemia URIC ACID Routine 02/02/2023 10:34 AM EST Gout, unspecified cause, unspecified chronicity, unspecified site PTH, INTACT WITHOUT CALCIUM Routine 02/02/2023 10:34 AM EST Other osteoporosis without current pathological fracture COMPREHENSIVE METABOLIC PANEL Routine 02/02/2023 10:34 AM EST Type 2 diabetes mellitus with hyperglycemia, without long-term current use of insulin ([facility]) documented in this encounter Results * (ABNORMAL) Albumin, Random Urine W/Creatinine (02/02/2023 10:37 AM EST) Creatinine, Urine 81.69 mg/dL [facility] Microalbumin Urine 641.0 mg/L H [facility] Microalbum Creatinine Ratio Ur 784.6(H) <30 ug/mg cr [facility] Comment:Albumin/Creatinine R atio Reference Ranges: Normal: < 30 ug/mg creatinine Microalbuminuria: 30 - 300 ug/mg creatinineClinical Albuminuria: > 300 ug/mg creatinine Urine 02/02/2023 10:3 7 AM EST 02/02/2023 11:11 AM EST us Erum Quinones MD LAB URINE ORDERABLES Final Resul t Performing Organization Address City/[facility]/ZIP Co de Phone Number [facility] [address] [place] [phone] * TSH W/Reflex to FT4 (02/02/2023 10:34 AM EST) TSH reflex Free T4 1.51 0.32 - 4.0 uIU/mL [facility] Blood 02/02/2023 10:3 4 AM EST 02/02/2023 11:13 AM EST us Erum Quinones MD LAB BLOOD ORDERABLES Final Resul t Performing Organization Address City/[facility]/ZIP Co de Phone Number [facility] [address] [place] [phone] * (ABNORMAL) Lipid Panel with Reflex to Direct LDL (02/02/2023 10:34 AM EST) Triglycerides 128 <150 mg/dL [facility] Comment:Desirable Triglyceri de: less than 150 mg/dLBorderline High Triglyceride 150-199 mg/dLHigh Triglyceride: 200-499 mg/dLVery High Triglyceride: greater than or equal to 5OO mg/dL Cholesterol 248(H) <200 mg/dL [facility] Comment:Desirable Cholestero l: less than 200 mg/dLBorderline High Cholesterol: 200-239 mg/dLHigh Cholesterol: greater than 239 mg/dL LDL Cholesterol Calculated 177(H) <100 mg/dL [facility] Comment:Desirable LDL: less than 100 mg/dLNear Optimal/Above Optimal LDL: 110- 129 mg/dLBorderline High LDL: 130-159 mg/dLHigh LDL: 160-189 mg/dLVery High LDL: greater than or equal to 190 mg/dL HDL Cholesterol 46 >40 mg/dL [facility] Comment:Desirable HDL: great er than 40 mg/dL Note: This HDL assay may give artificially low results in patients with liver disease. Blood 02/02/2023 10:3 4 AM EST 02/02/2023 11:13 AM EST us Erum Quinones MD LAB BLOOD ORDERABLES Final Resul t [facility] [address] [place] [phone] * (ABNORMAL) Comprehensive Metabolic Panel (02/02/2023 10:34 AM EST) Sodium 141 135 - 145 mmol/L [facility] Potassium 4.1 3.3 - 5.1 mmol/L [facility] Chloride 105 96 - 108 mmol/L [facility] Carbon Dioxide 24 22 - 29 mmol/L [facility] Anion Gap 16 12 - 20 [facility] Urea Nitrogen (BUN) 27(H) 9 - 16 mg/dL [facility] Creatinine, Serum 0.73 0.5 - 1.4 mg/dL [facility] Estimated Glomerular Filt Rate >60 [facility] Comment:NOTE: For -Am erican individuals, multiply the result by 1.210.Chronic Kidney Disease: Estimated GFR < 60 mL/min/1.56c6Xrulep Kidney Disease: Estimated GFR < 15 mL/min/1.73m2 Glucose 185(H) 60 - 115 mg/dL [facility] Calcium 9.9 8.4 - 10.2 mg/dL [facility] Bilirubin, Total 0.4 0.0 - 1.0 mg/dL [facility] Aspartate Amino Transferase 18 5 - 31 U/L [facility] Alanine Aminotransferase 17 0 - 31 U/L [facility] Total Protein 8.2(H) 6.5 - 8.0 g/dL [facility] Albumin Level 4.0 3.5 - 5.0 g/dL [facility] Alkaline Phosphatase 144(H) 39 - 117 U/L [facility] Blood Venous blood specimen / Unknown 02/02/2023 10:34 AM EST 02/02/2023 11:13 AM EST Erum Quinones MD LAB BLOOD ORDERABLES Final Resul t Performing Organization Address City/State/[facility] Co de Phone Number [facility] [address] [place] [phone] * (ABNORMAL) Vitamin B12/Folate, Serum Panel (02/02/2023 10:34 AM EST) Vitamin B12 1,053(H) 200 - 900 pg/mL [facility] Comment:NORMAL 200-900 PG/M L INDETERMINATE 160-199 PG/ML DEFICIENT < 160 PG/ML Folate 8.2 > or = 4.0 ng/mL [facility] Comment:Reference Values:> o r = 4.0 ng/mL< 4.0 ng/mL suggests folate deficiency Methotrexate, aminopterin and folinic acid(leucovorin) are chemotherapeutic agents whose molecularstructures are similar to folate; therefore, the Architectfolate assay cannot be used for patients using these drugs. 02/02/2023 10:3 4 AM EST 02/02/2023 11:13 AM EST Erum Quinones MD LAB BLOOD ORDERABLES Final Resul t Performing Organization Address City/State/[facility] Co de Phone Number [facility] [address] [place] [phone] * PTH, Intact Without Calcium (02/02/2023 10:34 AM EST) Parathyroid Hormone, Intact 72.1 8.7 - 77.1 pg/mL [facility] Blood Venous blood specimen / Unknown 02/02/2023 10:34 AM EST 02/02/2023 11:13 AM EST us Erum Quinones MD LAB BLOOD ORDERABLES Final Resul t Performing Organization Address [facility] Co de Phone Number [facility] [address] [place] [phone] * (ABNORMAL) Uric acid (02/02/2023 10:34 AM EST) Uric Acid 6.6(H) 2.4 - 5.7 mg/dL [facility] Blood Venous blood specimen / Unknown 02/02/2023 10:34 AM EST 02/02/2023 11:13 AM EST us Erum Quinones MD LAB BLOOD ORDERABLES Final Resul t Performing Organization Address [facility] de Phone Number [facility] [address] [place] [phone] documented in this encounter Visit Diagnoses Diagnosis Type 2 diabetes mellitus with hyperglycemia, without long-term current use of insulin (HCC)- Primary Hypertension, unspecified type Dyslipidemia Other and unspecified hyperlipidemia Other osteoporosis without current pathological fracture Gout, unspecified cause, unspecified chronicity, unspecified site documented in this encounter Additional Health Concerns Assessment Noted Time PHQ-9 Depression Total Score: 0 11/17/19 23 10:44 AM EDT documented as of this encounter Care Teams Black Studies Professor Relationship Specialty Start Date End Date Erum Quinones MD [address] [place] [phone] PCP - General Family Medicine 02/19/18 Roberto 08/15/24 documented as of this encounter
--- OUTSIDE RECORDS SUMMARY | 2025-01-13 11:58 | XMS_ITS | Encounter Summary ---
Author Organization [facility] Address [address] [place] [address] Encounters * CPT with Rui Hammond at [employer] on 2024-07-26 { reasonForRequest : Patient has Knee and leg pain. wants help with it. , patientReports : , denies :[], chiefComplaints : Extremity Pain , pmh : Hypertension, Diabetes Mellitus Type 2, Asthma, Deep Vein Thrombosi s, Other , allergies : Penicillins, Gadolinium-Containing Contrast Media ,& quot;otherAllergies :null, painAssessment : Level 9 out of 10 , visitO utcome : , additionalComments : 78 y.o female complains of Extremity Pain\n\nCall completed with saw offbearer. \n\nPt calling for left knee pain, cant bear weight. She went to the ER 2 days ago, they found her to have calcification. She is waiting for ortho but not till september . \nShe was looking for pain medication and explained what we can offer her at this time. \nHer pain is a 9/10. She was prescribed topical but it is not helping, no discharge from the knee . \nShe does not have fever or chills, nausea or vomiting \nThe area is swollen , warm but not RED. She has blood clot in that leg and is taking eliquis . from a year ago. She is not having sob or chestpain. \nI provided information on the mobile health provider response time and advised the patient and/or caregiver to monitor reported signs and symptoms. I discussed the warning signs of when to seek emergency care. } [facility]12 dispatched to the address listed above for the report of a female democrat with extremity pain. Arrival on scene, patient was found inside apartment with another family member seated on couch, alert and oriented x4, patent airway, breathing non labored speaking in complete sentences, skin WPD in no obvious distress. +/= Chest rise. -SOB, -CP, -NVD, -Trauma, -Fever. GCS 15. Patient reports that about 2 weeks ago, she was walking up a stair case when she began to experience a sudden onset of pain to the medial portion of her left knee. MIH noted increased swelling to knee, no redness, normal skin temp, no open wounds noted, CMS intact. Patient reports pain upon weight bearing, any form of flexion or palpation. Patient reports that she went to the hospital about 2 days ago, had XRAY done which was clean, and prescribed topical Diclofenac which patient does not report any improvement with. Patient states that she has not taken any Tylenol and was instructed not to take NSAID by her PCP due to Eliquis. Patient vital signs obtained as noted. [facility] consulted, advised that he would send pres cription for lidocaine patch and Tylenol to preferred pharmacy, provided orders for 500mg Tylenol PO. 500mg Tylenol PO as listed above administered without incident, six patient rights verified. Red flags discussed with patient, advised to call 911 with any life threatening symptoms. SC 12 Clear. IV_(FLUIDS_AND/OR_MEDICATION), MEDICATION_IM, ORAL_MEDICATION, WOUND_CARE, ORTHOSTATIC_VITAL_SIGNS Written by Rui Hammond on 2024-07-26
--- OUTSIDE RECORDS SUMMARY | 2025-01-13 11:58 | XMS_ITS | Clinical Summary ---
Author Organization [employer] Address [address] [facility] [address] [place] [address] Care Team Providers Care Environmental Laboratory Technician Name Role Phone Brant Quinones MD Primary Care Provider [phone] Allergies Active Allergy Reactions Criticality Noted Date Comments Alendronate 10/24/2018 Other Reaction(s): Stomach cramps Gadolinium Unknown 05/05/2024 Penicillins Rash Low 03/07/2022 Statins 07/30/2014 Medications docusate sodium (Colace) 100 MG capsule TAKE 1 CAPSULE BY MOUTH EVERY DAY AT BEDTIME NEEDED 022 Active FreeStyle lancets USE THREE TIMES DAILY 022 Active polyethylene glycol, PEG, 3350 (Glycolax) 17 GM/SCOOP powder 022 Active albuterol (ProAir HFA) 108 (90 Base) MCG/ACT inhaler Inhale 2 puffs. 019 Active fluticasone furoate (Arnuity Ellipta) 100 MCG/ACT inhaler INHALE 1 PUFF BY MOUTH ONCE DAILY. RINSE MOUTH AFTER USE. 30 each 024 Active dapagliflozin (Farxiga) 5 MG Take 1 tablet (5 mg) by mouth in the morning. 90 tablet 3 024 Active lidocaine (Lidoderm) 5 % patchIndication s:Chronic low back pain without sciatica, unspecified back pain laterality Apply 1 patch topically Once per day. Remove & discard patch within 12 hours or as directed by MD. 30 patch 024 Active Blood Glucose Monitoring Suppl (FreeStyle Lite) w/Device kit 1 Device 3 times daily. Check blood sugar three times daily and as needed 1 kit 025 Active losartan (Cozaar) 100 MG tabletIndicatio ns:Primary hypertension TAKE 1 TABLET(100 MG) BY MOUTH IN THE MORNING 90 tablet 3 025 Active metFORMIN XR (Glucophage-XR) 500 MG 24 hr tabletIndicatio ns:Type 2 diabetes mellitus without complication, without long-term current use of insulin (HCC) TAKE 2 TABLETS BY MOUTH WITH BREAKFAST AND EVENING MEAL 360 tablet 3 025 Active albuterol (2.5 MG/3ML) 0.083% nebulizer solutionIndicat ions:Moderate persistent asthma without complication Take 3 mL (2.5 mg) by nebulization every 4 (four) hours if needed for wheezing or shortness of breath (Maximum 4 treatments per day). 75 mL 1 025 2025 Active cholecalciferol (Vitamin D-3) 25 MCG (1000 UT) capsule TAKE 1 CAPSULE BY MOUTH IN THE MORNING 90 capsule 1 025 Active omeprazole (PriLOSEC) [address] capsule TAKE 1 CAPSULE BY MOUTH EVERY DAY NEEDED FOR HEARTBURN 90 capsule 1 025 Active diazePAM (Valium) 5 MG tablet TAKE 1 TABLET(5 MG) BY MOUTH EACH DAY NEEDED FOR ANXIETY 30 tablet 025 Active glucose blood (FREESTYLE LITE) test stripIndication s:Type 2 diabetes mellitus with hyperglycemia, without long-term current use of insulin (HCC) DIRECTED TO TEST BLOOD SUGAR THREE TIMES DAILY 100 strip 11 025 Active rosuvastatin (Crestor) 10 MG tablet TAKE 1 TABLET(10 MG) BY MOUTH AT BEDTIME 90 tablet 3 025 Active celecoxib (CeleBREX) 100 MG capsule Take 1 tablet by mouth once a day as needed for severe pain. Do not take every day. 30 capsule 1 025 Active Diclofenac Sodium 1 % gel Apply topically once or twice daily as needed for pain 350 g 1 025 Active traMADol (Ultram) 50 MG tabletIndicatio ns:Chronic pain of left knee Take 1 tablet (50 mg) by mouth if needed at bedtime for severe pain. 30 tablet 025 Active loratadine (Claritin) 10 MG tabletIndicatio ns:Allergic rhinitis, unspecified seasonality, unspecified trigger TAKE 1 TABLET BY MOUTH EVERY MORNING 90 tablet 1 Active apixaban (Eliquis) 5 MG tablet Take 1 tablet (5 mg) by mouth 2 times daily. 180 tablet 3 Active dilTIAZem CD (Cardizem CD) 300 MG 24 hr capsuleIndicati ons:Dyslipidemi a TAKE 1 CAPSULE(300 MG) BY MOUTH IN THE MORNING 90 capsule Active Ozempic, 0.25 or 0.5 MG/DOSE, 2 MG/3ML solution pen-injector Inject 0.25 mg under the skin every 7 (seven) days. 2024 Discontinued(M ed list cleanup (will not trigger notification to Pharmacy)) dilTIAZem CD (Cardizem CD) 300 MG 24 hr capsuleIndicati ons:Dyslipidemi a TAKE 1 CAPSULE(300 MG) BY MOUTH IN THE MORNING 90 capsule 025 2024 Discontinued Active Problems Problem Noted Date Diagnosed Date Chronic pain of left knee 09/23/2024 Assessment & Plan (09/23/2024 10:35 AM EDT): - 07/27/24 X-ray showed: Medial soft tissue swelling; large coarse calcification in the region of the superior portion of the MCL, unchanged from the prior. This could be calcification related to prior injury. - Patient was seen in the ED and was in a short term 25 due to left knee pain in July 2024. - Patient completed of home physical therapy. Encouraged to continue home exercise. Generalized abdominal pain 06/17/2024 Assessment & Plan (06/22/2024 4:49 PM EDT): - Pt had weight loss and has a history of DVT 2x - CMP was normal recently; CBC last year showed mild leukocytosis (will repeat) - Will evaluate with CT scan - Consider GI referral Microalbuminuria 03/06/2024 Assessment & Plan (03/06/2024 5:38 AM EST): - due to diabetic nephropathy - 05/09/22 UACR 424 - 02/02/23 UACR 784 - 03/03/24 UACR 981 - Kidney Failure Risk: % at 1 years; % at 3 years - encouraged to improve glycemic control - Rx dapagliflozin (Farxiga) Chronic low back pain without sciatica Assessment & Plan (09/23/2024 10:31 AM EDT): - currently taking Tylenol for pain - advised continuing warm compresses - lidoderm patch prescribed previously - offered PT to improve strength and mobility, which she had declined Assessment & Plan (12/03/2023 5:17 AM EDT): - currently taking Tylenol for pain - advised continuing warm compresses - lidoderm patch prescribed previously - offered PT to improve strength and mobility DVT (deep venous thrombosis) 08/21/2023 Assessment & Plan (12/22/2024 9:50 AM EST): - 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 The proximal portion of the popliteal venous thrombosis. - treated for DVT with apixaban from Feb to Sep 2019, stopped after evaluated by gyro compass tester with no change in LE venous doppler in Sep 2019 - followed by gyro compass tester, Dr. 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 The proximal portion of the popliteal venous thrombosis. - treated for DVT with apixaban from Feb to Sep 2019, stopped after evaluated by gyro compass tester with no change in LE venous doppler in Sep 2019 - followed by gyro compass tester, Dr. 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 The proximal portion of the popliteal venous thrombosis. - treated for DVT with apixaban from Feb to Sep 2019, stopped after evaluated by gyro compass tester with no change in LE venous doppler in Sep 2019 - followed by gyro compass tester, Dr. 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 The proximal portion of the popliteal venous thrombosis. 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 The proximal portion of the popliteal venous thrombosis. - treated for DVT with apixaban from Feb to Sep 2019, stopped after evaluated by gyro compass tester with no change in LE venous doppler in Sep 2019 - seen by gyro compass tester on 08/10/23, recommended to continue apixaban 5 mg bid indefinitely - thrombophilia work-up is not indicated Left elbow pain 06/09/2023 Assessment & Plan (06/09/2023 6:31 AM EDT): - most likely left lateral epicondylitis - patient would like to receive steroid injection; will refer to ortho - activity modification; ice; topical NSAID Overweight (BMI 25.0-29.9) 08/22/2022 Assessment & Plan (08/22/2022 12:07 PM EDT): - continue working on lifestyle modification Urinary incontinence 08/21/2022 Assessment & Plan (12/22/2024 9:54 AM EST): - using pads / panty liners - patient requests following items today: wipes; liners; disposable under pads (chux). - using pads / panty liners - patient requests following items today: wipes; liners; disposable under pads (chux). All DME scripts were written as requested - Today patient states she has not received heavy (thick) pads, wipes, and chux. Will check its status. Assessment & Plan (09/23/2024 10:13 AM EDT): - using pads / panty liners - patient requests following items today: wipes; liners; disposable under pads (chux). Assessment & Plan (09/07/2024 3:45 PM EDT): - using pads / panty liners - patient requests 6 packs of pantyliners / pads. 3 for heavy. 3 for light. Assessment & Plan (12/03/2023 5:13 AM EDT): - using pads / panty liners - patient still has not received incontinence supply yet. Will check its status. 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 Assessment & Plan (06/18/2024 10:06 PM EDT): - previously tried PT - previously seen by neurologist - pt declines further evaluation at this time Assessment & Plan (06/09/2023 6:18 AM EDT): - previously tried PT - previously seen by neurologist - pt declines further evaluation at this time Assessment & Plan (08/21/2022 11:09 AM EDT): - previously tried PT - previously seen by neurologist - pt declines further evaluation at this time Assessment & Plan (06/04/2022 4:04 PM EDT): - previously tried PT - previously seen by neurologist - pt declines further evaluation at this time Osteoporosis 02/01/2017 Assessment & Plan (08/26/2024 9:13 AM EDT): Previously on Fosamax, self-discontinued due to GI side effect DEXA on 11/27/18 showed the lowest T-score of -3.7 in the L femur. 10-year fracture risk is 24.5%, hip fracture 17%. DEXA on 11/24/16 showed the lowest T-score was -3.6 in the L-hip, 10-yr fracture risk 29%. DEXA on 04/06/22 showed the lowest T-score -4.1 in femur. Discussed about fall-precaution / prevention Encouraged to continue weight-bearing exercise Referred to clothes presser previously for possible Prolia Tx, Pt declined any pharmacological Tx or consult with specialist. Assessment & Plan (06/18/2024 10:08 PM EDT): Previously on Fosamax, self-discontinued due to GI side effect DEXA on 11/27/18 showed the lowest T-score of -3.7 in the L femur. 10-year fracture risk is 24.5%, hip fracture 17%. DEXA on 11/24/16 showed the lowest T-score was -3.6 in the L-hip, 10-yr fracture risk 29%. DEXA on 04/06/22 showed the lowest T-score -4.1 in femur. Discussed about fall-precaution / prevention Encouraged to continue weight-bearing exercise Referred to clothes presser previously for possible Prolia Tx, Pt declined any pharmacological Tx or consult with specialist. Assessment & Plan (08/25/2023 7:30 AM EDT): Previously on Fosamax, self-discontinued due to GI side effect DEXA on 11/27/18 showed the lowest T-score of -3.7 in the L femur. 10-year fracture risk is 24.5%, hip fracture 17%. DEXA on 11/24/16 showed the lowest T-score was -3.6 in the L-hip, 10-yr fracture risk 29%. DEXA on 04/06/22 showed the lowest T-score -4.1 in femur. Discussed about fall-precaution / prevention Encouraged to continue weight-bearing exercise Referred to clothes presser previously for possible Prolia Tx, Pt declined any pharmacological Tx or consult with specialist. Assessment & Plan (06/09/2023 6:22 AM EDT): Previously on Fosamax, self-discontinued due to GI side effect DEXA on 11/27/18 showed the lowest T-score of -3.7 in the L femur. 10-year fracture risk is 24.5%, hip fracture 17%. DEXA on 11/24/16 showed the lowest T-score was -3.6 in the L-hip, 10-yr fracture risk 29%. DEXA on 04/06/22 showed the lowest T-score -4.1 in femur. Discussed about fall-precaution / prevention Encouraged to continue weight-bearing exercise Referred to clothes presser previously for possible Prolia Tx, Pt declined any pharmacological Tx or consult with specialist. Assessment & Plan (11/16/2022 11:25 AM EDT): Previously on Fosamax, self-discontinued due to GI side effect DEXA on 11/27/18 showed the lowest T-score of -3.7 in the L femur. 10-year fracture risk is 24.5%, hip fracture 17%. DEXA on 11/24/16 showed the lowest T-score was -3.6 in the L-hip, 10-yr fracture risk 29%. DEXA on 04/06/22 showed the lowest T-score -4.1 in femur. Discussed about fall-precaution / prevention Encouraged to continue weight-bearing exercise Referred to clothes presser previously for possible Prolia Tx, Pt declined any pharmacological Tx or consult with specialist. Assessment & Plan (08/21/2022 11:06 AM EDT): Previously on Fosamax, self-discontinued due to GI side effect DEXA on 11/27/18 showed the lowest T-score of -3.7 in the L femur. 10-year fracture risk is 24.5%, hip fracture 17%. DEXA on 11/24/16 showed the lowest T-score was -3.6 in the L-hip, 10-yr fracture risk 29%. DEXA on 04/06/22 showed the lowest T-score -4.1 in femur. Discussed about fall-precaution / prevention Encouraged to continue weight-bearing exercise Referred to clothes presser previously for possible Prolia Tx, Pt declined any pharmacological Tx or consult with specialist. Assessment & Plan (06/04/2022 4:11 PM EDT): Previously on Fosamax, self-discontinued due to GI side effect DEXA on 11/27/18 showed the lowest T-score of -3.7 in the L femur. 10-year fracture risk is 24.5%, hip fracture 17%. DEXA on 11/24/16 showed the lowest T-score was -3.6 in the L-hip, 10-yr fracture risk 29%. DEXA on 04/06/22 showed the lowest T-score -4.1 in femur. Discussed about fall-precaution / prevention Encouraged to continue weight-bearing exercise Referred to clothes presser previously for possible Prolia Tx, Pt declined any pharmacological Tx or consult with specialist. Assessment & Plan (03/10/2022 6:51 AM EST): Previously on Fosamax, self-discontinued due to GI side effect DEXA on 11/27/18 showed the lowest T-score of -3.7 in the L femur. 10-year fracture risk is 24.5%, hip fracture 17%. DEXA on 11/24/16 showed the lowest T-score was -3.6 in the L-hip, 10-yr fracture risk 29%. Discussed about fall-precaution / prevention Referred to clothes presser for possible Prolia Tx, Pt declined any pharmacological Tx or consult with specialist. Will repeat DEXA Asthma 11/04/2015 Assessment & Plan (12/11/2024 11:25 PM EDT): - continue fluticasone (Arnuity) as maintenance - continue albuterol HFA and neb prn Assessment & Plan (06/18/2024 10:06 PM EDT): - continue fluticasone (Arnuity) as maintenance - continue albuterol HFA and neb prn Assessment & Plan (03/10/2024 7:40 AM EST): - continue fluticasone (Arnuity) as maintenance - continue albuterol HFA and neb prn Assessment & Plan (08/24/2023 2:06 PM EDT): - continue fluticasone (Arnuity) as maintenance - continue albuterol HFA and neb prn Assessment & Plan (06/09/2023 6:20 AM EDT): - continue fluticasone (Arnuity) as maintenance - continue albuterol HFA and neb prn Assessment & Plan (11/16/2022 11:24 AM EDT): - continue Flovent as maintenance - continue albuterol HFA and neb prn Assessment & Plan (08/22/2022 12:06 PM EDT): - continue Flovent as maintenance - continue albuterol HFA and neb prn - pt has a nebulizer machine, but not solution. Will prescribe today Type 2 diabetes mellitus 11/02/2014 Assessment & Plan (12/22/2024 9:52 AM EST): -A1C 7.9% on 12/09/24, the exact same as 08/26/24, improved from 8.7% on 06/17/24. Likely due to healthier diet while she was in rehab. -Continue SMBG. -Work on lifestyle modifications. -Continue Metformin 1g BID -Continue dapagliflozin (Farxiga) 5 mg at bedtime - Prescribed semaglutide 0.25 mg weekly; questionable adherence. Last dispensed in February 2024 - Treatment Hx: glipizide 5mg BID (questionable adherence according to refill history). Self-discontinued Jardiance for a while due to suspected cause of dizziness, then resumed SGLT2i after her daughter recommended). Apparently self discontinued semaglutide. Reviewed and updated diabetes care guideline. Last eye exam: [facility] eye care in April 2024 no diabetic retinopathy Last foot exam: 08/26/24, slightly decreased sensation due to Polio, left leg DVT Last microalbumin test: 06/17/24 - 654.5 Last lipid profile: 03/03/24 TRIG 138; CHOL 119; LDL 56; HDL 36 Assessment & Plan (09/18/2024 10:14 PM EDT): -A1C 7.9% on 08/26/24, improved from 8.7% on 06/17/24. Likely due to healthier diet while she was in rehab. -Continue SMBG. -Work on lifestyle modifications. -Continue Metformin 1g BID -Continue dapagliflozin (Farxiga) 5 mg at bedtime - Continue semaglutide 0.25 mg weekly; questionable adherence - Treatment Hx: glipizide 5mg BID (questionable adherence according to refill history). Self-discontinued Jardiance for a while due to suspected cause of dizziness, then resumed SGLT2i after her daughter recommended). Reviewed and updated diabetes care guideline. Last eye exam: [facility] eye care in April 2024 no diabetic retinopathy Last foot exam: 08/26/24, slightly decreased sensation due to Polio, left leg DVT Last microalbumin test: 06/17/24 - 654.5 Last lipid profile: 03/03/24 TRIG 138; CHOL 119; LDL 56; HDL 36 Last dental exam: Immunizations: Up to date Assessment & Plan (09/07/2024 3:44 PM EDT): -A1C 7.9% on 08/26/24, improved from 8.7% on 06/17/24. Likely due to healthier diet while she was in rehab. -Continue SMBG. -Work on lifestyle modifications. -Continue Metformin 1g BID -Continue dapagliflozin (Farxiga) 5 mg at bedtime - Continue semaglutide 0.25 mg weekly; questionable adherence - Treatment Hx: glipizide 5mg BID (questionable adherence according to refill history). Self-discontinued Jardiance for a while due to suspected cause of dizziness, then resumed SGLT2i after her daughter recommended). Reviewed and updated diabetes care guideline. Last eye exam: [facility] eye care in April 2024 no diabetic retinopathy Last foot exam: 08/26/24, slightly decreased sensation due to Polio, left leg DVT Last microalbumin test: 06/17/24 - 654.5 Last lipid profile: 03/03/24 TRIG 138; CHOL 119; LDL 56; HDL 36 Last dental exam: Immunizations: Up to date Assessment & Plan (06/18/2024 10:15 PM EDT): -A1C 8.7% on 06/17/24, decrease from 10.2% -Continue diligent SMBG. -Work on lifestyle modifications. -Continue Metformin 1g BID -Continue dapagliflozin (Farxiga) 5 mg at bedtime (she states she recently started after her daughter recommended) -Start GLP1RA at low dose - Treatment Hx: glipizide 5mg BID (questionable adherence according to refill history). Self-discontinued Jardiance for a while due to suspected cause of dizziness, then resumed after her daughter recommended). Reviewed and updated diabetes care guideline. Last eye exam: 12/16/19, no diabetic retinopathy. b/l cataract. Next appt in 2023 Last foot exam: 11/26/23, slightly decreased sensation due to Polio, left leg DVT Last microalbumin test: 06/17/24 - 654.5 Last lipid profile: 03/03/24 TRIG 138; CHOL 119; LDL 56; HDL 36 Last dental exam: Immunizations: Up to date Assessment & Plan (03/11/2024 9:30 AM EST): -A1C 10.2%, trending up -Continue diligent SMBG. -Work on lifestyle modifications. -Continue Metformin 1g BID -Continue dapagliflozin (Farxiga) 5 mg at bedtime (she states she recently started after her daughter recommended) -Start GLP1RA at low dose - Treatment Hx: glipizide 5mg BID (questionable adherence according to refill history). Self-discontinued Jardiance for a while due to suspected cause of dizziness, then resumed after her daughter recommended). Reviewed and updated diabetes care guideline. Last eye exam: 12/16/19, no diabetic retinopathy. b/l cataract. Next appt in 2023 Last foot exam: 11/26/23, slightly decreased sensation due to Polio, left leg DVT Last microalbumin test: 03/03/24 Last lipid profile: 03/03/24 Last dental exam: Immunizations: Up to date Assessment & Plan (03/06/2024 5:35 AM EST): >>ASSESSMENT AND PLAN FOR TYPE 2 DIABETES MELLITUS ([facility]) WRITTEN ON 12/03/2023 5:15 AM BY BRANT QUINONES MD -A1C 8.8% which is increased from previous 8.4% 3 months ago. -Continue diligent SMBG. -Work on lifestyle modifications. -Continue Metformin 1g BID -Continue dapagliflozin (Farxiga) 5 mg at bedtime (she states she recently started after her daughter recommended) - Treatment Hx: glipizide 5mg BID (questionable adherence according to refill history). Discontinued Jardiance due to suspected cause of dizziness. Reviewed and updated diabetes care guideline. Last eye exam: 12/16/19, no diabetic retinopathy. b/l cataract. Next appt in 2023 Last foot exam: 11/26/23, slightly decreased sensation due to Polio, left leg DVT Last microalbumin test: 02/02/23 UACR 784 Last lipid profile: 02/02/23 TC 246; TG 130; HDL 47; LDL 173 Last dental exam: Immunizations: Up to date >>ASSESSMENT AND PLAN FOR TYPE 2 DIABETES MELLITUS WITH MICROALBUMINURIA, WITHOUT LONG-TERM CURRENT USE OF INSULIN ([facility]) WRITTEN ON 12/03/2023 5:28 AM BY BRANT QUINONES MD - 05/09/22 UACR 424 - 02/02/23 UACR 784 - Kidney Failure Risk: 0.24% at 1 years; 0.77% at 3 years - encouraged to improve glycemic control - Rx dapagliflozin (Farxiga) Assessment & Plan (03/06/2024 5:35 AM EST): >>ASSESSMENT AND PLAN FOR TYPE 2 DIABETES MELLITUS ([facility]) WRITTEN ON 08/25/2023 7:38 AM BY BRANT QUINONES MD -A1C 8% for last 1 year -Continue diligent SMBG. -Work on lifestyle modifications. -Continue Metformin 1g BID -Continue dapagliflozin (Farxiga) 5 mg at bedtime (she states she recently started after her daughter recommended) - Treatment Hx: glipizide 5mg BID (questionable adherence according to refill history). Reviewed and updated diabetes care guideline. Last eye exam: 12/16/19, no diabetic retinopathy. b/l cataract. Next appt in 2023 Last foot exam: 11/16/22 Last microalbumin test: 02/02/23 UACR 784 Last lipid profile: 02/02/23 TC 246; TG 130; HDL 47; LDL 173 Last dental exam: Immunizations: Up to date >>ASSESSMENT AND PLAN FOR TYPE 2 DIABETES MELLITUS WITH MICROALBUMINURIA, WITHOUT LONG-TERM CURRENT USE OF INSULIN ([facility]) WRITTEN ON 08/25/2023 7:31 AM BY BRANT QUINONES MD - 05/09/22 UACR 424 - 02/02/23 UACR 784 - encouraged to improve glycemic control - Rx dapagliflozin (Farxiga) Assessment & Plan (03/06/2024 5:35 AM EST): >>ASSESSMENT AND PLAN FOR TYPE 2 DIABETES MELLITUS ([facility]) WRITTEN ON 06/09/2023 6:27 AM BY BRANT QUINONES MD -A1C 8.6% on 11/16/22, slight-increase from 8.3% on 08/21/22 -Continue diligent SMBG. -Work on lifestyle modifications. -Continue Metformin 1g BID -Start dapagliflozin (Farxiga) 5 mg qhs - Treatment Hx: glipizide 5mg BID (questionable adherence according to refill history). Reviewed and updated diabetes care guideline. Last eye exam: 12/16/19, no diabetic retinopathy. b/l cataract. Next appt in 2023 Last foot exam: 11/16/22 Last microalbumin test: 02/02/23 UACR 784 Last lipid profile: 02/02/23 TC 246; TG 130; HDL 47; LDL 173 Last dental exam: Immunizations: Up to date >>ASSESSMENT AND PLAN FOR TYPE 2 DIABETES MELLITUS WITH MICROALBUMINURIA, WITHOUT LONG-TERM CURRENT USE OF INSULIN (CMS/[facility]) WRITTEN ON 06/09/2023 6:24 AM BY BRANT QUINONES MD - 05/09/22 UACR 424 - 02/02/23 UACR 784 - encouraged to improve glycemic control - Rx dapagliflozin (Farxiga) Assessment & Plan (03/06/2024 5:35 AM EST): >>ASSESSMENT AND PLAN FOR TYPE 2 DIABETES MELLITUS (CMS/HCC) WRITTEN ON 02/13/2023 5:31 AM BY BRANT QUINONES MD -A1C 8.6% on 11/16/22, slight-increase from 8.3% on 08/21/22 -Continue diligent SMBG. -Work on lifestyle modifications. -Continue Metformin 1g BID -Continue glipizide 5mg BID (questionable adherence according to refill history). Reviewed and updated diabetes care guideline. Last eye exam: 12/16/19, no diabetic retinopathy. b/l cataract. Next appt in 2023 Last foot exam: 11/16/22 Last microalbumin test: 02/02/23 UACR 784 Last lipid profile: 02/02/23 TC 246; TG 130; HDL 47; LDL 173 Last dental exam: Immunizations: Up to date >>ASSESSMENT AND PLAN FOR TYPE 2 DIABETES MELLITUS WITH MICROALBUMINURIA, WITHOUT LONG-TERM CURRENT USE OF INSULIN (CMS/HCC) WRITTEN ON 02/13/2023 5:30 AM BY BRANT QUINONES MD - 05/09/22 UACR 424 - 02/02/23 UACR 784 - encouraged to improve glycemic control Assessment & Plan (03/06/2024 5:35 AM EST): >>ASSESSMENT AND PLAN FOR TYPE 2 DIABETES MELLITUS ([facility]) WRITTEN ON 11/16/2022 11:26 AM BY MARGARITA MURPHY -A1C 8.6% on 11/16/22, slight-increase from 8.3% on 08/21/22 -Continue diligent SMBG. -Work on lifestyle modifications. -Continue Metformin 1g BID -Continue glipizide 5mg BID (questionable adherence according to refill history). Reviewed and updated diabetes care guideline. Last eye exam: 12/16/19, no diabetic retinopathy. b/l cataract. Next appt in 2023 Last foot exam: 11/16/22 Last microalbumin test: 05/09/22 UACR 424, worsened from 07/05/21 UACR 187 Last lipid profile: 05/09/22 TC 249; TG 106; HDL 49; LDL 177 Last dental exam: Immunizations: Up to date >>ASSESSMENT AND PLAN FOR TYPE 2 DIABETES MELLITUS WITH MICROALBUMINURIA, WITHOUT LONG-TERM CURRENT USE OF INSULIN ([facility]) WRITTEN ON 11/16/2022 11:26 AM BY MARGARITA MURPHY - 05/09/22 UACR 424 - 05/09/22 Na 139; K 5.0; Bicarb 26; BUN 36; Scr 0.8 - repeat microalbumin test in 6 mo - encouraged to improve glycemic control Assessment & Plan (03/06/2024 5:35 AM EST): >>ASSESSMENT AND PLAN FOR TYPE 2 DIABETES MELLITUS ([facility]) WRITTEN ON 08/21/2022 11:07 AM BY MARGARITA MURPHY -A1C 8.3% on 08/21/22, improved from 9.5% on 05/09/22 -Continue diligent SMBG. -Work on lifestyle modifications. -Continue Metformin 1g BID -Continue glipizide 5mg BID (questionable adherence according to refill history). Reviewed and updated diabetes care guideline. Last eye exam: 12/16/19, no diabetic retinopathy. b/l cataract. Next appt in 2023 Last foot exam: 05/23/22 Last microalbumin test: 05/09/22 UACR 424, worsened from 07/05/21 UACR 187 Last lipid profile: 05/09/22 TC 249; TG 106; HDL 49; LDL 177 Last dental exam: Immunizations: Up to date >>ASSESSMENT AND PLAN FOR TYPE 2 DIABETES MELLITUS WITH MICROALBUMINURIA, WITHOUT LONG-TERM CURRENT USE OF INSULIN ([facility]) WRITTEN ON 08/21/2022 11:08 AM BY MARGARITA MURPHY - 05/09/22 UACR 424 - 05/09/22 Na 139; K 5.0; Bicarb 26; BUN 36; Scr 0.8 - repeat microalbumin test in 6 mo - encouraged to improve glycemic control Assessment & Plan (03/06/2024 5:35 AM EST): >>ASSESSMENT AND PLAN FOR TYPE 2 DIABETES MELLITUS ([facility]) WRITTEN ON 06/04/2022 4:12 PM BY BRANT QUINONES MD -A1C 9.5%, worsened from 7.1%.on 07/05/21 -Continue diligent SMBG. -Work on lifestyle modifications. -Continue Metformin 1g BID -Continue glipizide 5mg BID (questionable adherence according to refill history). Reviewed and updated diabetes care guideline. Last eye exam: 12/16/19, no diabetic retinopathy. b/l cataract. Next appt in 2023 Last foot exam: 05/23/22 Last microalbumin test: 05/09/22 UACR 424, worsened from 07/05/21 UACR 187 Last lipid profile: 05/09/22 TC 249; TG 106; HDL 49; LDL 177 Last dental exam: Immunizations: Up to date >>ASSESSMENT AND PLAN FOR TYPE 2 DIABETES MELLITUS WITH MICROALBUMINURIA, WITHOUT LONG-TERM CURRENT USE OF INSULIN ([facility]) WRITTEN ON 06/04/2022 4:14 PM BY RBANT QUINONES MD - 05/09/22 UACR 424 - 05/09/22 Na 139; K 5.0; Bicarb 26; BUN 36; Scr 0.8 - repeat microalbumin test in 6 mo - encouraged to improve glycemic control Assessment & Plan (03/10/2022 6:55 AM EST): -A1C 7.1%.on 07/05/21, likely has worsened -Continue diligent SMBG. -Work on lifestyle modifications. -Continue Metformin 1g BID -Continue glipizide 5mg BID (questionable adherence according to refill history). Reviewed and updated diabetes care guideline. Last eye exam: 12/16/19, no diabetic retinopathy. b/l cataract. Next appt in 2023 Last foot exam: 04/06/21 Last microalbumin test: 07/05/21 UACR 187 Last lipid profile: 07/05/21 TC 238; TG 92; LDL 173; HDL 47 Last dental exam: Immunizations: Up to date Allergic rhinitis 04/28/2014 Panic disorder 04/28/2014 Assessment & Plan (06/18/2024 10:12 PM EDT): - continue judicious use of diazepam prn Assessment & Plan (03/11/2024 9:30 AM EST): - continue judicious use of diazepam prn Assessment & Plan (11/30/2023 4:07 PM EDT): - continue judicious use of diazepam prn Assessment & Plan (06/04/2022 4:15 PM EDT): - continue judicious use of diazepam prn Aortic valve stenosis 08/28/2013 Assessment & Plan (12/22/2024 9:49 AM EST): - Most recent TTE on 09/19/21 TTE Normal LVSF with grade 2 diastolic dysfunction. EF 60-65%. Early aortic stenosis. - Heart murmur is likely due to aortic stenosis / sclerosis - Follow up with plate cutter every 1-2 years, last seen in November 2024 Assessment & Plan (06/18/2024 10:06 PM EDT): - Most recent TTE on 09/19/21 TTE Normal LVSF with grade 2 diastolic dysfunction. EF 60-65%. Early aortic stenosis. - Heart murmur is likely due to aortic stenosis / sclerosis - Follow up with plate cutter every 1-2 years Assessment & Plan (11/30/2023 4:08 PM EDT): - Most recent TTE on 09/19/21 TTE Normal LVSF with grade 2 diastolic dysfunction. EF 60-65%. Early aortic stenosis. - Heart murmur is likely due to aortic stenosis / sclerosis - Follow up with plate cutter every 1-2 years Assessment & Plan (08/25/2023 7:29 AM EDT): - Most recent TTE on 09/19/21 TTE Normal LVSF with grade 2 diastolic dysfunction. EF 60-65%. Early aortic stenosis. - Heart murmur is likely due to aortic stenosis / sclerosis - Follow up with plate cutter every 1-2 years Assessment & Plan (06/09/2023 6:20 AM EDT): - Most recent TTE on 09/19/21 TTE Normal LVSF with grade 2 diastolic dysfunction. EF 60-65%. Early aortic stenosis. - Heart murmur is likely due to aortic stenosis / sclerosis - Follow up with plate cutter every 1-2 years Assessment & Plan (11/16/2022 11:17 AM EDT): - Most recent TTE on 09/19/21 TTE Normal LVSF with grade 2 diastolic dysfunction. EF 60-65%. Early aortic stenosis. - Heart murmur is likely due to aortic stenosis / sclerosis - Follow up with plate cutter every 1-2 years Assessment & Plan (08/21/2022 11:04 AM EDT): - Most recent TTE on 09/19/21 TTE Normal LVSF with grade 2 diastolic dysfunction. EF 60-65%. Early aortic stenosis. - Heart murmur is likely due to aortic stenosis / sclerosis - Follow up with plate cutter every 1-2 years Assessment & Plan (06/04/2022 5:33 PM EDT): - Most recent TTE on 09/19/21 TTE Normal LVSF with grade 2 diastolic dysfunction. EF 60-65%. Early aortic stenosis. - Heart murmur is likely due to aortic stenosis / sclerosis - Follow up with plate cutter every 1-2 years Assessment & Plan (03/10/2022 6:50 AM EST): - Most recent TTE on 08/26/19. Normal LVEF 60-65%. Increased gradient across AV, no significant aortic stenosis. - Heart murmur is likely due to aortic stenosis / sclerosis - Follow up with plate cutter every 1-2 years Dyslipidemia 12/07/2011 Assessment & Plan (12/11/2024 11:21 PM EDT): Last lipid profile: 03/03/24 - TRIG 138; CHOL 119; LDL 56; HDL 36 Current medication: Rosuvastatin 10 mg at bedtime Continue working on lifestyle modifications Continue improving adherence to rosuvastatin Assessment & Plan (09/18/2024 10:13 PM EDT): Last lipid profile: 03/03/24 - TRIG 138; CHOL 119; LDL 56; HDL 36 Current medication: Rosuvastatin 10 mg at bedtime Continue working on lifestyle modifications Continue improving adherence to rosuvastatin Assessment & Plan (06/18/2024 10:11 PM EDT): Last lipid profile: 03/03/24 - TRIG 138; CHOL 119; LDL 56; HDL 36 Current medication: Rosuvastatin 10 mg at bedtime Continue working on lifestyle modifications Continue improving adherence to rosuvastatin Assessment & Plan (03/11/2024 9:31 AM EST): Last lipid profile: 03/03/24 Current medication: Rosuvastatin 10 mg at bedtime Continue working on lifestyle modifications Continue improving adherence to rosuvastatin Assessment & Plan (11/30/2023 4:06 PM EDT): Last lipid profile: 02/02/23 TC 246; TG 130; HDL 47; LDL 173 Current medication: Rosuvastatin 10 mg at bedtime Continue working on lifestyle modifications Continue improving adherence to rosuvastatin Assessment & Plan (08/25/2023 7:36 AM EDT): Last lipid profile: 02/02/23 TC 246; TG 130; HDL 47; LDL 173 Current medication: Rosuvastatin 10 mg at bedtime Continue working on lifestyle modifications Continue improving adherence to rosuvastatin Assessment & Plan (06/09/2023 6:26 AM EDT): Last lipid profile: 02/02/23 TC 246; TG 130; HDL 47; LDL 173 Current medication: Rosuvastatin 5 mg at bedtime, increase to 10 mg qhs Continue working on lifestyle modifications Continue improving adherence to rosuvastatin Assessment & Plan (02/13/2023 5:32 AM EST): Last lipid profile: 02/02/23 TC 246; TG 130; HDL 47; LDL 173 Current medication: Rosuvastatin 5 mg at bedtime, questionable adherence Continue working on lifestyle modifications Continue improving adherence to rosuvastatin Assessment & Plan (08/21/2022 11:05 AM EDT): Last lipid profile: 05/09/22 TC 249; TG 106; HDL 49; LDL 177 Current medication: Rosuvastatin 5 mg at bedtime, questionable adherence Continue working on lifestyle modifications Continue improving adherence to rosuvastatin Assessment & Plan (06/04/2022 4:16 PM EDT): Last lipid profile: 05/09/22 TC 249; TG 106; HDL 49; LDL 177 Current medication: Rosuvastatin 5 mg at bedtime, questionable adherence Continue working on lifestyle modifications Continue improving adherence to rosuvastatin Hypertension 08/11/2011 Assessment & Plan (12/11/2024 11:21 PM EDT): -Goal BP < 130/80 per ACC/AHA -BP elevated today, patient states her home BP is normal. Patient adamantly refuses a new medication or medication change. -Risk factors: DM2 -Discussed about the importance of lifestyle modification and medication adherence. -Current medications: diltiazem XT 300 mg daily; losartan 100 mg daily; consider a combo medication to improve adherence. Consider changing losartan to olmesartan. -Treatment Hx: valsartan was switched to losartan when it was on recall for NDMA -Continue checking BP at home. -Continue working on lifestyle modifications -Referred to [facility] with our PharmD, CDCES. However, patient did not keep appointment. - Return for BP check in 2 weeks with our nurse. If her home BP is persistently above 135, and clinic BP is above 145, will increase diltiazem to 360 mg daily or consider adding beta-hari. Assessment & Plan (09/23/2024 10:38 AM EDT): -Goal BP < 130/80 per ACC/AHA -BP elevated today, patient states her home BP is normal. Patient adamantly refuses a new medication or medication change. -Risk factors: DM2 -Discussed about the importance of lifestyle modification and medication adherence. -Current medications: diltiazem XT 300 mg daily; losartan 100 mg daily; consider a combo medication to improve adherence. Consider changing losartan to olmesartan. -Treatment Hx: valsartan was switched to losartan when it was on recall for NDMA -Continue checking BP at home. -Continue working on lifestyle modifications -Referred to [facility] with our EDWIN Castro. However, patient did not keep appointment. - Return for BP check in 2 weeks with our nurse. If her home BP is persistently above 135, and clinic BP is above 145, will increase diltiazem to 360 mg daily or consider adding beta-hari. Assessment & Plan (09/07/2024 3:37 PM EDT): -Goal BP < 130/80 per ACC/AHA -BP elevated today, patient states her home BP is normal. Patient adamantly refuses a new medication or medication change. -Risk factors: DM2 -Discussed about the importance of lifestyle modification and medication adherence. -Current medications: diltiazem XT 300 mg daily; losartan 100 mg daily; consider a combo medication to improve adherence. Consider changing losartan to olmesartan. -Treatment Hx: valsartan was switched to losartan when it was on recall for NDMA -Continue checking BP at home. -Continue working on lifestyle modifications -Referred to [facility] with our EDWIN Castro Assessment & Plan (06/18/2024 10:07 PM EDT): -Goal BP < 140/90 per JNC-8, < 130/80 per ACC/AHA -BP elevated today -Risk factors: DM2 -Discussed about the importance of lifestyle modification and medication adherence. -Current medications: diltiazem XT 300 mg daily; losartan 100 mg daily -Treatment Hx: valsartan was switched to losartan when it was on recall for NDMA -Continue checking BP at home. -Continue working on lifestyle modifications -Referred to [facility] with our PharmD, EDWIN - Ordered BUN (Blood Urea Nitrogen) and Creatinine, Serum 06/18/24 Assessment & Plan (03/06/2024 5:33 AM EST): -Goal BP < 140/90 per JNC-8, < 130/80 per ACC/AHA -BP elevated today -Risk factors: DM2 -Discussed about the importance of lifestyle modification and medication adherence. -Current medications: diltiazem XT 300 mg daily; losartan 100 mg daily -Treatment Hx: valsartan was switched to losartan when it was on recall for NDMA -Continue checking BP at home. -Continue working on lifestyle modifications -Referred to [facility] Assessment & Plan (11/30/2023 3:58 PM EDT): -Goal BP < 140/90 per JNC-8, < 130/80 per ACC/AHA -BP elevated today -Risk factors: DM2 -Discussed about the importance of lifestyle modification and medication adherence. -Current medications: diltiazem XT 300 mg daily; losartan 100 mg daily -Treatment Hx: valsartan was switched to losartan when it was on recall for NDMA -Continue checking BP at home. -Continue working on lifestyle modifications -Referred to [facility] Assessment & Plan (08/21/2023 11:03 AM EDT): -Goal BP < 140/90 per JNC-8, < 130/80 per ACC/AHA -BP elevated today -Risk factors: DM2 -Discussed about the importance of lifestyle modification and medication adherence. -Current medications: diltiazem XT 300 mg daily; losartan 100 mg daily -Treatment Hx: valsartan was switched to losartan when it was on recall for NDMA -Continue checking BP at home. -Continue working on lifestyle modifications -Referred to [facility] Assessment & Plan (07/31/2023 7:49 PM EDT): Noted elevated BP today Possible reactive to pain -advised pt to be compliant w BP meds and to f w PCP -has apt here in 2 weeks Assessment & Plan (06/09/2023 6:21 AM EDT): -Goal BP < 140/90 per JNC-8, < 130/80 per ACC/AHA -BP elevated today -Risk factors: DM2 -Discussed about the importance of lifestyle modification and medication adherence. -Current medications: diltiazem XT 300 mg daily; losartan 100 mg daily -Treatment Hx: valsartan was switched to losartan when it was on recall for NDMA -Continue checking BP at home. -Continue working on lifestyle modifications -Referred to [facility] Assessment & Plan (02/13/2023 5:29 AM EST): -Goal BP < 140/90 per JNC-8, < 130/80 per ACC/AHA -BP -Risk factors: DM2 -Discussed about the importance of lifestyle modification and medication adherence. -Current medications: diltiazem XT 300 mg daily; losartan 100 mg daily -Treatment Hx: valsartan was switched to losartan when it was on recall for NDMA -Continue checking BP at home. -Continue working on lifestyle modifications -Referred to [facility] -Follow up in 3-6 mo or sooner prn Assessment & Plan (11/16/2022 11:25 AM EDT): -Goal BP < 140/90 per JNC-8, < 130/80 per ACC/AHA -BP not at goal today -Risk factors: DM2 -Discussed about the importance of lifestyle modification and medication adherence. -Current medications: diltiazem XT 300 mg daily; losartan 100 mg daily -Treatment Hx: valsartan was switched to losartan when it was on recall for NDMA -Continue checking BP at home. -Continue working on lifestyle modifications -Referred to [facility] Assessment & Plan (08/21/2022 11:05 AM EDT): -Goal BP < 140/90 per JNC-8, < 130/80 per ACC/AHA -BP not at goal today -Risk factors: DM2 -Discussed about the importance of lifestyle modification and medication adherence. -Current medications: diltiazem XT 300 mg daily; losartan 100 mg daily -Treatment Hx: valsartan was switched to losartan when it was on recall for NDMA -Continue checking BP at home. -Continue working on lifestyle modifications -Referred to [facility] Assessment & Plan (06/04/2022 4:06 PM EDT): -Goal BP < 140/90 per JNC-8, < 130/80 per ACC/AHA -BP not at goal today -Risk factors: DM2 -Discussed about the importance of lifestyle modification and medication adherence. -Current medications: diltiazem XT 300 mg daily; losartan 100 mg daily -Treatment Hx: valsartan was switched to losartan when it was on recall for NDMA -Continue checking BP at home. -Continue working on lifestyle modifications -Referred to [facility] Assessment & Plan (03/10/2022 6:48 AM EST): -Goal BP < 140/90 per JNC-8, < 130/80 per ACC/AHA -BP not at goal today -Risk factors: DM2 -Discussed about the importance of lifestyle modification and medication adherence. -Current medications: diltiazem XT 300 mg daily; losartan 100 mg daily -Treatment Hx: valsartan was switched to losartan when it was on recall for NDMA -Continue checking BP at home. -Continue working on lifestyle modifications -Refer to [facility] Gout 08/11/2011 Assessment & Plan (12/03/2023 5:15 AM EDT): - check uric acid level with next lab - low purine diet Vitamin D deficiency 08/11/2011 Assessment & Plan (02/13/2023 5:33 AM EST): - most recent vitamin D and calcium levels were normal in Jan 2023 Resolved Problems Problem Noted Date Diagnosed Date Resolved Date Acute hyperkalemia 08/21/2023 Acute right-sided low back p ain without sciatica 07/31/2023 12/03/2023 Assessment & Plan (07/31/2023 7:50 PM EDT): Here c/o lower back pain ,reproduced to palpation ,appears lumbalgia w no concerning neuro alarming features Neuro exam at baseline -advised warm compresses -tylenol PRN -lidoder patch prescribed -alarm signs and symptoms discussed -has apt already scheduled w her PCP for 08/22/2023 Acute deep vein thrombosis ( DVT) of distal vein of left lower extremity 07/31/2023 11/25/2023 Assessment & Plan (08/25/2023 7:21 AM EDT): - Dx 07/20/2023 left leg, recurrent vs. Progression of ole DVT - continue apixaban Assessment & Plan (07/31/2023 7:51 PM EDT): 07/20/2023 Dxed w left lg DVT Denies any melenas,BRPR -apt w hem 08/10/2023 For recurrent DVT -seems not provoked this time -advised pt to Increase eliquis 5 mg to BID from daily -refilled today -check chem today Obesity 12/07/2011 08/22/2022 Encounters Date Type Department Care Team Description 01/12/2025 Telephone [facility] [address] [place] [phone] Brant Quinones MD Durable Medical Equipment (DME: Incontinence Supplies) 12/22/2024 Orders Only [facility] [address] [place] [id number] Brant Quinones MD Type 2 diabetes mellitus with hyperglycemia, without long-term current use of insulin (HCC) (Primary Dx); Dyslipidemia; Vitamin D deficiency; Other osteoporosis without current pathological fracture; Leukocytosis, unspecified type; Anemia, unspecified type; Hypertension, unspecified type 12/14/2024 Refill [facility] [address] [place] [address] Brant Quinones MD Dyslipidemia 12/09/2024 10:30 AM EDT Office Visit [facility] [address] [place] [address] Brant Quinones MD Hypertension, unspecified type (Primary Dx); Dyslipidemia; Type 2 diabetes mellitus with hyperglycemia, without long-term current use of insulin (HCC); Deep vein thrombosis (DVT) of other vein of left lower extremity, unspecified chronicity (HCC); Moderate persistent asthma without complication; Mixed stress and urge urinary incontinence; Encounter for immunization; Nonrheumatic aortic valve stenosis 12/09/2024 Travel 12/08/2024 [address] [place] [address] Brant Quinones MD chartprep 11/26/2024 Orders Only [address] [address] Brant Quinones MD 11/24/[address] [address] Brant Quinones MD Med Refill; Medication Question 11/06/[address] [address] Brant Quinones MD Durable Medical Equipment 11/03/[address] [address] Brant Quinones MD Durable Medical Equipment (DME Request) 10/27/2024 10:30 AM EDT Clinical Support [address] [address] Lissy Chatterjee RN Hypertension, unspecified type 10/27/2024 Travel 10/23/[address] [address] Brant Quinones MD Allergic rhinitis, unspecified seasonality, unspecified trigger 10/17/[address] [address] Brant Quinones MD Durable Medical Equipment (DME Order: Small Shower Chair) 10/13/2024 10:00 AM EDT Telemedicine [address] [address] Lissy Chatterjee RN Hypertension, unspecified type 10/13/2024 Travel from Last 3 Months Immunizations Immunization Administration Dates Next Due Hep B, adult 05/16/2018,02/07/2018,11/04/2015 INFLUENZA VACCINE QUADRIVALE NT RECOMBINANT PRESERVATIVE FREE RIV4 12/15/2022,12/07/2021 Influenza Injectable Quadriv alant Preservative Free IIV4 MDCK 01/05/2020 Influenza injectable quadriv alent IIV4 with preservative 11/20/2018,11/04/2015,11/02/2014 Influenza injectable quadriv alent preservative free 11/20/2020 Influenza, High Dose Seasona l, Preservative Free 11/23/2017,10/24/2016 Influenza, IIV3, injectable 11/01/2013,1 ,11/02/2009,11/13,12/11/2007,11/12/2006,01/02/2006 ,01/02/2005,02/17/2004,12/19/2002 Influenza, Split (incl. ml fied surface antigen) 11/04/2012,12/07/2011 Influenza, seasonal, injecta ble, preservative free 12/09/2024 Pneumococcal Conjugate PCV 13 04/20/2016 Pneumococcal Polysaccharide PPSV23 11/02/2009, TD (adult), 2 Lf tetanus tox oid, preservative free, adsorbed 03/07/2022,07/20/2005 Tdap 12/06/2010 Zoster, live 04/20/2016 Social History Tobacco Use Types Packs/Day Years Used Date Smoking Tobacco: Never Passive Smoke Exposure: Never Smokeless Tobacco: Never Tobacco Cessation:Counseling Given: Not Answered Alcohol Use Standard Drinks/Week Comments Never 0 [...] Orientation Straight 12/19/2021 10 :17 AM EDT Last Filed Vital Signs Vital Sign Reading Time Taken Comments Blood Pressure 160/80 12/09/2024 10:45 AM EDT Pulse 98 12/09/2024 10:45 AM EDT Temperature 36 C (96.8 F) 12/09/2024 10:45 AM EDT Respiratory Rate 15 12/09/2024 10:4 5 AM EDT Oxygen Saturation 98% 10/27/2024 10: 24 AM EDT Inhaled Oxygen Concentration - - Weight 65.7 kg (144 lb 12.8 oz) 025 10:45 AM EDT Height 154.9 cm (5' 1 ) 09/17/2024 11:1 7 AM EDT Body Mass Index 27.36 09/17/2024 11:17 AM EDT Plan of Treatment Health Maintenance Due Date Last Done Comments Zoster Vaccines (2 of 3) 06/15/2016 04/20/2016 RSV Patients and Patients Aged 60 years or older (1 - 1-dose 75+ series) 09/27/2018 COVID-19 Vaccine ( season) 2024 02/22/2021, 05/21/2020, 04/23/2020 Lipid Panel 03/03/2025 03/03/2024, 01/19, 02/02/2023, Additional history exists Diabetes: Hemoglobin A1C 03/11/2025 025, 08/26/2024, 06/17/2024, Additional history exists Alcohol/Substance Use Screening 08/26/2025 08/26/2024 Depression Screening 08/26/2025 08/26/2024, 08/27/19 Diabetes: Foot Exam 08/26/2025 08/26/2024, 08/26/2024, 08/26/2024, Additional history exists SDOH Screening 08/26/2025 08/26/2024 Tobacco Screening 12/22/2025 12/22/2024 Eye Exam 05/05/2026 05/05/2024, 04/19, 05/05/2024, Additional history exists DTaP/Tdap/Td Vaccines (3 - Td or Tdap) 03/07/2032 03/07/2022, 12/06/2010, 07/20/2005 Pneumococcal Vaccine: 50+ Years Completed 04/20/2016, 11/02/2009, 10/31/2004 Hepatitis B Vaccines Completed 05/16/2018, 02/07/2018, 11/04/2015 Influenza Vaccine Completed 12/09/2024, , 12/15/2022, Additional history exists HIB Vaccines Aged Out No longer eligi ble based on patient's age to complete this topic HPV Vaccines Aged Out No longer eligi ble based on patient's age to complete this topic Hepatitis A Vaccines Aged Out No long er eligible based on patient's age to complete this topic IPV Vaccines Aged Out No longer eligi ble based on patient's age to complete this topic Meningococcal B Vaccine Aged Out No l onger eligible based on patient's age to complete this topic Meningococcal Vaccine Aged Out No abi alli eligible based on patient's age to complete this topic RSV under 20 months Aged Out No longe r eligible based on patient's age to complete this topic Rotavirus Vaccines Aged Out No longer eligible based on patient's age to complete this topic Goals Goal Patient Goal Type Associated Problems Recent Progress Patient-Stated? Author Help patients manage their type 2 diabetes Care Plan Help patients manage their type 2 diabetes Alicia Rubio Weekly blood pressure task Care Plan Weekly blood pressure task No Alicia Wood Help patients manage their type 2 diabetes Care Plan Help patients manage their type 2 diabetes Alicia Rubio Patient has chronic kidney disease Care Plan Patient has chronic kidney disease No Alicia Wood Weekly blood pressure task Care Plan Weekly blood pressure task No Alicia Wood Patient has chronic kidney disease Care Plan Patient has chronic kidney disease No Alicia Wood Procedures Procedure Name Priority Date/Time Associated Diagnosis Comments POCT GLYCOSYLATED HEMOGLOBIN (HGB A1C) Routine 12/09/2024 10:45 AM EDT Type 2 diabetes mellitus with hyperglycemia, without long-term current use of insulin ([facility]) POCT GLUCOSE Routine 12/09/2024 10:44 AM EDT Type 2 diabetes mellitus with hyperglycemia, without long-term current use of insulin ([facility]) LIPID PANEL WITH REFLEX TO DIRECT LDL Routine 03/03/2024 8:40 AM EST Type 2 diabetes mellitus with hyperglycemia, without long-term current use of insulin ([facility]) Mixed hyperlipidemia Dyslipidemia from Last 3 Months or Most Recently Relevant to Health Maintenance Results * (ABNORMAL) POCT glycosylated hemoglobin (Hgb A1c) (12/09/2024 10:45 AM EDT) Hemoglobin A1C 7.9(A) 4.0 - 5.7 % QC Media Lot # [id number] Lot# Expiration Date Blood Capillary blood specimen / Unknown 12/09/2024 10:45 AM EDT us Brant Quinones MD POINT OF CARE TEST ENTER/EDIT OR DERABLES Final Result * POCT glucose manually resulted (12/09/2024 10:44 AM EDT) Glucose Blood, POC 135 60 - 200 mg/dL QC Media Lot # [id number] Lot# Expiration Date Blood Capillary blood specimen / Unknown 12/09/2024 10:44 AM EDT us Brant Quinones MD POINT OF CARE TEST ENTER/EDIT OR DERABLES Final Result * (ABNORMAL) Lipid Panel with Reflex to Direct LDL (03/03/2024 8:40 AM EST) Triglycerides 138 <150 mg/dL [facility] Comment:Desirable Triglyceri de: less than 150 mg/dLBorderline High Triglyceride 150-199 mg/dLHigh Triglyceride: 200-499 mg/dLVery High Triglyceride: greater than or equal to 5OO mg/dL Cholesterol 119 <200 mg/dL [facility] Comment:Desirable Cholestero l: less than 200 mg/dLBorderline High Cholesterol: 200-239 mg/dLHigh Cholesterol: greater than 239 mg/dL LDL Cholesterol Calculated 56 <100 mg/dL [facility] Comment:Desirable LDL: less than 100 mg/dLNear Optimal/Above Optimal LDL: 110- 129 mg/dLBorderline High LDL: 130-159 mg/dLHigh LDL: 160-189 mg/dLVery High LDL: greater than or equal to 190 mg/dL HDL Cholesterol 36(L) >40 mg/dL [facility] Comment:Desirable HDL: great er than 40 mg/dL Note: This HDL assay may give artificially low results in patients with liver disease. Blood 03/03/2024 8:40 AM EST 03/03/2024 10:59 AM EST us Brant Quinones MD LAB BLOOD ORDERABLES Final Resul t [facility] [address] [place], [place] [phone] from Last 3 Months or Most Recently Relevant to Health Maintenance Additional Health Concerns Active Problems Noted Date Diagnosed Date Help patients manage their type 2 diabetes 01/12 Weekly blood pressure task 01/12/2025 Help patients manage their type 2 diabetes 01/12 Patient has chronic kidney disease 01/12/2025 Weekly blood pressure task 01/12/2025 Patient has chronic kidney disease 01/12/2025 Insurance [employer] (HMO D-SNP) [place] [id number] Advance Directives Documents on File Type Date Recorded Patient Academic Services Coordinator Expl anation Advance Directives and Living Will 08/28/2024 Health Care Proxy 08/26/24 Care Teams Environmental Laboratory Technician Relationship Specialty Start Date End Date Brant Quinones MD [address] [place] [address] PCP - General Family Medicine 02/19/18 Aveanna 08/15/24
--- OUTSIDE RECORDS SUMMARY | 2025-01-13 11:58 | XMS_ITS | Encounter Summary ---
Author Organization [employer] Address [address] [facility] 7t [place] [address] Care Team Providers Care Lead Pony Rider Name Role Phone Erum Quinones MD Primary Care Provider [phone] Reason for Visit * Reason Onset Date Comments Med Refill 11/24/2024 Medication Question 11/24/2024 Encounter Details Date Type Department Care Team ([facility] st Contact Info) Description 11/24/2024 Telephone [facility] [address] [place], [place] [phone] Erum Quinones MD [address] [place], [place] [phone] Med Refill; Medication Question Social History Tobacco Use Types Packs/Day Years [...] encounter Miscellaneous Notes * Telephone Encounter - Katy Cevallos RN - 11/26/2024 3:09 PM EDT Called pt to notify Eliquis supply sent today by PCP. Pt states she called Dr Carrillo's office againtoday and they took her message regarding refill. Advised pt to follow up with Dr. Carrillo at next appointment on 12/05/24. No further questions. * Telephone Encounter - Katy Cevallos RN - 11/26/2024 1:56 PM EDT Per outside med rec, medication last prescribed by Dr Carrillo's office at [facility] Hematology/Oncology --per office note 01/2024, pt is on long-term anticoagulation with Eliquis 5 mg b.i.d.. Called [facility] Hematology, left message on refill line asking for urgent refill for Eliquis for this patient. Called pt via [facility] #[id number], pt states she has been out for 5 days, advised pt that medication is prescribed by Dr Carrillo's office, explained functional tester typewriters called their office today to ask for urgent med refill and encouraged pt to also call and ask for urgent med refill. Pt states she had to reschedule appointment recently and told the safety specialist she was almost out of the med and the pharmacygave her 3 day emergency supply. Advised pt to call back if no word from Dr Carrillo's office by end of day. Called [facility], confirmed Rx prescribed by Dr Carrillo and was last picked up 09/18/24 for 30 day supply. * Telephone Encounter - Arash Skinner - 11/26/2024 12:48 PM EDT Pt calling regarding medication . Snapshot states Joni is prescribing doctor and pt really needsmedication as she can not be too long without taking them and and it has been 5 days since last time taken Contact pt at [phone] * Telephone Encounter - Sheba Oliveros LPN - 11/24/2024 9:55 AM EDT Medication prescribed by ESTHER CARRILLO * Telephone Encounter - Arash Skinner - 11/24/2024 9:51 AM EDT TC from pt requesting medication refill. Medications needing refill : Eliquis 5 MG tablet To be sent to: [id number] - [place] - [address] [facility] documented in this encounter Plan of Treatment Not on file documented as of this encounter Visit Diagnoses Diagnosis Deep vein thrombosis (DVT) of other vein of left lower extremity, unspecified chronicity (HCC) documented in this encounter Additional Health Concerns Assessment Noted Time PHQ-9 Depression Total Score: 6 08/27/19 25 9:05 AM EDT documented as of this encounter Care Teams Lead Pony Rider Relationship Specialty Start Date End Date Erum Quinones MD [address] [place] [address] PCP - General Family Medicine 02/19/18 Roberto 08/15/24 documented as of this encounter
--- OUTSIDE RECORDS SUMMARY | 2025-01-13 11:58 | XMS_ITS | Encounter Summary ---
Author Organization [employer] Address [address] [facility] 7t [place] [address] Care Team Providers Care Freight Loader Name Role Phone Erum Quinones MD Primary Care Provider [phone] Encounter Details Date Type Department Care Team ([facility] st Contact Info) Description 10/10/2022 Orders Only [facility] [address] [place], [place] [phone] Clyde Porter MD [address] [place] [address] Social History Tobacco Use Types Packs/Day Years Used Date Smoking Tobacco: Never Passive Smoke Exposure: Never Smokeless Tobacco: Never Comments Unknown Sex and Gender Information Value Date Recorded Sex Assigned at Female 12/19/2021 10:17 AM EDT Legal Sex Female 10:17 AM EDT Gender Identity Female 12/19/2021 10:17 AM EDT Sexual Orientation Straight 12/19/2021 10 :17 AM EDT documented as of this encounter Plan of Treatment Not on file documented as of this encounter Visit Diagnoses Not on filedocumented in this encounter Care Teams Freight Loader Relationship Specialty Start Date End Date Erum Quinones MD [address] [place], [place] [phone] PCP - General Family Medicine 02/19/18 Aveanna 08/15/24 documented as of this encounter
--- OUTSIDE RECORDS SUMMARY | 2025-01-13 11:58 | XMS_ITS | Encounter Summary ---
Author Organization [employer] Address [address] [facility] 7t [place] [address] Care Team Providers Care Pantograph Setter Name Role Phone Erum Quinones MD Primary Care Provider [phone] Encounter Details Date Type Department Care Team ([facility] st Contact Info) Description 04/21/2024 Orders Only [facility] MEDICINE [address] [place], [place] [phone] Erum Quinones MD [address] [place], [place] [phone] Social History Tobacco Use Types Packs/Day Years [...] documented as of this encounter Care Teams Pantograph Setter Relationship Specialty Start Date End Date Erum Quinones MD [address] [place] [address] PCP - General Family Medicine 02/19/18 Roberto 08/15/24 documented as of this encounter
--- OUTSIDE RECORDS SUMMARY | 2025-01-13 11:59 | XMS_ITS | Encounter Summary ---
Author Organization [employer] Address [address] [facility] 7t [place] [address] Care Team Providers Care Kohinoor Operator Name Role Phone Erum Quinones MD Primary Care Provider [phone] Encounter Details Date Type Department Care Team ([facility] st Contact Info) Description 06/25/2024 Orders Only [facility] [address] [place], [place] [phone] Erum Quinones MD [address] [place], [place] [phone] Moderate persistent asthma without complication (Primary Dx) Social History Tobacco Use Types Packs/Day Years [...] as of this encounter Visit Diagnoses Diagnosis Moderate persistent asthma without complication- Primary documented in this encounter Additional Health Concerns Assessment Noted Time PHQ-9 Depression Total Score: 0 11/26/19 24 11:40 AM EDT documented as of this encounter Care Teams Kohinoor Operator Relationship Specialty Start Date End Date Erum Quinones MD [address] [place] [address] PCP - General Family Medicine 02/19/18 Roberto 08/15/24 documented as of this encounter
--- OUTSIDE RECORDS SUMMARY | 2025-01-13 11:59 | XMS_ITS | Encounter Summary ---
Author Organization [employer] Address [address] [facility] 7t [place] [address] Care Team Providers Care Basting Puller Name Role Phone Erum Quinones MD Primary Care Provider [phone] Reason for Referral * Imaging (STAT) - Closed Specialty Diagnoses / Procedures Referred By Contac t Referred To Contact Cardiology Diagnoses Right leg swelling Procedures Vascular US lower extremity venous duplex right Erum Quinones MD [address] [place], [place] Phone: tel: fax: [address] [address] Phone: tel: fax: Referral ID Status Reason Start Date Expiration Date V isits Requested Visits Authorized [id number] Closed Perform Procedure 07/19/2023 07/18/2024 1 1 * Imaging (STAT) - Closed Specialty Diagnoses / Procedures Referred By Contac t Referred To Contact Cardiology Diagnoses Localized swelling of left lower leg Procedures Vascular US lower extremity venous duplex left Erum Quinones MD [address] [place] [address] Phone: tel: fax: [address] [address] Phone: tel: fax: Referral ID Status Reason Start Date Expiration Date V isits Requested Visits Authorized [id number] Closed Perform Procedure 07/19/2023 07/18/2024 1 1 Encounter Details Date Type Department Care Team (Late st Contact Info) Description 07/19/2023 Orders Only [facility] MEDICINE [address] [place] [address] Erum Quinones MD [address] [place], [place] [phone] Localized swelling of left lower leg (Primary Dx); Right leg swelling Social History Tobacco Use Types Packs/Day Years [...] on file documented as of this encounter Procedures Procedure Name Priority Date/Time Associated Diagnosis Comments [facility] US LOWER EXTREMITY VENOUS DUPLEX BILATERAL Routine 07/20/2023 3:21 PM EDT documented in this encounter Results * [facility] US Lower Extremity Venous Duplex Bilateral (07/20/2023 3:21 PM EDT) 07/20/2023 3:21 PM EDT Narrative [facility] - 07/20/2023 3:58 PM EDT [address] [address] Ultrasound Report Signed Patient: Karen Billy MR#: [id number] : 1945 Acct:[id number] Age/Sex: 77 / F ADM Date: 07/20/23 Loc: .US Attending Dr: Erum Quinones MD Ordering Physician: Erum Quinones MD Date of Service: 07/20/23 Procedure(s): US venous duplex LE BI Accession Number(s): [id number] cc: Erum Quinones MD EXAMINATION: US VENOUS ULTRASOUND WITH DOPPLER LOWER EXTREMITY, BILATERAL CLINICAL INFORMATION: Bilateral lower extremity swelling. History of DVT. COMPARISON: Ultrasound venous Doppler study September 30, 2019 TECHNIQUE: Ultrasound of the deep veins is performed from the hip to the calf with compression sonography and color and pulse Doppler assessment. Spectral analysis with color-flow imaging is performed. FINDINGS: RIGHT: There is normal venous compression and respiratory variation and augmented flow. The visualized common femoral vein, superficial femoral vein, profunda femoral vein, popliteal vein, and the trifurcation region shows no evidence of deep venous thrombosis. There is no significant popliteal fossa cyst. LEFT: Duplicated femoral vein. There is thrombus present in the anterior branch of the femoral vein from the proximal thigh to the popliteal vein. The proximal portion of the popliteal venous thrombosis. The mid and distal portion of the popliteal vein demonstrates partial vascular flow. The posterior duplicated branch of the femoral vein demonstrates normal patent vascularity. Normal vascular flow in the greater saphenous vein and the profunda vein. The posterior tibial vein and the peroneal vein in the calf are both patent. Compared to prior study of September 29, 2022 thrombus in the left lower extremity has progressed. Difficult to otherwise determine chronicity of the thrombus. US/US venous duplex LE BI IMPRESSION: 1. No DVT demonstrated in the right lower extremity. 2. Duplicated left femoral vein. There is thrombus present in the anterior branch of the femoral vein from the proximal thigh to the popliteal vein. The mid and distal portion of the popliteal vein demonstrates partial vascular flow. This critical result was discussed with Erum Quinones on 07/20/2023 at 1530 hours and it was ascertained that the content and urgency of the report was understood at the time of direct communication. Dictated By: Bossman Meza MD Signed By: <Electronically signed by Bossman Meza MD in OV> 07/20/23 1554 DD/ 1521 TD/TT: Hot End Operator: STEVEN Procedure Note Donotuseinterpreter, Image - 07/20/2023 [place] [address] Ultrasound Report Signed Patient: Brandy Billy#: [id number] : 1945cct:[id number] Age/Sex: 77 / FADM Date: 07/20/23 Loc: . Attending Dr: Erum Quinones MD Ordering Physician: Erum Quinones MD Date of Service: 07/20/23 Procedure(s): US venous duplex LE BI Accession Number(s): [id number] cc: Erum Quinones MD EXAMINATION: US VENOUS ULTRASOUND WITH DOPPLER LOWER EXTREMITY, BILATERAL CLINICAL INFORMATION: Bilateral lower extremity swelling. History of DVT. COMPARISON: Ultrasound venous Doppler study September 30, 2019 TECHNIQUE: Ultrasound of the deep veins is performed from the hip to the calf with compression sonography and color and pulse Doppler assessment. Spectral analysis with color-flow imaging is performed. FINDINGS: RIGHT: There is normal venous compression and respiratory variation and augmented flow. The visualized common femoral vein, superficial femoral vein, profunda femoral vein, popliteal vein, and the trifurcation region shows no evidence of deep venous thrombosis. There is no significant popliteal fossa cyst. LEFT: Duplicated femoral vein. There is thrombus present in the anterior branch of the femoral vein from the proximal thigh to the popliteal vein. The proximal portion of the popliteal venous thrombosis. The mid and distal portion of the popliteal vein demonstrates partial vascular flow. The posterior duplicated branch of the femoral vein demonstrates normal patent vascularity. Normal vascular flow in the greater saphenous vein and the profunda vein. The posterior tibial vein and the peroneal vein in the calf are both patent. Compared to prior study of September 29, 2022 thrombus in the left lower extremity has progressed. Difficult to otherwise determine chronicity of the thrombus. US/US venous duplex LE BI IMPRESSION: 1. No DVT demonstrated in the right lower extremity. 2. Duplicated left femoral vein. There is thrombus present in the anterior branch of the femoral vein from the proximal thigh to the popliteal vein. The mid and distal portion of the popliteal vein demonstrates partial vascular flow. This critical result was discussed with Erum Quinones on 07/20/2023 at 1530 hours and it was ascertained that the content and urgency of the report was understood at the time of direct communication. Dictated By: Bossman Meza MD Signed By: <Electronically signed by Bossman Meza MD in OV> 07/20/23 1554 DD/ 1521 TD/TT: Hot End Operator: STEVEN Erum Quinones MD CV VASCULAR PROCEDURES Final Res ult [facility] [address] [place] [address] documented in this encounter Visit Diagnoses Diagnosis Localized swelling of left lower leg- Primary Right leg swelling documented in this encounter Additional Health Concerns Assessment Noted Time PHQ-9 Depression Total Score: 0 11/17/19 23 10:44 AM EDT documented as of this encounter Care Teams Basting Puller Relationship Specialty Start Date End Date Erum Quinones MD [address] [place] [address] PCP - General Family Medicine 02/19/18 Aveanna 08/15/24 documented as of this encounter
--- OUTSIDE RECORDS SUMMARY | 2025-01-13 11:59 | XMS_ITS | Encounter Summary ---
Author Organization [employer] Address [address] [facility] 7t [place] [address] Care Team Providers Care Fellmongery Worker Name Role Phone Erum Quinones MD Primary Care Provider [phone] Reason for Referral * Consultation (Routine) - Closed Specialty Diagnoses / Procedures Referred By Controsario t Referred To Contact Hematology and Oncology Diagnoses Deep vein thrombosis (DVT) of femoral vein of left lower extremity, unspecified chronicity (HCC) Erum Quinones MD [address] [place] [address] Phone: tel: fax: [facility] Referral ID Status Reason Start Date Expiration Date V isits Requested Visits Authorized [id number] Closed Specialty Services Required 07/21/2023 07/20/2024 1 1 Encounter Details Date Type Department Care Team (Late st Contact Info) Description 07/21/2023 Orders Only [facility] MEDICINE [address] [place] [phone] Erum Quinones MD [address] [place], [place] [phone] Deep vein thrombosis (DVT) of femoral vein of left lower extremity, unspecified chronicity (CMS/HCC) (Primary Dx) Social History Tobacco Use Types [...] of this encounter Plan of Treatment Scheduled Referrals Name Type Priority Associated Diagnoses Orde r Schedule Referral to Hematology / Oncology Outpatient Referral Routine Deep vein thrombosis (DVT) of femoral vein of left lower extremity, unspecified chronicity (CMS/HCC) Expected: 07/21/2023 (Approximate), Expires: 07/20/2024 documented as of this encounter Visit Diagnoses Diagnosis Deep vein thrombosis (DVT) of femoral vein of left lower extremity, unspecified chronicity (HCC)- Primary documented in this encounter Additional Health Concerns Assessment Noted Time PHQ-9 Depression Total Score: 0 11/17/19 23 10:44 AM EDT documented as of this encounter Care Teams Fellmongery Worker Relationship Specialty Start Date End Date Erum Quinones MD [address] [place] [address] PCP - General Family Medicine 02/19/18 Aveanna 08/15/24 documented as of this encounter
--- OUTSIDE RECORDS SUMMARY | 2025-01-13 11:59 | XMS_ITS | Encounter Summary ---
Author Organization [employer] Address [address] [facility] 7t [place] [address] Care Team Providers Care Employee Services Manager Name Role Phone Erum Quinones MD Primary Care Provider Reason for Visit * Reason Comments Med Refill Encounter Details Date Type Department Care Team ([facility] st Contact Info) Description 10/23/2023 Refill [facility] MED[facility]INE [address] [place], [place] [phone] Erum Quinones MD [address] [place], [place] [phone] Allergic rhinitis, unspecified seasonality, unspecified trigger Social History Tobacco Use Types Packs/Day Years [...] as of this encounter Visit Diagnoses Diagnosis Allergic rhinitis, unspecified seasonality, unspecified trigger documented in this encounter Additional Health Concerns Assessment Noted Time PHQ-9 Depression Total Score: 0 11/17/19 23 10:44 AM EDT documented as of this encounter Care Teams Employee Services Manager Relationship Specialty Start Date End Date Erum Quinones MD [address] [place] [address] PCP - General Family Medicine 02/19/18 Avearonald 08/15/24 documented as of this encounter
--- OUTSIDE RECORDS SUMMARY | 2025-01-13 11:59 | XMS_ITS | Encounter Summary ---
Author Organization [employer] Address [address] [facility] [address] [place] [address] Care Team Providers Care Steam Shovel Engineer Name Role Phone Erum Quinones MD Primary Care Provider [phone] Reason for Visit * Reason Comments Med Refill Encounter Details Date Type Department Care Team ([facility] st Contact Info) Description 08/03/2023 Refill [facility] [address] [place], [place] [phone] Erum Quinones MD [address] [place], [place] [phone] Social History Tobacco Use Types Packs/Day Years [...] t he electric, gas, oil or water [email or web address] threatened to shut off services in your [...] documented as of this encounter Care Teams Steam Shovel Engineer Relationship Specialty Start Date End Date Erum Quinones MD [address] [place] [address] PCP - General Family Medicine 02/19/18 Roberto 08/15/24 documented as of this encounter
--- OUTSIDE RECORDS SUMMARY | 2025-01-13 11:59 | XMS_ITS | Encounter Summary ---
Author Organization [employer] Address [address] [facility] [address] [place] [address] Care Team Providers Care Medical Device Assembler Name Role Phone Erum Quinones MD Primary Care Provider [phone] Encounter Details Date Type Department Care Team ([facility] st Contact Info) Description 07/30/2024 Telephone [facility] MED[facility]INE [address] [place], [place] [phone] Erum Quinones MD [address] [place], [place] [phone] Social History Tobacco Use Types Packs/Day Years [...] documented as of this encounter Care Teams Medical Device Assembler Relationship Specialty Start Date End Date Erum Quinones MD [address] [place] [address] PCP - General Family Medicine 02/19/18 Roberto 08/15/24 documented as of this encounter
--- OUTSIDE RECORDS SUMMARY | 2025-01-13 11:59 | XMS_ITS | Encounter Summary ---
Author Organization [employer] Address [address] [facility] [address] [place] [address] Care Team Providers Care Shrinking Machine Operator Name Role Phone Erum Quinnoes MD Primary Care Provider [phone] Reason for Visit * Reason Onset Date Comments ER Follow-up 07/23/2023 Encounter Details Date Type Department Care Team ([facility] st Contact Info) Description 07/23/2023 Telephone [facility] MEDICINE [address] [place], [place] [phone] Erum Quinones MD [address] [place], [place] [phone] ER Follow-up Social History Tobacco Use Types Packs/Day Years [...] encounter Miscellaneous Notes * Telephone Encounter - Yvette Sunshine RN - 07/23/2023 9:47 AM EDT Telephone call returned to patient in regards to below message. Patient stated she was calling for referral and will be waiting for appointment. Patient is on Eliquis for the next month per ED. Patient verbalized understanding and denied having any further questions or concerns at this time. * Telephone Encounter - Yvette Sunshine RN - 07/23/2023 9:42 AM EDT Erum Quinones MD [facility] Team Nurses Patient was diagnosed with DVT on 07/20/23. Please call for status check. Patient is scheduled a RV on 08/20/23. We can keep 08/20/23 or change to a sooner appointment for ED follow up / RV. Please informpatient to do her lab prior to the visit (ordered previously). 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 Thank you. * Telephone Encounter - Jocelyne Son - 07/23/2023 9:07 AM EDT Patient calling to report ED visit on : Date: 07/19 Hospital: [facility] [place] Seen for: clot in a leg Patient advised will forward to team nurse for follow up. documented in this encounter Plan of Treatment Not on file documented as of this encounter Visit Diagnoses Not on filedocumented in this encounter Additional Health Concerns Assessment Noted Time PHQ-9 Depression Total Score: 0 11/17/19 10:44 AM EDT documented as of this encounter Care Teams Shrinking Machine Operator Relationship Specialty Start Date End Date Erum Quinones MD [address] [place] [address] PCP - General Family Medicine 02/19/18 Ave[place] 08/15/24 documented as of this encounter
== END ==
LOC: HO.CARD 09:59
PROVIDERS: PCP Family Medicine; Visit Provider Internal Medicine Cardiovascular Disease
DX: I35.0 Nonrheumatic aortic (valve) stenosis (principal)
CPT/HCPCS: 93306

== ENCOUNTER → 2025-01-13 10:03 | Outpatient (BNV) | payer OTHER, SELFPAY | PROVIDERS: PCP Family Medicine; Visit Provider Internal Medicine | DX: I51.89 Other ill-defined heart diseases (principal) | CPT/HCPCS: 93306 ==